=== PATIENT | female | born 1990 | race Caucasian/White ===

== ENCOUNTER 2016-03-20 03:06 | Inpatient (IN) | payer OTHER ==
[~2016-03-20] VITALS: Ht 170.2 cm; Wt 80.1 kg
[~2016-03-20 03:06] MED LIST: ABIL10TA OR; BUSP10TA PO; BUSP15TA47 PO; Calcium/Vitamin D; DEPA1TAB3 PO; DEPA250T2 PO; DEPA250T32 PO; DEPA500T2 PO; DIVA250T PO; DIVA500T3 PO; DIVALPROEX PO; EPIP0.3I2 IM; EPIPEN IM; EXCETAB81 PO; FLUO10CA9 PO; FLUO20CA8 PO; FLUO20CA9 PO; GABA600T PO; LATU20TA PO; NEUR600T OR; NEUR600T PO; OMEP20CA3 PO; PALI1TAB2 PO; PROZ10CA7 PO; PROZ20CA11 PO; TRAZ50TA4 PO; TRAZO50TA PO; WELL100T2 OR; ZOLO100T OR; ZOLO50TA OR; [UNRECOGNIZED DRUG - OTHER] PO; [UNRECOGNIZED DRUG - OTHER] PO
[2016-03-20 03:48] LABS: MEAN CORPUSCULAR HEMOGLOBIN 28.6 pg (27.0-33.0); MEAN CORPUSCULAR HGB CONC 32.7 g/dl (32.0-36.5); MEAN CORPUSCULAR VOLUME 87.5 fl (80.0-96.0); RED CELL DISTRIBUTION WIDTH 13.1 % (11.5-14.5)
[2016-03-20] MEDS ORDERED: ADACEL/BOOSTRIX VACCINE (DIPHTH/PERTUSS/ACELL/TETANUS)0.5ML SYR (90715) As Ordered ONE (03:54)
[2016-03-20 04:05] LABS: CONTROL LINE HCG INT CTR LINE PRESENT
[2016-03-20 04:06] LABS: AMPHETAMINES LEVEL URINE NEGATIVE (NEGATIVE); BENZODIAZEPINES URINE NEGATIVE (NEGATIVE); COCAINE METABOLITE URINE NEGATIVE (NEGATIVE); CONTROL LINE INT CTR LINE PRESENT; METHADONE URINE NEGATIVE (NEGATIVE); OPIATES URINE NEGATIVE (NEGATIVE); TRICYCLIC ANTIDEPRESS URINE NEGATIVE (NEGATIVE)
[2016-03-20 04:18] LABS: ALBUMIN 3.8 GM/DL (3.2-5.2); ALBUMIN/GLOBULIN RATIO 1.15 (1.00-1.93); ALKALINE PHOSPHATASE 57 U/L (45-117); ALT/SGPT 15 U/L (12-78); ANION GAP 11 MEQ/L (8-16); AST/SGOT 15 U/L (15-37); BILIRUBIN,DIRECT < 0.1 MG/DL (0.0-0.2); BILIRUBIN,TOTAL 0.1 MG/DL (0.2-1.0); BLOOD UREA NITROGEN 7 MG/DL (7-18); CALCIUM LEVEL 8.5 MG/DL (8.5-10.1); CARBON DIOXIDE LEVEL 25 MEQ/L (21-32); CHLORIDE LEVEL 106 MEQ/L (98-107); CREATININE FOR GFR 0.68 MG/DL (0.55-1.02); GLOMERULAR FILTRATION RATE > 60.0 (>60); GLUCOSE, FASTING 92 MG/DL (70-105); POTASSIUM SERUM 3.9 MEQ/L (3.5-5.1); SODIUM LEVEL 142 MEQ/L (136-145); TOTAL PROTEIN 7.1 GM/DL (6.4-8.2)
[2016-03-20] MEDS ORDERED: MOM 30ML SUSPENSION UDC PO PRN (04:30)
[2016-03-20] MEDS ORDERED: MAALOX 30 ML SUSP *UDC PO PRN (04:30)
[2016-03-20] MEDS ORDERED: HALOPERIDOL 5 MG TAB PO PRN (04:30)
[2016-03-20 04:52] VITALS: BP 135/87
--- NOTE | 2016-03-20 05:23 | EDDOCDS ---
Physician Documentation [facility] Name: Ellie Santos Age: 25 yrs Sex: Female : 1990 Arrival Date: 03/20/2016 Time: 03:06 Bed OBSERVATION Private MD: Disposition: 03/20/16 05:20 Hospitalization ordered by Stevo Brenner for Inpatient Admission. Preliminary diagnosis are Intentional self-harm by other sharp object, Personal risk factors, not elsewhere classified. - Bed requested for Admit. - Status is Inpatient Admission. kb5 - Condition is Stable. - Problem is an ongoing problem. - Symptoms are unchanged. Historical: - Allergies: bee stings (Anaphylaxis); Hydroxyzine (unable to void); - Home Meds: 1. Depakote 500 mg Oral TbEC 1 tab 2 times per day (Last dose: 03/19/2016) 2. fluoxetine 40 mg oral cap 1 cap once daily (Last dose: 03/19/2016) 3. gabapentin 600 mg Oral tab 1 tab 3 times per day (Last dose: 03/19/2016) 4. omeprazole 20 mg Oral TbEC 20 mg daily (Last dose: 03/19/2016 17:00) 5. Excedrin Migraine 250-250-65 mg Oral tab 2 tablets as needed (Last dose: 03/19/2016 20:00) - PMHx: Anxiety; Bipolar disorder; GERD; PTSD; Migraine Headaches; Seizures; Cirrhosis; - PSHx: none; - Social history: Smoking status: Patient states was never smoker of tobacco. No barriers to communication noted, The patient speaks fluent Thai, Speaks appropriately for age. - Family history: Not pertinent. - : The pt / caregiver states he / she is not on anticoagulants. Home medication list is obtained from the patient, [employer] import data. - Exposure Risk Screening:: None identified. [employer]SI[employer] RU[employer]ER: 03/20 03:36 LMP 03/02/2016 kmg1 Vital Signs: 03:50 BP 124 / 72; Pulse 94; Resp 18; Temp 98.5(O); Pulse Ox 100% on R/A; Weight 77.11 kg / kb5 170 lbs (R); Height 5 ft. 7 in. (170.18 cm); Pain 0/10; 03:50 Body Mass Index 26.63 (77.11 kg, 170.18 cm) kb5 MDM: 03:10 Consult PFS/PSA/Irrigating Pump Operator ordered. cs11 03:10 Consult PFS/PSA/Irrigating Pump Operator: Patient's case requires discussion with on-call cs11 Psychiatrist ordered. 03:10 PSA/PFS to call Nursing [employer], to enter patient data on [place] Safe Act if patient cs11 involuntarily admitted or transferred for SI or HI ordered. 03:10 Confirm accurate psychiatric medication list and times of last dosage ordered. cs11 03:10 Detain Pt Until Medically/PFS Cleared ordered. cs11 03:10 Acetaminophen Level Ordered. EDMS 03:10 Basic Metabolic Profile Ordered. EDMS 03:11 Complete Blood Count Ordered. EDMS 03:11 Drug Eval Toxicology ED Only Ordered. EDMS 03:11 Ethyl Alcohol (ethanol) Ordered. EDMS 03:11 HCG,Serum Qualitative Ordered. EDMS 03:11 Liver Profile Ordered. EDMS 03:11 Salicylate Level Ordered. EDMS 03:11 Thyroid Stimulating Hormone Ordered. EDMS 03:11 DEPAKOTE Ordered. EDMS 03:11 Ammonia (Little Green Tube on Ice, Not Pea Green) Ordered. EDMS 03:44 Tetanus- Diptheria-Acellular Pertussis 0.5 ml IM once; Routine booster 10-64yrs, >64 cs11 with child contact [employer] ordered. 04:13 Consult PFS/PSA/Irrigating Pump Operator complete. cl 04:13 Consult PFS/PSA/Irrigating Pump Operator: Patient's case requires discussion with on-call cl Psychiatrist complete. 04:13 PSA/PFS to call Nursing [employer], to enter patient data [place] Safe [place] if patient cl involuntarily admitted or transferred for SI or HI complete. 04:34 Admit to IMHU: ordered. EDMS 04:34 REGULAR DIET ordered. EDMS 04:35 [facility] Legal paperwork was scanned into [employer] and attached to record. cl 04:49 Acetaminophen Level Reviewed. cs11 04:49 Liver Profile Reviewed. cs11 04:49 Salicylate Level Reviewed. cs11 04:49 DEPAKOTE Reviewed. cs11 04:49 Basic Metabolic Profile Reviewed. cs11 04:49 Complete Blood Count Reviewed. cs11 04:49 Drug Eval Toxicology ED Only Reviewed. cs11 04:49 Ethyl Alcohol (ethanol) Reviewed. cs11 04:49 HCG,Serum Qualitative Reviewed. cs11 04:49 Thyroid Stimulating Hormone Reviewed. cs11 04:49 Ammonia (Little Green Tube on Ice, Not Pea Green) Reviewed. cs11 04:49 Consult PFS/PSA/Socail Worker: Cleared medically for eval ordered. cs11 05:01 Consult PFS/PSA/Socail Worker: Cleared medically for eval complete. cl 05:02 [facility] Payment Agreement was scanned into [employer] and attached to record. [facility] 05:02 Financial registration complete. a 05:19 BED REQUEST+ADM ordered. EDMS Administered Medications: 03:58 Drug: Tetanus- Diptheria-Acellular Pertussis 0.5 ml [diphth,pertussis(acel),tetanus 2.5 ka4 Lf unit-8 mcg-5 Lf/0.5mL IM syringe (0.5 mL)] {Mannequin Decorator: [employer]. Exp: 05/04/2018. Lot #: [id number]. } Route: IM; Site: left deltoid; Signatures: Dispatcher [employer] EDMS Romelia Barrera, RN RN kmg1 Juanita, Hira, PSA PSA cl Wilfrid Ragland, NUTRITIONALIST NUTRITIONALIST kb5 Saravanan Kaminski, DO cs11 Hannah Stafford,SLITTER OPERATOR SLITTER OPERATOR ka4 Arel, Lourdes cason The chart was reviewed and I authenticate all verbal orders and agree with the evaluation and treatment provided.Attachments: 05:02 [facility] Payment Agreement [facility] MTDD
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
[2016-03-20] MEDS: LORazepam 1 MG TAB PO PRN (05:46)
[2016-03-20] MEDS ORDERED: DEPA1TAB3 PO (06:32)
[2016-03-20] MEDS ORDERED: GABA-283 PO (06:32)
[2016-03-20] MEDS ORDERED: PROZ40CA PO (06:32)
[2016-03-20] MEDS: FLUoxetine 20 MG CAP PO SCH (09:13)
[2016-03-20] MEDS: DIVALPROEX 500 MG TAB PO SCH ×2 (09:14→21:11)
[2016-03-20] MEDS: GABAPENTIN 300 MG CAP PO SCH ×3 (09:14→21:11)
[2016-03-20] MEDS: busPIRone 10 MG TAB NG SCH ×2 (13:26→21:11)
[2016-03-20] MEDS ORDERED: DEPA500T2 PO (16:38)
[2016-03-20 18:00] VITALS: BP 135/67
[2016-03-21 06:09] VITALS: BP 130/60
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
[2016-03-21] MEDS: busPIRone 10 MG TAB NG SCH ×2 (08:40→20:35)
[2016-03-21] MEDS: GABAPENTIN 300 MG CAP PO SCH ×3 (08:40→20:35)
[2016-03-21] MEDS: FLUoxetine 20 MG CAP PO SCH (08:40)
[2016-03-21] MEDS: DIVALPROEX 500 MG TAB PO SCH ×2 (08:41→20:35)
[2016-03-21] MEDS: LORazepam 1 MG TAB PO PRN (08:41)
[2016-03-21] MEDS ORDERED: BACITRACIN OINT 30GM TOP PRN (10:45)
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
[2016-03-21 18:00] VITALS: BP 125/68
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
[2016-03-22 06:22] VITALS: BP 104/56
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
--- NOTE | 2016-03-22 06:23 | EDDOCDS ---
Physician Documentation [facility] Name: Ellie Santos Age: 25 yrs Sex: Female : 1990 Arrival Date: 03/20/2016 Time: 03:06 Bed OBSERVATION Private MD: Disposition: 03/20/16 05:20 Hospitalization ordered by Stevo Brenner for Inpatient Admission. Preliminary diagnosis are Intentional self-harm by other sharp object, Personal risk factors, not elsewhere classified. - Bed requested for Admit. - Status is Inpatient Admission. kb5 - Condition is Stable. - Problem is an ongoing problem. - Symptoms are unchanged. Historical: - Allergies: bee stings (Anaphylaxis); Hydroxyzine (unable to void); - Home Meds: 1. Depakote 500 mg Oral TbEC 1 tab 2 times per day (Last dose: 03/19/2016) 2. fluoxetine 40 mg oral cap 1 cap once daily (Last dose: 03/19/2016) 3. gabapentin 600 mg Oral tab 1 tab 3 times per day (Last dose: 03/19/2016) 4. omeprazole 20 mg Oral TbEC 20 mg daily (Last dose: 03/19/2016 17:00) 5. Excedrin Migraine 250-250-65 mg Oral tab 2 tablets as needed (Last dose: 03/19/2016 20:00) - PMHx: Anxiety; Bipolar disorder; GERD; PTSD; Migraine Headaches; Seizures; Cirrhosis; - PSHx: none; - Social history: Smoking status: Patient states was never smoker of tobacco. No barriers to communication noted, The patient speaks fluent Spanish, Speaks appropriately for age. - Family history: Not pertinent. - : The pt / caregiver states he / she is not on anticoagulants. Home medication list is obtained from the patient, [employer] import data. - Exposure Risk Screening:: None identified. ED TEACHER: 03/20 03:36 LMP 03/02/2016 kmg1 Vital Signs: 03:50 BP 124 / 72; Pulse 94; Resp 18; Temp 98.5(O); Pulse Ox 100% on R/A; Weight 77.11 kg / kb5 170 lbs (R); Height 5 ft. 7 in. (170.18 cm); Pain 0/10; 03:50 Body Mass Index 26.63 (77.11 kg, 170.18 cm) kb5 MDM: 03:10 Consult PFS/PSA/Jukebox Coin Collector ordered. cs11 03:10 Consult PFS/PSA/Jukebox Coin Collector: Patient's case requires discussion with on-call cs11 Psychiatrist ordered. 03:10 PSA/PFS to call Nursing Overlock Waistline Joiner, to enter patient data on [place] if patient cs11 involuntarily admitted or transferred for SI or HI ordered. 03:10 Confirm accurate psychiatric medication list and times of last dosage ordered. cs11 03:10 Detain Pt Until Medically/PFS Cleared ordered. cs11 03:10 Acetaminophen Level Ordered. EDMS 03:10 Basic Metabolic Profile Ordered. EDMS 03:11 Complete Blood Count Ordered. EDMS 03:11 Drug Eval Toxicology ED Only Ordered. EDMS 03:11 Ethyl Alcohol (ethanol) Ordered. EDMS 03:11 HCG,Serum Qualitative Ordered. EDMS 03:11 Liver Profile Ordered. EDMS 03:11 Salicylate Level Ordered. EDMS 03:11 Thyroid Stimulating Hormone Ordered. EDMS 03:11 DEPAKOTE Ordered. EDMS 03:11 Ammonia (Little Green Tube on Ice, Not Pea Green) Ordered. EDMS 03:44 Tetanus- Diptheria-Acellular Pertussis 0.5 ml IM once; Routine booster 10-64yrs, >64 cs11 with child contact [place] ordered. 04:13 Consult PFS/PSA/Jukebox Coin Collector complete. cl 04:13 Consult PFS/PSA/Jukebox Coin Collector: Patient's case requires discussion with on-call cl Psychiatrist complete. 04:13 PSA/PFS to call Nursing Overlock Waistline Joiner, to enter [place] data [place] if patient cl involuntarily admitted or transferred for SI or HI complete. 04:34 Admit to IMHU: ordered. EDMS 04:34 REGULAR DIET ordered. EDMS 04:35 [facility] Legal paperwork was scanned into [employer] and attached to record. cl 04:49 Acetaminophen Level Reviewed. cs11 04:49 Liver Profile Reviewed. cs11 04:49 Salicylate Level Reviewed. cs11 04:49 DEPAKOTE Reviewed. cs11 04:49 Basic Metabolic Profile Reviewed. cs11 04:49 Complete Blood Count Reviewed. cs11 04:49 Drug Eval Toxicology ED Only Reviewed. cs11 04:49 Ethyl Alcohol (ethanol) Reviewed. cs11 04:49 HCG,Serum Qualitative Reviewed. cs11 04:49 Thyroid Stimulating Hormone Reviewed. cs11 04:49 Ammonia (Little Green Tube on Ice, Not Pea Green) Reviewed. cs11 04:49 Consult PFS/PSA/Socail Worker: Cleared medically for eval ordered. cs11 05:01 Consult PFS/PSA/Socail Worker: Cleared medically for eval complete. cl 05:02 [facility] Payment Agreement was scanned into [employer] and attached to record. lja 05:02 Financial registration complete. lja 05:19 BED REQUEST+ADM ordered. EDAZ 14:45 T-Sheet-- Draft Copy was scanned into [employer] and attached to record. gb Administered Medications: 03:58 Drug: Tetanus- Diptheria-Acellular Pertussis 0.5 ml [diphth,pertussis(acel),tetanus 2.5 ka4 Lf unit-8 mcg-5 Lf/0.5mL IM syringe (0.5 mL)] {[employer] Attendant: [employer]. Exp: 05/04/2018. Lot #: [id number]. } Route: IM; Site: left deltoid; Signatures: Dispatcher [employer] EDAZ Romelia Barrera, RN RN kmg1 Juanita, Hira, PSA PSA cl Kyarat, Trinh, Reg Reg gb [place], Wilfrid, ONCOLOGY REP SPECIALIST ONCOLOGY REP SPECIALIST kb5 Saravanan Kaimnski, DO cs11 Hannah Stafford,OUTSOLE CUTTER MACHINE OUTSOLE CUTTER MACHINE ka4 Lourdes Dean The chart was reviewed and I authenticate all verbal orders and agree with the evaluation and treatment provided.Attachments: 05:02 [facility] Payment Agreement lja 14:45 T-Sheet-- Draft Copy gb Chart Complete MTDD
--- NOTE | 2016-03-22 06:23 | EDDOCDS ---
Physician Documentation [facility] Name: Ellie Santos Age: 25 yrs Sex: Female : 1990 Arrival Date: 03/20/2016 Time: 03:06 Bed OBSERVATION Private MD: Disposition: 03/20/16 05:20 Hospitalization ordered by Stevo Brenner for Inpatient Admission. Preliminary diagnosis are Intentional self-harm by other sharp object, Personal risk factors, not elsewhere classified. - Bed requested for Admit. - Status is Inpatient Admission. kb5 - Condition is Stable. - Problem is an ongoing problem. - Symptoms are unchanged. Historical: - Allergies: bee stings (Anaphylaxis); Hydroxyzine (unable to void); - Home Meds: 1. Depakote 500 mg Oral TbEC 1 tab 2 times per day (Last dose: 03/19/2016) 2. fluoxetine 40 mg oral cap 1 cap once daily (Last dose: 03/19/2016) 3. gabapentin 600 mg Oral tab 1 tab 3 times per day (Last dose: 03/19/2016) 4. omeprazole 20 mg Oral TbEC 20 mg daily (Last dose: 03/19/2016 17:00) 5. Excedrin Migraine 250-250-65 mg Oral tab 2 tablets as needed (Last dose: 03/19/2016 20:00) - PMHx: Anxiety; Bipolar disorder; GERD; PTSD; Migraine Headaches; Seizures; Cirrhosis; - PSHx: none; - Social history: Smoking status: Patient states was never smoker of tobacco. No barriers to communication noted, The patient speaks fluent Kyrgyz, Speaks appropriately for age. - Family history: Not pertinent. - : The pt / caregiver states he / she is not on anticoagulants. Home medication list is obtained from the patient, [employer] import data. - Exposure Risk Screening:: None identified. ROOM SERVICE MANAGER: 03/20 03:36 LMP 03/02/2016 kmg1 Vital Signs: 03:50 BP 124 / 72; Pulse 94; Resp 18; Temp 98.5(O); Pulse Ox 100% on R/A; Weight 77.11 kg / kb5 170 lbs (R); Height 5 ft. 7 in. (170.18 cm); Pain 0/10; 03:50 Body Mass Index 26.63 (77.11 kg, 170.18 cm) kb5 MDM: 03:10 Consult PFS/PSA/Head Up Operator Helper ordered. cs11 03:10 Consult PFS/PSA/Head Up Operator Helper: Patient's case requires discussion with on-call cs11 Psychiatrist ordered. 03:10 PSA/PFS to call Nursing Dial Screw Assembler, to enter [place] data [place] if patient cs11 involuntarily admitted or transferred for SI or HI ordered. 03:10 Confirm accurate psychiatric medication list and times of last dosage ordered. cs11 03:10 Detain Pt Until Medically/PFS Cleared ordered. cs11 03:10 Acetaminophen Level Ordered. EDMS 03:10 Basic Metabolic Profile Ordered. EDMS 03:11 Complete Blood Count Ordered. EDMS 03:11 Drug Eval Toxicology ED Only Ordered. EDMS 03:11 Ethyl Alcohol (ethanol) Ordered. EDMS 03:11 HCG,Serum Qualitative Ordered. EDMS 03:11 Liver Profile Ordered. EDMS 03:11 Salicylate Level Ordered. EDMS 03:11 Thyroid Stimulating Hormone Ordered. EDMS 03:11 DEPAKOTE Ordered. EDMS 03:11 Ammonia (Little Green Tube on Ice, Not Pea Green) Ordered. EDMS 03:44 Tetanus- Diptheria-Acellular Pertussis 0.5 ml IM once; Routine booster 10-64yrs, >64 cs11 with child contact [place] ordered. 04:13 Consult PFS/PSA/Head Up Operator Helper complete. cl 04:13 Consult PFS/PSA/Head Up Operator Helper: Patient's case requires discussion with on-call cl Psychiatrist complete. 04:13 PSA/PFS to call Nursing Dial Screw Assembler, to enter patient data [place] if patient cl involuntarily admitted or transferred for SI or HI complete. 04:34 Admit to IMHU: ordered. EDMS 04:34 REGULAR DIET ordered. EDMS 04:35 [facility] Legal paperwork was scanned into [facility] and attached to record. cl 04:49 Acetaminophen Level Reviewed. cs11 04:49 Liver Profile Reviewed. cs11 04:49 Salicylate Level Reviewed. cs11 04:49 DEPAKOTE Reviewed. cs11 04:49 Basic Metabolic Profile Reviewed. cs11 04:49 Complete Blood Count Reviewed. cs11 04:49 Drug Eval Toxicology ED Only Reviewed. cs11 04:49 Ethyl Alcohol (ethanol) Reviewed. cs11 04:49 HCG,Serum Qualitative Reviewed. cs11 04:49 Thyroid Stimulating Hormone Reviewed. cs11 04:49 Ammonia (Little Green Tube on Ice, Not Pea Green) Reviewed. cs11 04:49 Consult PFS/PSA/Socail Worker: Cleared medically for eval ordered. cs11 05:01 Consult PFS/PSA/Socail Worker: Cleared medically for eval complete. cl 05:02 [facility] Payment Agreement was scanned into [facility] and attached to record. lja 05:02 Financial registration complete. lja 05:19 BED REQUEST+ADM ordered. EDTX 14:45 T-Sheet-- Draft Copy was scanned into [facility] and attached to record. gb Administered Medications: 03:58 Drug: Tetanus- Diptheria-Acellular Pertussis 0.5 ml [diphth,pertussis(acel),tetanus 2.5 ka4 Lf unit-8 mcg-5 Lf/0.5mL IM syringe (0.5 mL)] {Technical Services Rep: [employer]. Exp: 05/04/2018. Lot #: [id number]. } Route: IM; Site: left deltoid; Signatures: Dispatcher [employer] EDTX Romelia Barrera, RN RN kmg1 Juanita, Hira, PSA PSA cl Kyarat, Trinh, Reg Reg gb [place], Wilfrid, PICKLE SORTER PICKLE SORTER kb5 Saravanan Kaminski, DO cs11 Hannah Stafford,DIGITAL ASSET COORDINATOR DIGITAL ASSET COORDINATOR ka4 Lourdes Dean The chart was reviewed and I authenticate all verbal orders and agree with the evaluation and treatment provided.Attachments: 05:02 [facility] Payment Agreement lja 14:45 T-Sheet-- Draft Copy gb Chart Complete MTDD
[2016-03-22] MEDS: busPIRone 10 MG TAB NG SCH ×2 (08:53→20:59)
[2016-03-22] MEDS: DIVALPROEX 500 MG TAB PO SCH ×2 (08:53→20:59)
[2016-03-22] MEDS: GABAPENTIN 300 MG CAP PO SCH ×3 (08:53→20:59)
[2016-03-22] MEDS: FLUoxetine 20 MG CAP PO SCH (08:53)
[2016-03-22 18:00] VITALS: BP 108/56
--- NOTE | 2016-03-22 20:36 | IPNPDOC ---
[facility] Progress Note Progress Note DATE: 03/22/16 HISTORY: Patient was seen today to evaluate treatment progress on the inpatient unit. Patient attended 1 group last night otherwise has remained isolated to room, in bed sleeping. Patient is able to sit up in bed and engage with junior technical writer, but makes limited eye contact and was initially difficult to engage. Patient reports 3/10 anxiety, 9/10 depression, denies suicidal and homicidal ideation, denies audiovisual hallucinations, and denies urge to engage in self-injurious behavior. Patient indicates her energy level remains low, she denies challenges to concentration, adds appetite is improving. Patient states she has been sleeping well and denies nightmares. Patient indicates she feels her medication regimen is working well so restart of BuSpar is helpful to reduce symptoms anxiety. Senior Sql Server Developer discusses Prozac dose increase in effort to address symptoms of depression, patient indicates she is "unsure" if she wants dose increase. Patient informs junior technical writer she feels her symptoms are more related to "recent events " medication ineffectiveness, indicates medication regimen was effective prior to recent events, but agrees to consider dosing adjustment. Patient denies all medication side effects. Patient reiterates her outpatient psychiatrist does not feel that she has a diagnosis of bipolar disorder, rather feels patient has a personality disorder, and, therefore, patient and psychiatrist reportedly disagree about medication regimen. Patient was strongly encouraged to participate in groups to facilitate development of more effective coping mechanisms and patient agrees to make concerted effort to attend groups. Patient indicates today she would like to discharge to home and to credo and TLS for outpatient services. VITAL SIGNS: See below NEW TEST RESULTS: Depakote level on 03/20/16 was 112. Depakote level on 03/21/16 was 91.1. EKG on 12/23/15 SR CURRENT MEDICATIONS: See below MENTAL STATUS EXAMINATION: Patient presents as disheveled dressed in hospital clothing, is pleasant and cooperative, makes fair eye contact, presents stated age. Patient displays no psychomotor agitation, speech is of normal rate, rhythm , volume, she denies suicidal or homicidal ideation, denies audiovisual hallucinations, denies other psychotic symptoms, further denies obsessions and compulsions. Patient's thought process is generally linear, logical, goal- directed, and memory appears to be intact. Patient's insight and judgment are poor and she describes her mood as "I guess sad," affect is blunted but patient brightens X 3, congruent with mood. DIAGNOSES: Bipolar disorder, depressed, Posttraumatic stress disorder, Bulimia nervosa, Pica. ASSESSMENT: Patient has been isolating to room and sleeping, has attended X 1, is not engaging with peers or staff. Patient informs junior technical writer that she may attend groups later. Patient denies suicidal and homicidal ideation and indicates she feels able to effectively engage in the safety planning process, further verbalizing awareness of how to access supportive services on the unit if needed. Patient was strongly encouraged to participate in unit programming and is today able to verbalize pertaining to discharge plan. She was asked to consider Prozac dose increase in effort to address symptoms of depression and anxiety, currently believes her symptoms are related to life stressors, not medications, but agrees to consider dose change. Will continue current medication regimen and titrate as tolerated by patient, and will monitor for side effects. MANAGEMENT PLAN: Continue current medication regimen Maintain safety precautions Patient to attend groups and participate in unit programming to develop coping strategies Engage patient in discharge planning process and arrange meeting with support system when appropriate Patient to follow up with PCM upon discharge Vital Signs Vital Sign - Last 24 Hours 03/22/16 03/22/16 06:22 18:00 Temp 97.3 97.8 Pulse 74 81 Resp 16 16 B/P 104/56 108/56 O2 Delivery Room Air Current Medications Current Medications Acetaminophen (Tylenol) 650 mg Q6HP PRN PO HEADACHE or DISCOMFORT; Start at 04:30; Stop 04/19/16 at 04:29 Al Hydrox/Mg Hydrox/Simethicone (Mylanta) 30 ml Q4HP PRN PO HEARTBURN/ INDIGESTION; Start 03/20/16 at 04:30; Stop 04/19/16 at 04:29 Bacitracin (Bacitracin Oint) 1 dose BIDP PRN TOP REDNESS/IRRITATION; Start 03/21 at 10:45; Stop 04/20/16 at 10:44 Buspirone HCl (Buspar) 10 mg BID NG Last administered on 03/22/16t 08:53; Start 03/20/16 at 09:00; Stop 04/19/16 at 08:59 Diphtheria/ Tetanus/Acell Pertussis (Adacel/Boostrix) 0.5 ml STK-MED ONCE As Ordered ; Start 03/20/16 at 03:54; Stop 03/20/16 at 03:55; Status DC Divalproex Sodium (Depakote) 500 mg BID PO Last administered on 03/22/16 08:53 ; Start 03/20/16 at 09:00; Stop 04/19/16 at 08:59 Fluoxetine HCl (PROzac) 40 mg DAILY PO Last administered on 03/22/16 08:53; Start 03/20/16 at 09:00; Stop 04/19/16 at 08:59 Gabapentin (Neurontin) 600 mg TID PO Last administered on 03/22/16 16:58; Start 03/20/16 at 09:00; Stop 04/19/16 at 08:59 Haloperidol (Haldol) 5 mg Q4HP PRN PO ANXIETY/AGITATION; Start 03/20/16 at 04:30 ; Stop 04/19/16 at 04:29 Lorazepam (Ativan) 1 mg Q4HP PRN PO ANXIETY/AGITATION Last administered on 08:41; Start 03/20/16 at 04:30; Stop 03/27/16 at 04:29 Magnesium Hydroxide (Milk Of Magnesia) 30 ml DAILYPRN PRN PO CONSTIPATION; Start 03/20/16 at 04:30; Stop 04/19/16 at 04:29 Trazodone HCl (Desyrel) 50 mg QHSP PRN PO INSOMNIA; Start 03/20/16 at 04:30; Stop 04/19/16 at 04:29 Allergies Coded Allergies: Hydroxyzine (Verified Adverse Reaction, Intermediate, URINARY RETENTION, ) Adilia Allison Mar 22, 2016 20:36
[2016-03-22] MEDS: traZODone 50 MG TAB PO PRN (22:43)
[2016-03-23 06:26] VITALS: BP 132/67
[2016-03-23] MEDS ORDERED: OMEP20CA3 PO (07:55)
[2016-03-23] MEDS: FLUoxetine 20 MG CAP PO SCH (08:43)
[2016-03-23] MEDS: busPIRone 10 MG TAB NG SCH (08:44)
[2016-03-23] MEDS: GABAPENTIN 300 MG CAP PO SCH ×3 (08:44→21:05)
[2016-03-23] MEDS: DIVALPROEX 500 MG TAB PO SCH ×2 (08:44→21:05)
[2016-03-23] MEDS ORDERED: OMEPRAZOLE 20 MG CAP PO SCH (09:00)
--- NOTE | 2016-03-23 14:27 | IPNPDOC ---
[facility] Progress Note Progress Note DATE: 03/23/16 HISTORY: Patient was seen today to evaluate treatment progress on the inpatient unit. Patient is observed to be sleeping in bed but is easily roused and sits up in bed to engage with commercial underwriter. Patient reports improvement to symptoms of depression noting she feels "better," rates depression level as 7/10, anxiety 0/ 10, denies suicidal and homicidal ideation, denies audiovisual hallucinations, and denies urge to engage in self-injurious behavior. Patient indicates she last experienced passive SI symptoms involving "I just didn't really care if I lived" last evening, denies experiencing symptoms today. When commercial underwriter inquires as to patient recently admitting to attempting to hang herself in the bathroom right after being admitted to Hospital patient states, "that was stupid and I fell; I guess I just wanted to not be here." Patient states she continues to feel tired, but reports improvement in energy level, adds she intends to make effort to be up out of bed and more visible on unit and attend groups. Patient denies sleep challenges but reports experiencing nightmare 1 last night. Patient indicates her appetite continues to improve and concentration and energy levels are "better." Patient again verbalizes that she feels current medication regimen is effective and denies medication side effects. At previous discharge patient was taking BuSpar 20 mg and patient is agreeable to dose increase in effort to further reduce symptoms of anxiety and depression. Patient was again strongly encouraged to participate in groups to facilitate development of more effective coping mechanisms and patient agrees to make concerted effort to attend groups. VITAL SIGNS: See below NEW TEST RESULTS: No new results. Depakote level on 03/20/16 was 112. Depakote level on 03/21/16 was 91.1. EKG on 12/23/15 SR. HCG negative on admission. CURRENT MEDICATIONS: See below MENTAL STATUS EXAMINATION: Patient continues to present as disheveled, dressed in hospital clothing, is pleasant and cooperative, makes improved eye contact today. Patient displays no psychomotor agitation, speech is of normal rate, rhythm, volume, she denies suicidal or homicidal ideation, denies audiovisual hallucinations, denies other psychotic symptoms, further denies obsessions and compulsions. Patient's thought process remains generally linear, logical, goal- directed, and memory appears to be intact. Patient's insight and judgment remain poor and she describes her mood as "better, I'm still sad, but I feel a little better today." Patient's affect remains blunted but she brightens with increased frequency, affect is congruent with mood. DIAGNOSES: Bipolar disorder, depressed, Posttraumatic stress disorder, Bulimia nervosa, Pica. ASSESSMENT: Patient continues to isolate to room and sleep, but has been more visible and has been attending more groups. Patient is more engageable today, she makes improved eye contact and she brightens appropriately during interaction with commercial underwriter. Patient speaks openly about attempt to hang self right after being admitted to unit, displays some insight as to driving force behind, and dangerousness of, hanging attempt. Nursing staff is aware and understand the patient is to be placed on one-to-one immediately should she give any indication of an attempt to repeat the behavior. Patient denies all suicidal and homicidal ideation and is able to agree to alert staff if symptoms return. Patient is also able to effectively engage in safety planning process and verbalizes understanding of how to access staff support if needed. Patient indicates today she would like to discharge to home and to cred[facility] and TLS for outpatient services when ready. Patient is today agreeable to increase in BuSpar dose, was taking 20 mg twice a day at time of last discharge from hospital reportedly with good effect and no side effects. Will continue patient' s medication regimen and monitor for side effects. Will also increase BuSpar to 20 mg by mouth twice a day, will continue to evaluate need for dosing adjustment to Prozac if patient is agreeable. MANAGEMENT PLAN: Increase BuSpar to 20 mg by mouth twice a day, otherwise continue current medication regimen Maintain safety precautions Patient to attend groups and participate in unit programming to develop coping strategies Engage patient in discharge planning process and arrange meeting with support system when appropriate Patient to follow up with PCM upon discharge Vital Signs Vital Sign - Last 24 Hours 03/22/16 03/23/16 18:00 06:26 Temp 97.8 97.1 Pulse 81 62 Resp 16 16 B/P 108/56 132/67 O2 Delivery Room Air Current Medications Current Medications Acetaminophen (Tylenol) 650 mg Q6HP PRN PO HEADACHE or DISCOMFORT; Start at 04:30; Stop 04/19/16 at 04:29 Al Hydrox/Mg Hydrox/Simethicone (Mylanta) 30 ml Q4HP PRN PO HEARTBURN/ INDIGESTION; Start 03/20/16 at 04:30; Stop 04/19/16 at 04:29 Bacitracin (Bacitracin Oint) 1 dose BIDP PRN TOP REDNESS/IRRITATION; Start 03/21 at 10:45; Stop 04/20/16 at 10:44 Buspirone HCl (Buspar) 10 mg BID NG Last administered on 03/23/16 08:44; Start 03/20/16 at 09:00; Stop 04/19/16 at 08:59 Diphtheria/ Tetanus/Acell Pertussis (Adacel/Boostrix) 0.5 ml STK-MED ONCE As Ordered ; Start 03/20/16 at 03:54; Stop 03/20/16 at 03:55; Status DC Divalproex Sodium (Depakote) 500 mg BID PO Last administered on 03/23/16 08:44 ; Start 03/20/16 at 09:00; Stop 04/19/16 at 08:59 Fluoxetine HCl (PROzac) 40 mg DAILY PO Last administered on 03/23/16 08:43; Start 03/20/16 at 09:00; Stop 04/19/16 at 08:59 Gabapentin (Neurontin) 600 mg TID PO Last administered on 03/23/16 08:44; Start 03/20/16 at 09:00; Stop 04/19/16 at 08:59 Haloperidol (Haldol) 5 mg Q4HP PRN PO ANXIETY/AGITATION; Start 03/20/16 at 04:30 ; Stop 04/19/16 at 04:29 Lorazepam (Ativan) 1 mg Q4HP PRN PO ANXIETY/AGITATION Last administered on 08:41; Start 03/20/16 at 04:30; Stop 03/27/16 at 04:29 Magnesium Hydroxide (Milk Of Magnesia) 30 ml DAILYPRN PRN PO CONSTIPATION; Start 03/20/16 at 04:30; Stop 04/19/16 at 04:29 Omeprazole (PriLOSEC) 20 mg DAILY PO ; Start 03/23/16 at 09:00; Stop 03/23/16 at 11:00; Status DC Omeprazole (PriLOSEC) 20 mg DAILY@17 PO ; Start 03/23/16 at 17:00; Stop 04/22/16 at 16:59 Trazodone HCl (Desyrel) 50 mg QHSP PRN PO INSOMNIA Last administered on t 22:43; Start 03/20/16 at 04:30; Stop 04/19/16 at 04:29 Allergies Coded Allergies: Hydroxyzine (Verified Adverse Reaction, Intermediate, URINARY RETENTION, ) Adilia Allison Mar 23, 2016 14:27
[2016-03-23] MEDS: OMEPRAZOLE 20 MG CAP PO SCH (16:38)
[2016-03-23 18:00] VITALS: BP 108/51
[2016-03-23] MEDS: ACETAMINOPHEN TAB 650MG DOSE (2X325MG) PO PRN (18:21)
[2016-03-23] MEDS: busPIRone 10 MG TAB PO SCH (21:05)
[2016-03-24 06:00] VITALS: BP 107/79
[2016-03-24] MEDS: FLUoxetine 20 MG CAP PO SCH (08:24)
[2016-03-24] MEDS: busPIRone 10 MG TAB PO SCH ×2 (08:24→20:56)
[2016-03-24] MEDS: DIVALPROEX 500 MG TAB PO SCH ×2 (08:25→20:56)
[2016-03-24] MEDS: GABAPENTIN 300 MG CAP PO SCH ×3 (08:25→20:56)
[2016-03-24] MEDS: OMEPRAZOLE 20 MG CAP PO SCH (16:43)
[2016-03-24 18:16] VITALS: BP 109/56
--- NOTE | 2016-03-24 20:41 | IPNPDOC ---
[facility] Progress Note Progress Note DATE: 03/24/16 HISTORY: Patient was seen today to evaluate treatment progress on the inpatient unit. Patient is observed to be sleeping in bed but and agrees to meet with rewriter in office. Patient reports some improvement to symptoms of depression stating, "I've been up more and I've attended some groups adn I took a shower; it helped me feel better." Patient rates depression level as 6/10, anxiety 3/10 , denies suicidal and homicidal ideation, denies audiovisual hallucinations, and denies urge to engage in self-injurious behavior. Patient indicates she last experienced passive SI symptoms last night (" I just let it would be okay if I wasn't here, but I didn't want to ."), denies experiencing symptoms today, adds when she experienced symptoms last night she had no plan or intent. Patient states she continues to feel tired, but reports improvement in energy level. Patient denies sleep challenges but reports experiencing nightmare 1 last night. Patient indicates her appetite continues to improve and concentration and energy levels are also improving. Patient indicates recent dose increase to BuSpar is helping to improve mood and reduce symptoms of anxiety, continues to feel rested of medication regimen remains effective and she denies medication side effects. Patient was again strongly encouraged to continue to participate in groups to facilitate development of more effective coping mechanisms. VITAL SIGNS: See below NEW TEST RESULTS: No new results. Depakote level on 03/20/16 was 112. Depakote level on 03/21/16 was 91.1. EKG on 12/23/15 SR. HCG negative on admission. CURRENT MEDICATIONS: See below MENTAL STATUS EXAMINATION: Patient appears less disheveled, she has showered, she is dressed in hospital clothing, remains pleasant and cooperative and makes improved eye contact. Patient is more engageable, displays no psychomotor agitation, speech is of normal rate, rhythm, volume, she denies suicidal or homicidal ideation, denies audiovisual hallucinations, denies other psychotic symptoms, further denies obsessions and compulsions. Patient's thought process remains generally linear, logical, goal-directed, and memory appears to be intact. Patient's insight and judgment remain poor and she describes her mood as "Ok, getting better I think, I have dark thoughts but not as much." Patient' s affect remains blunted but she brightens with increased frequency, affect is congruent with mood. DIAGNOSES: Bipolar disorder, depressed, Posttraumatic stress disorder, Bulimia nervosa, Pica. ASSESSMENT: Patient continues to isolate to room and sleep at times but at other times she is more visible and has been attending more groups and is more easily engaged. Patient denies all suicidal and homicidal ideation and is able to agree to alert staff if symptoms return. Patient makes request for bra today indicating that she feels uncomfortable on unit in hospital clothing without bra , agrees to be safe with bra and understands that if bra has underwire in it she may not have it, patient is accepting of rewriter's response. Patient is able to effectively engage in safety planning process and verbalizes understanding of how to access staff support if needed. Patient reiterates today she would like to discharge to home and to credo and TLS for outpatient services when ready. Will continue to monitor patient's response to recent BuSpar dose increase as well as patient's response to rest of medication regimen, will continue to evaluate need for dosing adjustment to Prozac. MANAGEMENT PLAN: Continue current medication regimen Maintain safety precautions Patient may have bra if it has no underwire Patient to attend groups and participate in unit programming to develop coping strategies Engage patient in discharge planning process and arrange meeting with support system when appropriate Patient to follow up with PCM upon discharge Vital Signs Vital Sign - Last 24 Hours 03/24/16 03/24/16 06:00 18:16 Temp 98.3 97.1 Pulse 71 87 Resp 18 14 B/P 107/79 109/56 Current Medications Current Medications Acetaminophen (Tylenol) 650 mg Q6HP PRN PO HEADACHE or DISCOMFORT Last administered on 03/23/16 18:21; Start 03/20/16 at 04:30; Stop 04/19/16 at 04:29 Al Hydrox/Mg Hydrox/Simethicone (Mylanta) 30 ml Q4HP PRN PO HEARTBURN/ INDIGESTION; Start 03/20/16 at 04:30; Stop 04/19/16 at 04:29 Bacitracin (Bacitracin Oint) 1 dose BIDP PRN TOP REDNESS/IRRITATION Last administered on 03/23/16 19:18; Start 03/21/16 at 10:45; Stop 04/20/16 at 10:44 Buspirone HCl (Buspar) 10 mg BID NG Last administered on 03/23/16 08:44; Start 03/20/16 at 09:00; Stop 03/23/16 at 14:30; Status DC Buspirone HCl (Buspar) 20 mg BID PO Last administered on 03/24/16 08:24; Start 03/23/16 at 21:00; Stop 04/23/16 at 21:00 Diphtheria/ Tetanus/Acell Pertussis (Adacel/Boostrix) 0.5 ml STK-MED ONCE As Ordered ; Start 03/20/16 at 03:54; Stop 03/20/16 at 03:55; Status DC Divalproex Sodium (Depakote) 500 mg BID PO Last administered on 03/24/16 08:25 ; Start 03/20/16 at 09:00; Stop 04/19/16 at 08:59 Fluoxetine HCl (PROzac) 40 mg DAILY PO Last administered on 03/24/16 08:24; Start 03/20/16 at 09:00; Stop 04/19/16 at 08:59 Gabapentin (Neurontin) 600 mg TID PO Last administered on 03/24/16 16:43; Start 03/20/16 at 09:00; Stop 04/19/16 at 08:59 Haloperidol (Haldol) 5 mg Q4HP PRN PO ANXIETY/AGITATION; Start 03/20/16 at 04:30 ; Stop 04/19/16 at 04:29 Lorazepam (Ativan) 1 mg Q4HP PRN PO ANXIETY/AGITATION Last administered on 08:41; Start 03/20/16 at 04:30; Stop 03/27/16 at 04:29 Magnesium Hydroxide (Milk Of Magnesia) 30 ml DAILYPRN PRN PO CONSTIPATION; Start 03/20/16 at 04:30; Stop 04/19/16 at 04:29 Omeprazole (PriLOSEC) 20 mg DAILY PO ; Start 03/23/16 at 09:00; Stop 03/23/16 at 11:00; Status DC Omeprazole (PriLOSEC) 20 mg DAILY@17 PO Last administered on 03/24/16 16:43; Start 03/23/16 at 17:00; Stop 04/22/16 at 16:59 Trazodone HCl (Desyrel) 50 mg QHSP PRN PO INSOMNIA Last administered on t 22:43; Start 03/20/16 at 04:30; Stop 04/19/16 at 04:29 Allergies Coded Allergies: Hydroxyzine (Verified Adverse Reaction, Intermediate, URINARY RETENTION, ) Adilia Allison Mar 24, 2016 20:41
[2016-03-25] MEDS: traZODone 50 MG TAB PO PRN ×2 (01:16→21:35)
[2016-03-25 06:38] VITALS: BP 106/54
[2016-03-25] MEDS: DIVALPROEX 500 MG TAB PO SCH ×2 (08:41→21:35)
[2016-03-25] MEDS: busPIRone 10 MG TAB PO SCH ×2 (08:41→21:35)
[2016-03-25] MEDS: GABAPENTIN 300 MG CAP PO SCH ×3 (08:41→21:35)
[2016-03-25] MEDS: FLUoxetine 20 MG CAP PO SCH (08:41)
[2016-03-25] MEDS: OMEPRAZOLE 20 MG CAP PO SCH (16:18)
[2016-03-25 18:00] VITALS: BP 116/54
[2016-03-26 06:31] VITALS: BP 110/57
[2016-03-26] MEDS: busPIRone 10 MG TAB PO SCH ×2 (08:41→20:45)
[2016-03-26] MEDS: FLUoxetine 20 MG CAP PO SCH (08:41)
[2016-03-26] MEDS: GABAPENTIN 300 MG CAP PO SCH ×3 (08:42→20:45)
[2016-03-26] MEDS: DIVALPROEX 500 MG TAB PO SCH ×2 (08:42→20:45)
[2016-03-26] MEDS: LORazepam 1 MG TAB PO PRN (14:00)
[2016-03-26] MEDS: OMEPRAZOLE 20 MG CAP PO SCH (16:32)
[2016-03-26 18:20] VITALS: BP 105/57
[2016-03-26] MEDS: traZODone 50 MG TAB PO PRN (20:45)
[2016-03-27 05:52] VITALS: BP 120/57
[2016-03-27] MEDS: GABAPENTIN 300 MG CAP PO SCH ×3 (09:07→22:11)
[2016-03-27] MEDS: DIVALPROEX 500 MG TAB PO SCH ×2 (09:07→22:11)
[2016-03-27] MEDS: FLUoxetine 20 MG CAP PO SCH (09:07)
[2016-03-27] MEDS: busPIRone 10 MG TAB PO SCH ×2 (09:07→22:11)
[2016-03-27] MEDS: OMEPRAZOLE 20 MG CAP PO SCH (16:14)
[2016-03-27 18:19] VITALS: BP 108/56
--- NOTE | 2016-03-27 19:41 | IPNPDOC ---
[facility] Progress Note Progress Note DATE: 03/27/16 HISTORY: Patient was seen today to evaluate treatment progress on the inpatient unit. Patient is observed to be engaging with peers in activity room. Patient reports improvement of symptoms of depression stating, "I've I've continued to improve." Patient indicates she last experienced passive SI symptoms last (" I just thought it would be okay if I wasn't here, but I didn't want to ."), denies experiencing symptoms today, adds when she experienced symptoms last she had no plan or intent. Patient states she continues to feel tired, but is otherwise good. Patient denies sleep challenges. Patient indicates her appetite continues to improve and concentration and energy levels are also improving. Patient indicates recent dose increase to BuSpar is helping to improve mood and reduce symptoms of anxiety, continues to feel rested on current medication regimen. Patient was again strongly encouraged to continue to participate in groups to facilitate development of more effective coping mechanisms. Pt. feels the art activities are the most enjoyable. VITAL SIGNS: See below. NEW TEST RESULTS: No new results. Depakote level on 03/20/16 was 112. Depakote level on 03/21/16 was 91.1. EKG on 12/23/15 SR. HCG negative on admission. CURRENT MEDICATIONS: See below. MENTAL STATUS EXAMINATION: Patient appears pleasant and cooperative, personal hygiene is good, is dressed in hospital clothing. Pt. makes good eye contact. Patient is engageable, displays no psychomotor agitation, speech is of normal rate, rhythm, volume, she denies suicidal or homicidal ideation, denies audiovisual hallucinations, denies other psychotic symptoms, denies obsessions and compulsions. Patient's thought process remains generally linear, logical, goal-directed and memory appears to be intact. Patient's insight and judgment remain fair to good, and she describes her mood as "Ok, getting better." Patient 's affect remains blunted but she brightens with increased frequency, affect is congruent with mood. Pt. denies suicidal and homicidal ideation, denies audiovisual hallucinations, and denies urge to engage in self-injurious behavior. DIAGNOSES: Bipolar disorder, depressed, Posttraumatic stress disorder, Bulimia nervosa, Pica. ASSESSMENT: Patient is engaging with peers in the activity room. Patient is visible and has been attending more groups and is more easily engaged. Patient denies all suicidal and homicidal ideation and is able to agree to alert staff if symptoms return. Patient is able to effectively engage in safety planning process and verbalizes understanding of how to access staff support if needed. Patient reiterates today she would like to discharge to home and to cred[facility] and [facility] for outpatient services when ready. Will continue to monitor patient's response to recent BuSpar dose increase as well as patient's response to rest of medication regimen, will continue to evaluate need for dosing adjustment to Prozac. MANAGEMENT PLAN: Continue current medication regimen Maintain safety precautions Patient may have bra if it has no underwire Patient to attend groups and participate in unit programming to develop coping strategies Engage patient in discharge planning process and arrange meeting with support system when appropriate Patient to follow up with PCM upon discharge Vital Signs Vital Sign - Last 24 Hours 03/27/16 03/27/16 05:52 18:19 Temp 96.3 98.2 Pulse 70 73 Resp 20 16 B/P 120/57 108/56 Current Medications Current Medications Acetaminophen (Tylenol) 650 mg Q6HP PRN PO HEADACHE or DISCOMFORT Last administered on 03/23/16 18:21; Start 03/20/16 at 04:30; Stop 04/19/16 at 04:29 Al Hydrox/Mg Hydrox/Simethicone (Mylanta) 30 ml Q4HP PRN PO HEARTBURN/ INDIGESTION; Start 03/20/16 at 04:30; Stop 04/19/16 at 04:29 Bacitracin (Bacitracin Oint) 1 dose BIDP PRN TOP REDNESS/IRRITATION Last administered on 03/23/16 19:18; Start 03/21/16 at 10:45; Stop 04/20/16 at 10:44 Buspirone HCl (Buspar) 10 mg BID NG Last administered on 03/23/16 08:44; Start 03/20/16 at 09:00; Stop 03/23/16 at 14:30; Status DC Buspirone HCl (Buspar) 20 mg BID PO Last administered on 03/27/16 09:07; Start 03/23/16 at 21:00; Stop 04/23/16 at 21:00 Diphtheria/ Tetanus/Acell Pertussis (Adacel/Boostrix) 0.5 ml STK-MED ONCE As Ordered ; Start 03/20/16 at 03:54; Stop 03/20/16 at 03:55; Status DC Divalproex Sodium (Depakote) 500 mg BID PO Last administered on 03/27/16 09:07 ; Start 03/20/16 at 09:00; Stop 04/19/16 at 08:59 Fluoxetine HCl (PROzac) 40 mg DAILY PO Last administered on 03/27/16 09:07; Start 03/20/16 at 09:00; Stop 04/19/16 at 08:59 Gabapentin (Neurontin) 600 mg TID PO Last administered on 03/27/16 16:03; Start 03/20/16 at 09:00; Stop 04/19/16 at 08:59 Haloperidol (Haldol) 5 mg Q4HP PRN PO ANXIETY/AGITATION Last administered on 20:45; Start 03/20/16 at 04:30; Stop 04/19/16 at 04:29 Lorazepam (Ativan) 1 mg Q4HP PRN PO ANXIETY/AGITATION Last administered on 14:00; Start 03/20/16 at 04:30; Stop 03/27/16 at 04:29; Status DC Magnesium Hydroxide (Milk Of Magnesia) 30 ml DAILYPRN PRN PO CONSTIPATION; Start 03/20/16 at 04:30; Stop 04/19/16 at 04:29 Miscellaneous (Unresolved Clarification Entry) SEE LABEL COMMENTS UNRESOLVED XX ; Start 03/27/16 at 00:01; Stop 04/26/16 at 00:00 Omeprazole (PriLOSEC) 20 mg DAILY PO ; Start 03/23/16 at 09:00; Stop 03/23/16 at 11:00; Status DC Omeprazole (PriLOSEC) 20 mg DAILY@17 PO Last administered on 03/27/16 16:14; Start 03/23/16 at 17:00; Stop 04/22/16 at 16:59 Trazodone HCl (Desyrel) 50 mg QHSP PRN PO INSOMNIA Last administered on 20:45; Start 03/20/16 at 04:30; Stop 04/19/16 at 04:29 Allergies Coded Allergies: Hydroxyzine (Verified Adverse Reaction, Intermediate, URINARY RETENTION, ) GERTRUDE GIRALDO NP Mar 27, 2016 19:41 BG BOX MD Mar 28, 2016 14:17
[2016-03-28 06:02] VITALS: BP 111/64
[2016-03-28] MEDS: busPIRone 10 MG TAB PO SCH ×2 (08:53→21:00)
[2016-03-28] MEDS: GABAPENTIN 300 MG CAP PO SCH ×3 (08:53→21:00)
[2016-03-28] MEDS: FLUoxetine 20 MG CAP PO SCH (08:53)
[2016-03-28] MEDS: DIVALPROEX 500 MG TAB PO SCH ×2 (08:53→21:00)
--- NOTE | 2016-03-28 15:15 | IPNPDOC ---
[facility] Progress Note Progress Note DATE: 03/28/16 HISTORY: Patient was seen today to evaluate treatment progress on the inpatient unit. Patient was observed to be resting in bed between groups, is easily roused and gets up to meet with freelance writer in office. Patient reports improved symptoms of anxiety and depression, denies audiovisual hallucinations, states she last experienced symptoms of passive SI the day before last noting, "I just basically didn't care if I woke up, like it would be okay if I wasn't here anymore." Patient denies current urge to engage in SIB, adds when she experienced symptoms last she had no plan or intent. Patient took Ativan 1 mg po yesterday afternoon to address symptoms of increasing anxiety. Patient reports reduced fatigue and states she has been sleeping well with no nightmares. Patient reports stable appetite, denies challenges with concentration and energy levels. Patient indicates BuSpar continues to aid with mood and reduce symptoms of anxiety, denies medication side effects. Patient was strongly encouraged to continue to participate in groups on unit to facilitate development of more effective coping mechanisms. Patient makes request for Trazodone when discharged to address intermittent sleep challenges involving nightmares, states she takes medication on unit with good effect, denies need for medication on nightly basis, adds she has taken Prazosin in past with side effects and poor effect. VITAL SIGNS: See below. NEW TEST RESULTS: No new results. Depakote level on 03/20/16 was 112. Depakote level on 03/21/16 was 91.1. EKG on 12/23/15 SR. HCG negative on admission. CURRENT MEDICATIONS: See below. MENTAL STATUS EXAMINATION: Patient appears pleasant and cooperative, personal hygiene continues to improve, she is dressed in hospital clothing and states she showered this morning. Patient makes good eye contact, is engageable, displays no psychomotor agitation, speech is of normal rate, rhythm, volume, she denies suicidal or homicidal ideation, denies audiovisual hallucinations, denies other psychotic symptoms, denies obsessions and compulsions. Patient's thought process remains generally linear, logical, goal-directed and memory appears to be intact. Patient's insight and judgment remain fair but are improving, and she describes her mood as "Good." Patient's affect is constricted and she continues to brighten with increased frequency, affect is congruent with mood. Patient denies urge to engage in self-injurious behavior. DIAGNOSES: Bipolar disorder, depressed, Posttraumatic stress disorder, Bulimia nervosa, Pica. ASSESSMENT: Patient is engaging with peers in the activity room and attending groups, has been more visible on unit, is more easily engaged. Patient denies all suicidal and homicidal ideation and is able to effectively engage in safety planning process and verbalizes understanding of how to access staff support if needed. Patient reiterates today she would like to discharge to home and to credo and TLS for outpatient services when ready. Patient was encouraged to limit use of benzodiazepine as able. Will continue to monitor patient's response to recent BuSpar dose increase as well as patient's response to rest of medication regimen, will also continue to evaluate need for dosing adjustment to Prozac. Will also continue to monitor patient safety and discharge readiness. MANAGEMENT PLAN: Continue current medication regimen Maintain safety precautions Patient may have bra if it has no underwire Patient to attend groups and participate in unit programming to develop coping strategies Engage patient in discharge planning process and arrange meeting with TLS/ family to evaluate patient's ability to return to TLS living arrangement Patient to follow up with PCM upon discharge Vital Signs/I&O Vital Signs Date Time Temp Pulse Resp B/P Pulse Ox O2 Delivery O2 Flow Rate FiO2 03/28/16 06:02 98.3 95 18 111/64 03/25/16 18:00 Room Air Current Medications Current Medications Acetaminophen (Tylenol) 650 mg Q6HP PRN PO HEADACHE or DISCOMFORT Last administered on 03/23/16 18:21; Start 03/20/16 at 04:30; Stop 04/19/16 at 04:29 Al Hydrox/Mg Hydrox/Simethicone (Mylanta) 30 ml Q4HP PRN PO HEARTBURN/ INDIGESTION; Start 03/20/16 at 04:30; Stop 04/19/16 at 04:29 Bacitracin (Bacitracin Oint) 1 dose BIDP PRN TOP REDNESS/IRRITATION Last administered on 03/23/16 19:18; Start 03/21/16 at 10:45; Stop 04/20/16 at 10:44 Buspirone HCl (Buspar) 10 mg BID NG Last administered on 03/23/16 08:44; Start 03/20/16 at 09:00; Stop 03/23/16 at 14:30; Status DC Buspirone HCl (Buspar) 20 mg BID PO Last administered on 03/28/16 08:53; Start 03/23/16 at 21:00; Stop 04/23/16 at 21:00 Diphtheria/ Tetanus/Acell Pertussis (Adacel/Boostrix) 0.5 ml STK-MED ONCE As Ordered ; Start 03/20/16 at 03:54; Stop 03/20/16 at 03:55; Status DC Divalproex Sodium (Depakote) 500 mg BID PO Last administered on 03/28/16 08:53 ; Start 03/20/16 at 09:00; Stop 04/19/16 at 08:59 Fluoxetine HCl (PROzac) 40 mg DAILY PO Last administered on 03/28/16 08:53; Start 03/20/16 at 09:00; Stop 04/19/16 at 08:59 Gabapentin (Neurontin) 600 mg TID PO Last administered on 03/28/16 08:53; Start 03/20/16 at 09:00; Stop 04/19/16 at 08:59 Haloperidol (Haldol) 5 mg Q4HP PRN PO ANXIETY/AGITATION Last administered on 20:45; Start 03/20/16 at 04:30; Stop 04/19/16 at 04:29 Lorazepam (Ativan) 1 mg Q4HP PRN PO ANXIETY/AGITATION Last administered on 14:00; Start 03/20/16 at 04:30; Stop 04/03/16 at 04:29 Magnesium Hydroxide (Milk Of Magnesia) 30 ml DAILYPRN PRN PO CONSTIPATION; Start 03/20/16 at 04:30; Stop 04/19/16 at 04:29 Miscellaneous (Unresolved Clarification Entry) SEE LABEL COMMENTS UNRESOLVED XX ; Start 03/27/16 at 00:01; Stop 04/26/16 at 00:00 Omeprazole (PriLOSEC) 20 mg DAILY PO ; Start 03/23/16 at 09:00; Stop 03/23/16 at 11:00; Status DC Omeprazole (PriLOSEC) 20 mg DAILY@17 PO Last administered on 03/27/16 16:14; Start 03/23/16 at 17:00; Stop 04/22/16 at 16:59 Trazodone HCl (Desyrel) 50 mg QHSP PRN PO INSOMNIA Last administered on t 20:45; Start 03/20/16 at 04:30; Stop 04/19/16 at 04:29 Allergies Coded Allergies: Hydroxyzine (Verified Adverse Reaction, Intermediate, URINARY RETENTION, ) Adilia Allison Mar 28, 2016 15:15
[2016-03-28] MEDS: OMEPRAZOLE 20 MG CAP PO SCH (16:28)
[2016-03-28 18:00] VITALS: BP 106/60
[2016-03-29 06:30] VITALS: BP 128/64
[2016-03-29] MEDS: GABAPENTIN 300 MG CAP PO SCH ×3 (08:01→20:58)
[2016-03-29] MEDS: DIVALPROEX 500 MG TAB PO SCH ×2 (08:01→20:58)
[2016-03-29] MEDS: busPIRone 10 MG TAB PO SCH ×2 (08:01→20:58)
[2016-03-29] MEDS: FLUoxetine 20 MG CAP PO SCH (08:01)
[2016-03-29] MEDS: OMEPRAZOLE 20 MG CAP PO SCH (16:05)
--- NOTE | 2016-03-29 17:02 | IPNPDOC ---
[facility] Progress Note Progress Note DATE: 03/29/16 HISTORY: Patient was seen today to evaluate treatment progress on the inpatient unit. Patient was observed to be resting in bed between groups, was easily roused and sat up to meet with typewriter tester. Patient reports improved symptoms of anxiety (1/10) and depression (2/10), denies audiovisual hallucinations, states she has experienced no new symptoms of passive SI. Patient denies current urge to engage in SIB, adds when she experienced symptoms last she had no plan or intent. Patient has not needed to use PRN anxiolytic med and today indicates she feels prepared for discharge. Patient states she has been sleeping well, denies nightmares symptoms, feels her current medication regimen is working well and denies medication side effects. However, patient states she is feeling "slightly tired" today, notes she does not feel is medication side effect adding, "I feel good, I don't feel doped up." Patient reports stable appetite, denies challenges with concentration and energy levels. Patient was strongly encouraged to continue to participate in groups on unit to facilitate development of more effective coping mechanisms. Addendum: Approximately 4:45 typewriter tester was informed the patient had presented with "shaking" symptoms during meeting with field logistics coordinator. Broom Worker to evaluate and monitor, nursing has been made aware, new Depakote level ordered for this evening at trough to rule out toxicity and in preparation for discharge. VITAL SIGNS: See below. NEW TEST RESULTS: No new results. Depakote level on 03/20/16 was 112. Depakote level on 03/21/16 was 91.1. EKG on 12/23/15 SR. HCG negative on admission. CURRENT MEDICATIONS: See below. MENTAL STATUS EXAMINATION: Patient appears pleasant and cooperative, personal hygiene continues to improve, she is dressed in hospital clothing and states she showered this morning. Patient makes good eye contact, is engageable, displays no psychomotor agitation, speech is of normal rate, rhythm, volume, she denies suicidal or homicidal ideation, denies audiovisual hallucinations, denies other psychotic symptoms, denies obsessions and compulsions. Patient's thought process is linear, logical, goal-directed and memory appears to be intact. Patient's insight and judgment continue to improve, and she describes her mood as "Good," adds she feels she is repaired for discharge. Patient's affect is constricted but she brightens with increased frequency, affect is congruent with mood. Patient denies urge to engage in self-injurious behavior. DIAGNOSES: Bipolar disorder, depressed, Posttraumatic stress disorder, Bulimia nervosa, Pica. ASSESSMENT: Patient is engaging with peers in the activity room and attending groups, has been more visible on unit, is more easily engaged. Patient denies all suicidal and homicidal ideation and is able to effectively engage in safety planning process and verbalizes understanding of how to access staff support if needed. Patient reiterates today she would like to discharge to [facility] home and to [facility] and follow up with [facility] for outpatient services. Will continue to monitor patient's response to BuSpar dose increase as well as patient's response to rest of medication regimen. Patient denies need for dosing adjustment to Prozac. Will also continue to monitor patient safety and discharge readiness and have requested that meeting be arranged TLS to evaluate patient's ability to return to previous level living arrangement. Meeting with TLS scheduled for . Patient will likely discharge on Sunday and has indicated she is willing to stay with her mother through the holiday to give TLS time to coordinate restart of daily use management contact with patient. MANAGEMENT PLAN: Continue current medication regimen Repeat Depakote level ordered Maintain safety precautions Patient may have bra if it has no underwire Patient to attend groups and participate in unit programming to develop coping strategies Engage patient in discharge planning process and arrange meeting with TLS/ family to evaluate patient's ability to return to [facility] living arrangement Patient to follow up with PCM upon discharge Vital Signs/I&O Vital Signs Date Time Temp Pulse Resp B/P Pulse Ox O2 Delivery O2 Flow Rate FiO2 03/29/16 06:30 97.3 84 19 128/64 03/28/16 18:00 Room Air Current Medications Current Medications Acetaminophen (Tylenol) 650 mg Q6HP PRN PO HEADACHE or DISCOMFORT Last administered on 03/23/16 18:21; Start 03/20/16 at 04:30; Stop 04/19/16 at 04:29 Al Hydrox/Mg Hydrox/Simethicone (Mylanta) 30 ml Q4HP PRN PO HEARTBURN/ INDIGESTION Last administered on 03/29/16 08:44; Start 03/20/16 at 04:30; Stop 04/19/16 at 04:29 Bacitracin (Bacitracin Oint) 1 dose BIDP PRN TOP REDNESS/IRRITATION Last administered on 03/23/16 19:18; Start 03/21/16 at 10:45; Stop 04/20/16 at 10:44 Buspirone HCl (Buspar) 10 mg BID NG Last administered on 03/23/16 08:44; Start 03/20/16 at 09:00; Stop 03/23/16 at 14:30; Status DC Buspirone HCl (Buspar) 20 mg BID PO Last administered on 03/29/16 08:01; Start 03/23/16 at 21:00; Stop 04/23/16 at 21:00 Diphtheria/ Tetanus/Acell Pertussis (Adacel/Boostrix) 0.5 ml STK-MED ONCE As Ordered ; Start 03/20/16 at 03:54; Stop 03/20/16 at 03:55; Status DC Divalproex Sodium (Depakote) 500 mg BID PO Last administered on 03/29/16 08:01 ; Start 03/20/16 at 09:00; Stop 04/19/16 at 08:59 Fluoxetine HCl (PROzac) 40 mg DAILY PO Last administered on 03/29/16 08:01; Start 03/20/16 at 09:00; Stop 04/19/16 at 08:59 Gabapentin (Neurontin) 600 mg TID PO Last administered on 03/29/16 16:05; Start 03/20/16 at 09:00; Stop 04/19/16 at 08:59 Haloperidol (Haldol) 5 mg Q4HP PRN PO ANXIETY/AGITATION Last administered on 20:45; Start 03/20/16 at 04:30; Stop 04/19/16 at 04:29 Lorazepam (Ativan) 1 mg Q4HP PRN PO ANXIETY/AGITATION Last administered on 14:00; Start 03/20/16 at 04:30; Stop 04/03/16 at 04:29 Magnesium Hydroxide (Milk Of Magnesia) 30 ml DAILYPRN PRN PO CONSTIPATION; Start 03/20/16 at 04:30; Stop 04/19/16 at 04:29 Miscellaneous (Unresolved Clarification Entry) SEE LABEL COMMENTS UNRESOLVED XX ; Start 03/27/16 at 00:01; Stop 04/26/16 at 00:00 Omeprazole (PriLOSEC) 20 mg DAILY PO ; Start 03/23/16 at 09:00; Stop 03/23/16 at 11:00; Status DC Omeprazole (PriLOSEC) 20 mg DAILY@17 PO Last administered on 03/29/16t 16:05; Start 03/23/16 at 17:00; Stop 04/22/16 at 16:59 Trazodone HCl (Desyrel) 50 mg QHSP PRN PO INSOMNIA Last administered on t 20:45; Start 03/20/16 at 04:30; Stop 04/19/16 at 04:29 Allergies Coded Allergies: Hydroxyzine (Verified Adverse Reaction, Intermediate, URINARY RETENTION, ) Adilia Allison Mar 29, 2016 17:02
[2016-03-29 18:00] VITALS: BP 115/60
[2016-03-29] MEDS: traZODone 50 MG TAB PO PRN (23:06)
[2016-03-30] MEDS: busPIRone 10 MG TAB PO SCH ×3 (01:55→21:02)
[2016-03-30 06:00] VITALS: BP 101/55
[2016-03-30] MEDS: GABAPENTIN 300 MG CAP PO SCH ×3 (08:15→21:03)
[2016-03-30] MEDS: FLUoxetine 20 MG CAP PO SCH (08:15)
[2016-03-30] MEDS: DIVALPROEX 500 MG TAB PO SCH ×2 (08:15→21:03)
[2016-03-30] MEDS: OMEPRAZOLE 20 MG CAP PO SCH (16:13)
[2016-03-30 18:00] VITALS: BP 99/51
--- NOTE | 2016-03-30 18:50 | IPNPDOC ---
[facility] Progress Note Progress Note DATE OF SERVICE: 03/30/16 HISTORY: Patient was seen today to evaluate treatment progress on the inpatient unit. Patient was observed to be up out of bed, engaging selectively with peers, and waiting to use telephone. Patient denied symptoms of anxiety and depression, denied audiovisual hallucinations, denies suicidal and homicidal ideation, further denies all recent passive suicidal ideation, and denies urge to engage in self-injurious behavior. Patient has not needed to use PRN anxiolytic med since 03/26/16, reiterates today she feels prepared for discharge. Patient states she has been sleeping well, denies nightmares symptoms , feels her current medication regimen is working well and denies medication side effects including fatigue and tremor. Patient reports stable appetite, denies challenges with concentration and energy levels. Patient was encouraged to continue to participate in groups on unit to facilitate development of more effective coping mechanisms. Addendum: In response to report received yesterday the patient was at 4:45 pm "shaking," aligner typewriter went to assess patient who is observed to be in lounge with peers laughing and engaging in a game which required use of hands and movement. Sales Contract Administrator observed no indication of shaking or tremor and no signs of distress. During interaction today, patient denied all medication side effects and again resented with no indication of tremor. Apical level was repeated on 03/29/16 and was 68.6. VITAL SIGNS: See below. NEW TEST RESULTS: No new results. Depakote level on 03/20/16 was 112. Depakote level on 03/21/16 was 91.1. EKG on 12/23/15 SR. HCG negative on admission. CURRENT MEDICATIONS: See below. MENTAL STATUS EXAMINATION: Patient appears pleasant and cooperative, personal hygiene has dramatically improved, she is dressed in hospital clothing and she has showered. Patient is brighter and easily engaged, expresses humor, makes good eye contact, and is easily engaged. Patient displays no psychomotor agitation, speech is of normal rate, rhythm, volume, she denies suicidal or homicidal ideation, denies audiovisual hallucinations, denies other psychotic symptoms, denies obsessions and compulsions. Patient's thought process is linear , logical, goal-directed and memory appears to be intact. Patient's insight and judgment continue to improve, and she describes her mood as "pretty good," adds she feels she is repaired for discharge. Patient's affect is full range and congruent with mood. Patient denies urge to engage in self-injurious behavior. DIAGNOSES: Bipolar disorder, depressed, Posttraumatic stress disorder, Bulimia nervosa, Pica. ASSESSMENT: Patient is engaging with peers in the activity room and attending groups, has remains visible on unit, is more easily engaged. Patient denies all suicidal and homicidal ideation and is able to effectively engage in safety planning process and verbalizes understanding of how to access staff support if needed. Patient reiterates today she would like to discharge to her [facility] home and to [facility] and follow up with [facility] for outpatient services. Due to patient is agreeable to staying with mother in [facility] and will resume regular treatment with TLS and cred[facility] the . Will continue to monitor patient's response to BuSpar dose increase as well as patient's response to rest of medication regimen. Patient denies need for dosing adjustment to Prozac. Patient is aware that meeting with TLS is scheduled for tomorrow morning, after which patient discharge is likely. Patient verbalizes understanding of and agreement with discharge plan. MANAGEMENT PLAN: Continue current medication regimen Repeat Depakote level ordered - completed 03/29/16 68.6 Maintain safety precautions Patient to attend groups and participate in unit programming to develop coping strategies Engage patient in discharge planning process and arrange meeting with TLS/ family to evaluate patient's ability to return to [facility] living arrangement Patient to follow up with PCM upon discharge Vital Signs/I&O Vital Signs Date Time Temp Pulse Resp B/P Pulse Ox O2 Delivery O2 Flow Rate FiO2 03/30/16 06:00 99.1 75 16 101/55 03/28/16 18:00 Room Air Laboratory Data 24H Labs Laboratory Tests 2 03/29/16 19:51: Valproic Acid (Depakene) Level 68.6 Current Medications Current Medications Acetaminophen (Tylenol) 650 mg Q6HP PRN PO HEADACHE or DISCOMFORT Last administered on 03/23/16 18:21; Start 03/20/16 at 04:30; Stop 04/19/16 at 04:29 Al Hydrox/Mg Hydrox/Simethicone (Mylanta) 30 ml Q4HP PRN PO HEARTBURN/ INDIGESTION Last administered on 03/29/16 08:44; Start 03/20/16 at 04:30; Stop 04/19/16 at 04:29 Bacitracin (Bacitracin Oint) 1 dose BIDP PRN TOP REDNESS/IRRITATION Last administered on 03/23/16 19:18; Start 03/21/16 at 10:45; Stop 04/20/16 at 10:44 Buspirone HCl (Buspar) 10 mg BID NG Last administered on 03/23/16 08:44; Start 03/20/16 at 09:00; Stop 03/23/16 at 14:30; Status DC Buspirone HCl (Buspar) 20 mg BID PO Last administered on 03/30/16 08:15; Start 03/23/16 at 21:00; Stop 04/23/16 at 21:00 Diphtheria/ Tetanus/Acell Pertussis (Adacel/Boostrix) 0.5 ml STK-MED ONCE As Ordered ; Start 03/20/16 at 03:54; Stop 03/20/16 at 03:55; Status DC Divalproex Sodium (Depakote) 500 mg BID PO Last administered on 03/30/16 08:15 ; Start 03/20/16 at 09:00; Stop 04/19/16 at 08:59 Fluoxetine HCl (PROzac) 40 mg DAILY PO Last administered on 03/30/16 08:15; Start 03/20/16 at 09:00; Stop 04/19/16 at 08:59 Gabapentin (Neurontin) 600 mg TID PO Last administered on 03/30/16 16:13; Start 03/20/16 at 09:00; Stop 04/19/16 at 08:59 Haloperidol (Haldol) 5 mg Q4HP PRN PO ANXIETY/AGITATION Last administered on 20:45; Start 03/20/16 at 04:30; Stop 04/19/16 at 04:29 Lorazepam (Ativan) 1 mg Q4HP PRN PO ANXIETY/AGITATION Last administered on 14:00; Start 03/20/16 at 04:30; Stop 04/03/16 at 04:29 Magnesium Hydroxide (Milk Of Magnesia) 30 ml DAILYPRN PRN PO CONSTIPATION; Start 03/20/16 at 04:30; Stop 04/19/16 at 04:29 Miscellaneous (Unresolved Clarification Entry) SEE LABEL COMMENTS UNRESOLVED XX ; Start 03/27/16 at 00:01; Stop 03/30/16 at 01:54; Status DC Omeprazole (PriLOSEC) 20 mg DAILY PO ; Start 03/23/16 at 09:00; Stop 03/23/16 at 11:00; Status DC Omeprazole (PriLOSEC) 20 mg DAILY@17 PO Last administered on 03/30/16t 16:13; Start 03/23/16 at 17:00; Stop 04/22/16 at 16:59 Trazodone HCl (Desyrel) 50 mg QHSP PRN PO INSOMNIA Last administered on 23:06; Start 03/20/16 at 04:30; Stop 04/19/16 at 04:29 Allergies Coded Allergies: Hydroxyzine (Verified Adverse Reaction, Intermediate, URINARY RETENTION, ) Adilia Allison Mar 30, 2016 18:50
[2016-03-31] MEDS: ACETAMINOPHEN TAB 650MG DOSE (2X325MG) PO PRN (00:03)
[2016-03-31 06:06] VITALS: BP 128/70
[2016-03-31] MEDS: GABAPENTIN 300 MG CAP PO SCH (08:23)
[2016-03-31] MEDS: FLUoxetine 20 MG CAP PO SCH (08:23)
[2016-03-31] MEDS: DIVALPROEX 500 MG TAB PO SCH (08:23)
[2016-03-31] MEDS: busPIRone 10 MG TAB PO SCH (08:24)
[2016-03-31] MEDS ORDERED: BUSP10TA PO (11:02)
[2016-03-31] MEDS ORDERED: FLUO20CA9 PO (11:02)
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
== END 2016-03-31 11:00 | disposition home or self-care (01) | DRG 753 ==
LOC: M ED 03:06 → M PSY 04:48
PROVIDERS: ADMIT Psychiatry & Neurology Psychiatry; ATTEND Psychiatry & Neurology Psychiatry
DX: F31.9 Bipolar disorder, unspecified (principal); R56.9 Unspecified convulsions; F50.2 Bulimia nervosa; F50.89 Other specified eating disorder; Z79.899 Other long term (current) drug therapy; F43.10 Post-traumatic stress disorder, unspecified; G43.909 Migraine, unspecified, not intractable, without status migrainosus

== ENCOUNTER 2016-04-27 17:09 | Inpatient (IN) | payer OTHER ==
[~2016-04-27] VITALS: Ht 170.2 cm; Wt 77.1 kg
[~2016-04-27 17:09] MED LIST changes: +GABA-283 PO; +PROZ40CA PO
[2016-04-27 18:05] LABS: MEAN CORPUSCULAR HGB CONC 32.9 g/dl (32.0-36.5); MEAN CORPUSCULAR VOLUME 88.2 fl (80.0-96.0); RED CELL DISTRIBUTION WIDTH 12.4 % (11.5-14.5); WHITE BLOOD COUNT 8.7 K/mm3 (4.0-10.0)
[2016-04-27 18:11] LABS: AMPHETAMINES LEVEL URINE NEGATIVE (NEGATIVE)
[2016-04-27 18:12] LABS: BENZODIAZEPINES URINE NEGATIVE (NEGATIVE); COCAINE METABOLITE URINE NEGATIVE (NEGATIVE); CONTROL LINE INT CTR LINE PRESENT; METHADONE URINE NEGATIVE (NEGATIVE); OPIATES URINE NEGATIVE (NEGATIVE); TRICYCLIC ANTIDEPRESS URINE NEGATIVE (NEGATIVE)
[2016-04-27 18:16] LABS: CONTROL LINE HCG INT CTR LINE PRESENT
[2016-04-27 18:29] LABS: ALBUMIN 4.1 GM/DL (3.2-5.2); ALBUMIN/GLOBULIN RATIO 1.21 (1.00-1.93); ALKALINE PHOSPHATASE 57 U/L (45-117); ALT/SGPT 13 U/L (12-78); ANION GAP 10 MEQ/L (8-16); AST/SGOT 16 U/L (15-37); BILIRUBIN,DIRECT < 0.1 MG/DL (0.0-0.2); BILIRUBIN,TOTAL 0.4 MG/DL (0.2-1.0); BLOOD UREA NITROGEN 11 MG/DL (7-18); CALCIUM LEVEL 8.9 MG/DL (8.5-10.1); CARBON DIOXIDE LEVEL 27 MEQ/L (21-32); CHLORIDE LEVEL 106 MEQ/L (98-107); CREATININE FOR GFR 0.91 MG/DL (0.55-1.02); GLOMERULAR FILTRATION RATE > 60.0 (>60); GLUCOSE, FASTING 81 MG/DL (70-105); POTASSIUM SERUM 3.8 MEQ/L (3.5-5.1); SODIUM LEVEL 143 MEQ/L (136-145); TOTAL PROTEIN 7.5 GM/DL (6.4-8.2)
[2016-04-27] MEDS ORDERED: busPIRone 5 MG TAB As Ordered ONE (19:56)
[2016-04-27] MEDS ORDERED: GABAPENTIN 100 MG CAP As Ordered ONE (19:56)
[2016-04-27] MEDS ORDERED: ACETAMINOPHEN 325 MG TAB As Ordered ONE (19:56)
[2016-04-27] MEDS ORDERED: MOM 30ML SUSPENSION UDC PO PRN (21:15)
[2016-04-27] MEDS ORDERED: MAALOX 30 ML SUSP *UDC PO PRN (21:15)
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
--- NOTE | 2016-04-27 22:18 | EDDOCDS ---
Physician Documentation [facility] Name: lElie Santos Age: 25 yrs Sex: Female : 1990 Arrival Date: 04/27/2016 Time: 17:09 Bed [facility] Private MD: Danny Gamez G. Disposition: 04/27/16 21:46 Hospitalization ordered by Vignesh Alba for Inpatient Admission. Preliminary diagnosis is Suicidal ideations. - Bed requested for Admit. - Status is Inpatient Admission. rw1 - Condition is Stable. - Problem is an acute exacerbation. - Symptoms have improved. Historical: - Allergies: bee stings (Anaphylaxis); Hydroxyzine (unable to void); - Home Meds: 1. buspirone 10 mg Oral tab 1 tab 2 times per day 2. Depakote 500 mg Oral TbEC 1 tab 2 times per day 3. omeprazole 20 mg Oral TbEC 20 mg daily 4. gabapentin 600 mg Oral tab 1 tab 3 times per day 5. fluoxetine 40 mg Oral cap 1 cap once daily 6. epi pen prn bee stings 7. Tylenol 325 mg Oral tab 1 tab every 4 hours as needed - PMHx: Anxiety; Bipolar disorder; GERD; Migraine Headaches; PTSD; Seizures; - PSHx: none; - Social history: Smoking status: Patient states was never smoker of tobacco. No barriers to communication noted, The patient speaks fluent Sami. - Family history: Not pertinent. - : The pt / caregiver states he / she is not on anticoagulants. Home medication list is obtained from [employer] import data, patient's med list. - Exposure Risk Screening:: None identified. PAIRING MACHINE OPERATOR: 04/27 17:34 LMP 04/02/2016 kcs Vital Signs: 17:10 BP 153 / 70; Pulse 90; Resp 18 S; Temp 98.6(O); Pulse Ox 96% on R/A; Weight 77.11 kg / gr2 170 lbs (R); Height 5 ft. 7 in. (170.18 cm) (R); Pain 4/10; 21:23 BP 132 / 74; Pulse 84; Resp 16; Temp 97.6(O); Pulse Ox 100% on R/A; Pain 0/10; rw1 17:10 Body Mass Index 26.63 (77.11 kg, 170.18 cm) gr2 MDM: 17:39 Consult PFS/PSA/Park Worker ordered. kcs 17:39 Consult PFS/PSA/Park Worker: Patient's case requires discussion with on-call kcs Psychiatrist ordered. 17:39 PSA/PFS to call Nursing Analyst Programmer, to enter patient data on [place] Safe Act if patient kcs involuntarily admitted or transferred for SI or HI ordered. 17:39 Confirm accurate psychiatric medication list and times of last dosage ordered. kcs 17:39 Detain Pt Until Medically/PFS Cleared ordered. kcs 17:41 REGULAR DIET PED PLASTIC RASHEED+DIET ordered. EDMS 17:41 Acetaminophen Level Ordered. EDMS 17:41 Basic Metabolic Profile Ordered. EDMS 17:41 Complete Blood Count Ordered. EDMS 17:41 Drug Eval Toxicology ED Only Ordered. EDMS 17:41 Ethyl Alcohol (ethanol) Ordered. EDMS 17:41 HCG,Serum Qualitative Ordered. EDMS 17:41 Liver Profile Ordered. EDMS 17:41 Salicylate Level Ordered. EDMS 17:41 Thyroid Stimulating Hormone Ordered. EDMS 18:04 Financial registration complete. gjb 18:10 VALPROIC ACID (DEPAKOTE) Ordered. EDMS 18:10 [facility] Payment Agreement was scanned into [employer] and attached to record. gjb 19:04 Acetaminophen Level Reviewed. ml 19:04 Salicylate Level Reviewed. ml 19:04 VALPROIC ACID (DEPAKOTE) Reviewed. ml 19:04 Basic Metabolic Profile Reviewed. ml 19:04 Complete Blood Count Reviewed. ml 19:04 Drug Eval Toxicology ED Only Reviewed. ml 19:04 Ethyl Alcohol (ethanol) Reviewed. ml 19:04 HCG,Serum Qualitative Reviewed. ml 19:04 Liver Profile Reviewed. ml 19:04 Thyroid Stimulating Hormone Reviewed. ml 19:40 Acetaminophen Tablet 650 mg PO once ordered. mm11 19:46 busPIRone 10 mg PO once ordered. mgs 19:46 Gabapentin 600 mg PO once ordered. mgs 20:14 Consult PFS/PSA/Park Worker complete. ms 20:14 Consult PFS/PSA/Park Worker: Patient's case requires discussion with on-call ms Psychiatrist complete. 20:14 PSA/PFS to call Nursing Analyst Programmer, to enter patient data [place] Safe [place] if patient ms involuntarily admitted or transferred for SI or HI complete. 21:14 Admit to [facility]: ordered. EDMS 21:14 REGULAR DIET ordered. EDMS 21:16 [facility] Legal paperwork was scanned into [employer] and attached to record. jfb Administered Medications: 20:01 Drug: Acetaminophen 650 mg [acetaminophen 325 mg tablet (2 tabs)] Route: PO; rw1 21:39 Follow up: Response: No Adverse Reaction rw1 20:01 Drug: busPIRone 10 mg [buspirone 5 mg tablet (2 tabs)] Route: PO; rw1 21:39 Follow up: Response: No Adverse Reaction rw1 20:01 Drug: Gabapentin 600 mg [gabapentin 100 mg capsule (6 caps)] Route: PO; rw1 21:38 Follow up: Response: No Adverse Reaction rw1 Signatures: Dispatcher [employer] EDMS Magnus Minor MD MD ml Sleeman, Kacey RN RN Sandra Bernal, TRICE PSA ms WernerNader,ROOFING TILE SORTER ROOFING TILE SORTER rw1 Pierre Torres, DO mm11 Zahraa Peterson, PSA PSA Pierre Christopher,RN RN Adrianna Monk The chart was reviewed and I authenticate all verbal orders and agree with the evaluation and treatment provided.Corrections: (The following items were deleted from the chart) 17:39 17:34 PMHx: Cirrhosis; [facility] 18:10 17:45 VALPROIC ACID (DEPAKOTE)+LAB ordered. EDME EDMS Attachments: 18:10 [facility] Payment Agreement jae MTDD
[2016-04-27 22:41] VITALS: BP 121/73
[2016-04-27] MEDS ORDERED: FLUO40CA PO (22:49)
[2016-04-27] MEDS ORDERED: EPIP0.3I2 INJ (22:49)
[2016-04-27] MEDS ORDERED: DIVA500T3 PO (22:49)
[2016-04-27] MEDS ORDERED: GABA600T PO (22:49)
[2016-04-27] MEDS ORDERED: BUSP10TA PO (22:49)
[2016-04-27] MEDS ORDERED: OMEP20CA3 PO (22:49)
[2016-04-27] MEDS ORDERED: EXCETAB80 PO (22:49)
[2016-04-28] MEDS: busPIRone 10 MG TAB PO SCH ×2 (09:32→21:45)
[2016-04-28] MEDS: OMEPRAZOLE 20 MG CAP PO SCH (09:32)
[2016-04-28] MEDS: FLUoxetine 20 MG CAP PO SCH (09:33)
[2016-04-28] MEDS: DIVALPROEX 500 MG TAB PO SCH ×2 (09:33→21:44)
[2016-04-28] MEDS: GABAPENTIN 300 MG CAP PO SCH ×3 (09:33→21:44)
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
[2016-04-28 18:00] VITALS: BP 121/58
[2016-04-28] MEDS: ACETAMINOPHEN TAB 650MG DOSE (2X325MG) PO PRN (18:16)
[2016-04-29 06:19] VITALS: BP 99/55
[2016-04-29] MEDS: FLUoxetine 20 MG CAP PO SCH (08:40)
[2016-04-29] MEDS: DIVALPROEX 500 MG TAB PO SCH ×2 (08:40→20:14)
[2016-04-29] MEDS: OMEPRAZOLE 20 MG CAP PO SCH (08:40)
[2016-04-29] MEDS: busPIRone 10 MG TAB PO SCH ×2 (08:40→20:14)
[2016-04-29] MEDS: GABAPENTIN 300 MG CAP PO SCH ×3 (08:40→20:14)
[2016-04-29 18:35] VITALS: BP 116/56
--- NOTE | 2016-04-29 23:19 | EDDOCDS ---
Physician Documentation [facility] Name: Ellie Santos Age: 25 yrs Sex: Female : 1990 Arrival Date: 04/27/2016 Time: 17:09 Bed [facility] Private MD: Danny Gamez G. Disposition: 04/27/16 21:46 Hospitalization ordered by Vignesh Alba for Inpatient Admission. Preliminary diagnosis is Suicidal ideations. - Bed requested for Admit. - Status is Inpatient Admission. rw1 - Condition is Stable. - Problem is an acute exacerbation. - Symptoms have improved. Historical: - Allergies: bee stings (Anaphylaxis); Hydroxyzine (unable to void); - Home Meds: 1. buspirone 10 mg Oral tab 1 tab 2 times per day 2. Depakote 500 mg Oral TbEC 1 tab 2 times per day 3. omeprazole 20 mg Oral TbEC 20 mg daily 4. gabapentin 600 mg Oral tab 1 tab 3 times per day 5. fluoxetine 40 mg Oral cap 1 cap once daily 6. epi pen prn bee stings 7. Tylenol 325 mg Oral tab 1 tab every 4 hours as needed - PMHx: Anxiety; Bipolar disorder; GERD; Migraine Headaches; PTSD; Seizures; - PSHx: none; - Social history: Smoking status: Patient states was never smoker of tobacco. No barriers to communication noted, The patient speaks fluent Polish. - Family history: Not pertinent. - : The pt / caregiver states he / she is not on anticoagulants. Home medication list is obtained from [employer] import data, patient's med list. - Exposure Risk Screening:: None identified. JEWEL INSERTER: 04/27 17:34 LMP 04/02/2016 kcs Vital Signs: 17:10 BP 153 / 70; Pulse 90; Resp 18 S; Temp 98.6(O); Pulse Ox 96% on R/A; Weight 77.11 kg / gr2 170 lbs (R); Height 5 ft. 7 in. (170.18 cm) (R); Pain 4/10; 21:23 BP 132 / 74; Pulse 84; Resp 16; Temp 97.6(O); Pulse Ox 100% on R/A; Pain 0/10; rw1 17:10 Body Mass Index 26.63 (77.11 kg, 170.18 cm) gr2 MDM: 17:39 Consult PFS/PSA/Tech Ed/Woodshop Teacher ordered. kcs 17:39 Consult PFS/PSA/Tech Ed/Woodshop Teacher: Patient's case requires discussion with on-call kcs Psychiatrist ordered. 17:39 PSA/PFS to call Nursing V[place]oure[employer] Printer, to enter patient data on [place] Safe Act if patient kcs involuntarily admitted or transferred for SI or HI ordered. 17:39 Confirm accurate psychiatric medication list and times of last dosage ordered. kcs 17:39 Detain Pt Until Medically/PFS Cleared ordered. kcs 17:41 REGULAR DIET PED PLASTIC RASHEED+DIET ordered. EDMS 17:41 Acetaminophen Level Ordered. EDMS 17:41 Basic Metabolic Profile Ordered. EDMS 17:41 Complete Blood Count Ordered. EDMS 17:41 Drug Eval Toxicology ED Only Ordered. EDMS 17:41 Ethyl Alcohol (ethanol) Ordered. EDMS 17:41 HCG,Serum Qualitative Ordered. EDMS 17:41 Liver Profile Ordered. EDMS 17:41 Salicylate Level Ordered. EDMS 17:41 Thyroid Stimulating Hormone Ordered. EDMS 18:04 Financial registration complete. gjb 18:10 VALPROIC ACID (DEPAKOTE) Ordered. EDMS 18:10 [facility] Payment Agreement was scanned into [employer] and attached to record. gjb 19:04 Acetaminophen Level Reviewed. ml 19:04 Salicylate Level Reviewed. ml 19:04 VALPROIC ACID (DEPAKOTE) Reviewed. ml 19:04 Basic Metabolic Profile Reviewed. ml 19:04 Complete Blood Count Reviewed. ml 19:04 Drug Eval Toxicology ED Only Reviewed. ml 19:04 Ethyl Alcohol (ethanol) Reviewed. ml 19:04 HCG,Serum Qualitative Reviewed. ml 19:04 Liver Profile Reviewed. ml 19:04 Thyroid Stimulating Hormone Reviewed. ml 19:40 Acetaminophen Tablet 650 mg PO once ordered. mm11 19:46 busPIRone 10 mg PO once ordered. mgs 19:46 Gabapentin 600 mg PO once ordered. mgs 20:14 Consult PFS/PSA/Tech Ed/Woodshop Teacher complete. ms 20:14 Consult PFS/PSA/Tech Ed/Woodshop Teacher: Patient's case requires discussion with on-call ms Psychiatrist complete. 20:14 PSA/PFS to call Nursing V[employer]oure[employer] Printer, to enter patient data [place] Safe [place] if patient ms involuntarily admitted or transferred for SI or HI complete. 21:14 Admit to COUNT INCLUDES THE [facility]: ordered. EDMS 21:14 REGULAR DIET ordered. EDMS 21:16 [facility] Legal paperwork was scanned into [employer] and attached to record. jfb 04/28 12:30 T-Sheet-- Draft Copy was scanned into [employer] and attached to record. gb Administered Medications: 04/27 20:01 Drug: Acetaminophen 650 mg [acetaminophen 325 mg tablet (2 tabs)] Route: PO; rw1 21:39 Follow up: Response: No Adverse Reaction rw1 20:01 Drug: busPIRone 10 mg [buspirone 5 mg tablet (2 tabs)] Route: PO; rw1 21:39 Follow up: Response: No Adverse Reaction rw1 20:01 Drug: Gabapentin 600 mg [gabapentin 100 mg capsule (6 caps)] Route: PO; rw1 21:38 Follow up: Response: No Adverse Reaction rw1 Signatures: Dispatcher [employer] EDMagnus Hurst MD MD ml Sleeman, Kacey, RN RN kcs Avi, Sandra, PSA PSA ms Trinh Horton, Reg Reg gb Nader Caldera,RIVET TESTER RIVET TESTER rw1 Pierre Torres, DO mm11 Zahraa Peterson, PSA PSA jfb Pierre Rodriguez,RN RN s Adrianna Evangelista The chart was reviewed and I authenticate all verbal orders and agree with the evaluation and treatment provided.Corrections: (The following items were deleted from the chart) 17:39 17:34 PMHx: Cirrhosis; gage almonte 18:10 17:45 VALPROIC ACID (DEPAKOTE)+LAB ordered. EDMS EDMS Attachments: 18:10 [facility] [place] [facility] 04/28 12:30 T-Sheet-- Draft Copy gb Chart Complete MTDD
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
--- NOTE | 2016-04-29 23:19 | EDDOCDS ---
Physician Documentation [facility] Name: Ellie Santos Age: 25 yrs Sex: Female : 1990 Arrival Date: 04/27/2016 Time: 17:09 Bed [facility] Private MD: Danny Gamez G. Disposition: 04/27/16 21:46 Hospitalization ordered by Vignesh Alba for Inpatient Admission. Preliminary diagnosis is Suicidal ideations. - Bed requested for Admit. - Status is Inpatient Admission. rw1 - Condition is Stable. - Problem is an acute exacerbation. - Symptoms have improved. Historical: - Allergies: bee stings (Anaphylaxis); Hydroxyzine (unable to void); - Home Meds: 1. buspirone 10 mg Oral tab 1 tab 2 times per day 2. Depakote 500 mg Oral TbEC 1 tab 2 times per day 3. omeprazole 20 mg Oral TbEC 20 mg daily 4. gabapentin 600 mg Oral tab 1 tab 3 times per day 5. fluoxetine 40 mg Oral cap 1 cap once daily 6. epi pen prn bee stings 7. Tylenol 325 mg Oral tab 1 tab every 4 hours as needed - PMHx: Anxiety; Bipolar disorder; GERD; Migraine Headaches; PTSD; Seizures; - PSHx: none; - Social history: Smoking status: Patient states was never smoker of tobacco. No barriers to communication noted, The patient speaks fluent Estonian. - Family history: Not pertinent. - : The pt / caregiver states he / she is not on anticoagulants. Home medication list is obtained from [facility] import data, patient's med list. - Exposure Risk Screening:: None identified. MACHINE STACKER: 04/27 17:34 LMP 04/02/2016 kcs Vital Signs: 17:10 BP 153 / 70; Pulse 90; Resp 18 S; Temp 98.6(O); Pulse Ox 96% on R/A; Weight 77.11 kg / gr2 170 lbs (R); Height 5 ft. 7 in. (170.18 cm) (R); Pain 4/10; 21:23 BP 132 / 74; Pulse 84; Resp 16; Temp 97.6(O); Pulse Ox 100% on R/A; Pain 0/10; rw1 17:10 Body Mass Index 26.63 (77.11 kg, 170.18 cm) gr2 MDM: 17:39 Consult PFS/PSA/Employment Educational Coord ordered. kcs 17:39 Consult PFS/PSA/Employment Educational Coord: Patient's case requires discussion with on-call kcs Psychiatrist ordered. 17:39 PSA/PFS to call Nursing Automotive Lube Technician, to enter patient data on [place] Safe [place] if patient kcs involuntarily admitted or transferred for SI or HI ordered. 17:39 Confirm accurate psychiatric medication list and times of last dosage ordered. kcs 17:39 Detain Pt Until Medically/PFS Cleared ordered. kcs 17:41 REGULAR DIET PED PLASTIC RASHEED+DIET ordered. EDMS 17:41 Acetaminophen Level Ordered. EDMS 17:41 Basic Metabolic Profile Ordered. EDMS 17:41 Complete Blood Count Ordered. EDMS 17:41 Drug Eval Toxicology ED Only Ordered. EDMS 17:41 Ethyl Alcohol (ethanol) Ordered. EDMS 17:41 HCG,Serum Qualitative Ordered. EDMS 17:41 Liver Profile Ordered. EDMS 17:41 Salicylate Level Ordered. EDMS 17:41 Thyroid Stimulating Hormone Ordered. EDMS 18:04 Financial registration complete. gjb 18:10 VALPROIC ACID (DEPAKOTE) Ordered. EDMS 18:10 REPLACED BY [facility] Payment Agreement was scanned into [employer] and attached to record. gjb 19:04 Acetaminophen Level Reviewed. ml 19:04 Salicylate Level Reviewed. ml 19:04 VALPROIC ACID (DEPAKOTE) Reviewed. ml 19:04 Basic Metabolic Profile Reviewed. ml 19:04 Complete Blood Count Reviewed. ml 19:04 Drug Eval Toxicology ED Only Reviewed. ml 19:04 Ethyl Alcohol (ethanol) Reviewed. ml 19:04 HCG,Serum Qualitative Reviewed. ml 19:04 Liver Profile Reviewed. ml 19:04 Thyroid Stimulating Hormone Reviewed. ml 19:40 Acetaminophen Tablet 650 mg PO once ordered. mm11 19:46 busPIRone 10 mg PO once ordered. mgs 19:46 Gabapentin 600 mg PO once ordered. mgs 20:14 Consult PFS/PSA/Employment Educational Coord complete. ms 20:14 Consult PFS/PSA/Employment Educational Coord: Patient's case requires discussion with on-call ms Psychiatrist complete. 20:14 PSA/PFS to call Nursing Automotive Lube Technician, to enter patient data [place] Safe [place] if patient ms involuntarily admitted or transferred for SI or HI complete. 21:14 Admit to [facility]: ordered. EDMS 21:14 REGULAR DIET ordered. EDMS 21:16 MHE Legal paperwork was scanned into [employer] and attached to record. jfb 04/28 12:30 T-Sheet-- Draft Copy was scanned into [employer] and attached to record. gb Administered Medications: 04/27 20:01 Drug: Acetaminophen 650 mg [acetaminophen 325 mg tablet (2 tabs)] Route: PO; rw1 21:39 Follow up: Response: No Adverse Reaction rw1 20:01 Drug: busPIRone 10 mg [buspirone 5 mg tablet (2 tabs)] Route: PO; rw1 21:39 Follow up: Response: No Adverse Reaction rw1 20:01 Drug: Gabapentin 600 mg [gabapentin 100 mg capsule (6 caps)] Route: PO; rw1 21:38 Follow up: Response: No Adverse Reaction rw1 Signatures: Dispatcher [employer] EDMagnus Hurst MD MD ml Sleeman, Kacey, RN RN kcs Avi, Sandra, PSA PSA ms Trinh Horton, Reg Reg gb Nader Caldera,CURATOR OF PHOTOGRAPHY AND PRINTS CURATOR OF PHOTOGRAPHY AND PRINTS rw1 Pierre Torres, DO mm11 Zahraa Peterson, PSA PSA jfb Pierre Rodriguez,RN RN s Adrianna Evangelista The chart was reviewed and I authenticate all verbal orders and agree with the evaluation and treatment provided.Corrections: (The following items were deleted from the chart) 17:39 17:34 PMHx: Cirrhosis; gage almonte 18:10 17:45 VALPROIC ACID (DEPAKOTE)+LAB ordered. EDMS EDMS Attachments: 18:10 ID-[facility] – [place] Payment Agreement [facility] 04/28 12:30 T-Sheet-- Draft Copy gb Chart Complete MTDD
[2016-04-30 06:34] VITALS: BP 119/57
[2016-04-30] MEDS: GABAPENTIN 300 MG CAP PO SCH ×3 (09:34→20:11)
[2016-04-30] MEDS: busPIRone 10 MG TAB PO SCH ×2 (09:34→20:11)
[2016-04-30] MEDS: FLUoxetine 20 MG CAP PO SCH (09:34)
[2016-04-30] MEDS: OMEPRAZOLE 20 MG CAP PO SCH (09:34)
[2016-04-30] MEDS: DIVALPROEX 500 MG TAB PO SCH ×2 (09:35→20:11)
--- NOTE | 2016-04-30 11:59 | IPN ---
DATE: 04/29/2016 CHIEF COMPLAINT: Feels good. SUBJECTIVE: Seen for followup, in the presence of staff. Says feels good, that matters have been well for her, says she feels that she came in on a misunderstanding, and does not need to be here. MENTAL STATUS EXAMINATION: Neat, cooperative, coherent. Affect reactive. Denies any thoughts of harming herself, anyone else. Currently, no evidence of psychosis. Cognition is grossly intact. Judgment is good. Insight fair. ASSESSMENT: Bipolar disorder, current episode depressed. Posttraumatic stress disorder. PLAN: Continue current care and observations, encourage participation in activities in the unit.
[2016-04-30 18:00] VITALS: BP 131/64
[2016-04-30] MEDS: ACETAMINOPHEN TAB 650MG DOSE (2X325MG) PO PRN (20:11)
[2016-05-01 06:19] VITALS: BP 104/61
--- NOTE | 2016-05-01 07:04 | IPN ---
DATE: 04/30/2016 CHIEF COMPLAINT: Says feels good. SUBJECTIVE: Seen for followup, in the presence of staff. Says feels good. No major difficulties at present. Says slept well. MENTAL STATUS EXAMINATION: Neat. Cooperative. No agitation. She is coherent. Affect is reactive, though a bit restricted. Denies any thoughts of harming herself or anyone else. No evidence currently of any psychosis. Judgment and insight fair. ASSESSMENT: Bipolar disorder, current episode depressed. Post traumatic stress disorder. VITAL SIGNS: Blood pressure 119/67. Pulse 76. Temperature 98.9. PLAN: Continue current care and observations.
[2016-05-01] MEDS: FLUoxetine 20 MG CAP PO SCH (08:38)
[2016-05-01] MEDS: OMEPRAZOLE 20 MG CAP PO SCH (08:38)
[2016-05-01] MEDS: GABAPENTIN 300 MG CAP PO SCH ×3 (08:38→20:38)
[2016-05-01] MEDS: DIVALPROEX 500 MG TAB PO SCH ×2 (08:38→20:37)
[2016-05-01] MEDS: busPIRone 10 MG TAB PO SCH ×2 (08:38→20:38)
--- NOTE | 2016-05-01 08:48 | IPNPDOC ---
[facility] Progress Note Progress Note DATE OF SERVICE: 05/01/16 SUBJECTIVE: ========= Patient is calm and cooperative on interview. Patient reports ongoing signficant depression. Patient she reports improved sleep. She denies thoughts of SI and HI today. Patient reports no medication side effects on his current psychotropic regimen. She denies LOJA, CP, ABD pain. She denies N/V/C/D. No bizarre or inappropriate statements or behaviors noted. Patient reports fair sleep and appetite. No behavioral issues on the unit. OBJECTIVE: ========= VITAL SIGNS: wnl. NEW TEST RESULTS: No new results. CURRENT MEDICATIONS: See below. MENTAL STATUS EXAMINATION: Patient is 25-year-old female, Patient presents with fair personal hygiene, is dressed in hospital clothing, makes good eye contact, steady gait, exhibits no psychomotor retardation or agitation today, appears stated age, engaged, calm and cooperative with interview. Speech: Is of normal rate, rhythm, volume, spontaneous, coherent Language skills are intact. Thought processes: Clear, goal-directed Thought content: Rational. Abstract reasoning, and computation: Appears intact Description of associations: Intact. Description of abnormal or psychotic thoughts: Patient denies hallucinations, delusions, preoccupation with violence, homicidal or suicidal ideation, and obsessions]. Judgment: poor Insight: poor Orientation to time, place and person. Recent and remote memory: Immediate, short-term and long-term memory is intact Attention span and concentration: Within normal limits. Language: Normal. Fund of knowledge: Adequate. Mood: depressed Affect: depressed ASSESSMENT: -Bipolar disorder, current episode depressed. -Post traumatic stress disorder. PLAN: ===== -Continue current psychotropic regimen as written. Patient reporting benefit on current regimen. -Maintain safety precautions. -Patient to attend groups and participate in unit programming to develop coping strategies. -Patient encouraged to seek CBT upon discharge. TIME SPENT: 20 minutes Vital Signs Vital Signs Date Time Temp Pulse Resp B/P Pulse Ox O2 Delivery O2 Flow Rate FiO2 05/01/16 06:19 97.4 78 18 104/61 Current Medications Current Medications Acetaminophen (Tylenol Tab) 650 mg Q6HP PRN PO HEADACHE or DISCOMFORT Last administered on 04/30/16t 20:11; Start 04/27/16 at 21:15; Stop 05/27/16 at 21:14 Al Hydrox/Mg Hydrox/Simethicone (Mylanta) 30 ml Q4HP PRN PO HEARTBURN/ INDIGESTION; Start 04/27/16 at 21:15; Stop 05/27/16 at 21:14 Buspirone HCl (Buspar) 20 mg BID PO Last administered on 05/01/16 08:38; Start 04/28/16 at 09:00; Stop 05/28/16 at 08:59 Divalproex Sodium (Depakote) 500 mg BID PO Last administered on 05/01/16 08:38 ; Start 04/28/16 at 09:00; Stop 05/28/16 at 08:59 Fluoxetine HCl (PROzac) 40 mg DAILY PO Last administered on 05/01/16 08:38; Start 04/28/16 at 09:00; Stop 05/28/16 at 08:59 Gabapentin (Neurontin) 600 mg TID@ PO Last administered on 05/01/16 08 :38; Start 04/28/16 at 09:00; Stop 05/28/16 at 08:59 Home Med (Med Rec Complete!) ASDIRECTED XX ; Start 04/27/16 at 23:00; Stop at 23:00; Status DC Magnesium Hydroxide (Milk Of Magnesia) 30 ml DAILYPRN PRN PO CONSTIPATION; Start 04/27/16 at 21:15; Stop 05/27/16 at 21:14 Omeprazole (PriLOSEC) 20 mg DAILY PO Last administered on 05/01/16 08:38; Start 04/28/16 at 09:00; Stop 05/28/16 at 08:59 Trazodone HCl (Desyrel) 50 mg QHSP PRN PO INSOMNIA; Start 04/27/16 at 21:15; Stop 05/27/16 at 21:14 Allergies Coded Allergies: Hydroxyzine (Verified Adverse Reaction, Intermediate, URINARY RETENTION, ) GEORGIANA CUMMINGS MD May 01, 2016 08:48
[2016-05-01 18:00] VITALS: BP 109/60
[2016-05-01] MEDS: traZODone 50 MG TAB PO PRN (21:59)
[2016-05-02 07:14] VITALS: BP 105/50
[2016-05-02] MEDS: FLUoxetine 20 MG CAP PO SCH (08:50)
[2016-05-02] MEDS: GABAPENTIN 300 MG CAP PO SCH ×3 (08:50→21:11)
[2016-05-02] MEDS: busPIRone 10 MG TAB PO SCH ×2 (08:50→21:11)
[2016-05-02] MEDS: OMEPRAZOLE 20 MG CAP PO SCH (08:50)
[2016-05-02] MEDS: DIVALPROEX 500 MG TAB PO SCH ×2 (08:50→21:11)
[2016-05-02] MEDS: ACETAMINOPHEN TAB 650MG DOSE (2X325MG) PO PRN (14:30)
[2016-05-02 18:00] VITALS: BP 114/60
--- NOTE | 2016-05-02 22:55 | IPNPDOC ---
[facility] Progress Note Progress Note DATE OF SERVICE: 05/02/16 HISTORY: Marketing Rotation Associate met with patient today to assess treatment progress on the inpatient unit. Patient presents as calm and cooperative, is easily engaged, and has remained visible on unit participating in unit activities over the weekend. Patient reports anxiety level of 4/10, depression "4.5"/10, denies suicidal and homicidal ideation, denies audiovisual hallucinations, denies urge to engage in self-injurious behavior. Patient spoke openly with play writer today regarding her googling of how to make a noose just prior to hospitalization and states, "I looked it up just to see how to do it I guess, I never had any plan or intent to do it, actually I guess I'm not sure why I looked it up." Patient denies all SIB since prior to last hospitalization, states she feels her depression and anxiety are improving, indicates current medication regimen remains effective, denies need for dosing adjustment, and denies medication side effects. Patient indicates she is sleeping well and denies nightmares symptoms, states energy and concentration levels are within normal limits, indicates appetite is stable. Patient inquires as to discharge planning, informs play writer that [facility] has indicated she may return to independent living level , patient is aware field service coordinator is attempting to set up meeting with [facility] and patient's mother to begin discussing discharge planning. VITAL SIGNS: See below NEW TEST RESULTS: No new results. CURRENT MEDICATIONS: See below. MENTAL STATUS EXAMINATION: Patient is 25-year-old female, Patient presents with adequate personal hygiene, is dressed in hospital clothing, makes good eye contact, steady gait, exhibits no psychomotor retardation or agitation today, appears stated age, engaged, calm and cooperative with interview. Speech: Is of normal rate, rhythm, volume, spontaneous, coherent Language skills are intact. Thought processes: Clear, goal-directed Thought content: Rational. Abstract reasoning, and computation: Appears intact Description of associations: Intact. Description of abnormal or psychotic thoughts: Patient denies hallucinations, delusions, preoccupation with violence, homicidal or suicidal ideation, and obsessions]. Judgment: poor Insight: poor Orientation to time, place and person. Recent and remote memory: Immediate, short-term and long-term memory is intact Attention span and concentration: Within normal limits. Language: Normal. Fund of knowledge: Adequate. Mood: "I feel much better." Patient denies mood lability and none noted Affect: Full range, congruent with mood ASSESSMENT: Patient appears to be adjusting to unit, is participating in activities, indicates medications are effective. Patient denies suicidal and homicidal ideation, and is able to verbalize how to access supportive services on the unit if needed. While patient is able to speak openly about the behavior which led to her current hospitalization, she remains somewhat unable to process the gravity of her googling how to make a noose and comments made to her outpatient psychotherapist. Patient informs play writer she would like to begin discussing discharge planning, is aware field service coordinator is attempting to arrange meeting between patient, patient's mother, and [facility] services. Patient is under the impression that [facility] will allow her to return to independent living level. rehabilitation coordinator has spoken with [facility] who initially indicated they were not comfortable with patient returning to independent level, but are now indicating that patient's return to her apartment may be viable discharge plan. Patient has stated she now has a roommate in her apartment with whom she gets along and feels comfortable. Patient indicates she will continue to participate in case management and outpatient psychotherapy and medication management services through [facility] upon discharge. Will to need to monitor patient's stability on current psychotropic medication regimen, resolution of suicidal ideation, and discharge readiness. DIAGNOSES: Bipolar disorder, current episode depressed, Post traumatic stress disorder. MANAGEMENT PLAN: Continue current medication regimen Maintain safety precautions Patient to attend groups and participate in unit programming to develop coping strategies Engage patient in discharge planning process and arrange meeting with patient's support system to ensure safe discharge planning when appropriate Patient to follow up with PCM upon discharge TIME SPENT: 35 minutes Vital Signs Vital Signs Date Time Temp Pulse Resp B/P Pulse Ox O2 Delivery O2 Flow Rate FiO2 05/02/16 18:00 96.6 70 16 114/60 05/01/16 18:00 Room Air Current Medications Current Medications Acetaminophen (Tylenol Tab) 650 mg Q6HP PRN PO HEADACHE or DISCOMFORT Last administered on 05/02/16t 14:30; Start 04/27/16 at 21:15; Stop 05/27/16 at 21:14 Al Hydrox/Mg Hydrox/Simethicone (Mylanta) 30 ml Q4HP PRN PO HEARTBURN/ INDIGESTION; Start 04/27/16 at 21:15; Stop 05/27/16 at 21:14 Buspirone HCl (Buspar) 20 mg BID PO Last administered on 05/02/16 21:11; Start 04/28/16 at 09:00; Stop 05/28/16 at 08:59 Divalproex Sodium (Depakote) 500 mg BID PO Last administered on 05/02/16 21:11 ; Start 04/28/16 at 09:00; Stop 05/28/16 at 08:59 Fluoxetine HCl (PROzac) 40 mg DAILY PO Last administered on 05/02/16 08:50; Start 04/28/16 at 09:00; Stop 05/28/16 at 08:59 Gabapentin (Neurontin) 600 mg TID@ PO Last administered on 05/02/16 21 :11; Start 04/28/16 at 09:00; Stop 05/28/16 at 08:59 Home Med (Med Rec Complete!) ASDIRECTED XX ; Start 04/27/16 at 23:00; Stop at 23:00; Status DC Magnesium Hydroxide (Milk Of Magnesia) 30 ml DAILYPRN PRN PO CONSTIPATION; Start 04/27/16 at 21:15; Stop 05/27/16 at 21:14 Omeprazole (PriLOSEC) 20 mg DAILY PO Last administered on 05/02/16 08:50; Start 04/28/16 at 09:00; Stop 05/28/16 at 08:59 Trazodone HCl (Desyrel) 50 mg QHSP PRN PO INSOMNIA Last administered on 21:59; Start 04/27/16 at 21:15; Stop 05/27/16 at 21:14 Allergies Coded Allergies: Hydroxyzine (Verified Adverse Reaction, Intermediate, URINARY RETENTION, ) Adilia Allison May 02, 2016 22:55
[2016-05-03 06:43] VITALS: BP 104/51
[2016-05-03] MEDS: FLUoxetine 20 MG CAP PO SCH (09:55)
[2016-05-03] MEDS: GABAPENTIN 300 MG CAP PO SCH ×3 (09:55→20:11)
[2016-05-03] MEDS: DIVALPROEX 500 MG TAB PO SCH ×2 (09:55→20:12)
[2016-05-03] MEDS: OMEPRAZOLE 20 MG CAP PO SCH (09:55)
[2016-05-03] MEDS: busPIRone 10 MG TAB PO SCH ×2 (09:55→20:12)
[2016-05-03] MEDS: ACETAMINOPHEN TAB 650MG DOSE (2X325MG) PO PRN ×2 (10:29→20:12)
[2016-05-03 18:00] VITALS: BP 108/56
--- NOTE | 2016-05-03 18:55 | IPNPDOC ---
[facility] Progress Note Progress Note DATE OF SERVICE: 05/03/16 HISTORY: Reinforcing Steel Placer met with patient today to assess treatment progress on the inpatient unit. Patient was observed to be sleeping in bed, awoke to meet with commercial underwriter, did not sit up but engage with commercial underwriter while lying in bed. Patient presents as calm and cooperative, remains easily engaged, and has remained visible on unit participating in unit activities over the weekend. Patient reports anxiety level of 4/10, depression 4/10, denies suicidal and homicidal ideation, denies audiovisual hallucinations, denies urge to engage in self- injurious behavior. Patient denied fixation on googling nooses and continues to deny all SIB since prior to last hospitalization, states she feels her depression and anxiety continue to improve, indicates current medication regimen remains effective, denies need for dosing adjustment, and denies medication side effects. Patient indicates she is sleeping well and denies nightmares symptoms, states energy and concentration levels remain within normal limits, indicates appetite is stable. Patient verbalizes awareness of family/[facility] meeting scheduled for tomorrow at 1:00 PM to discuss discharge planning. Patient remains hopeful that she may return to independent living level at [facility]. VITAL SIGNS: See below NEW TEST RESULTS: No new results. CURRENT MEDICATIONS: See below. MENTAL STATUS EXAMINATION: Patient is 25-year-old female, Patient presents with adequate personal hygiene, is dressed in hospital clothing, makes good eye contact, steady gait, exhibits no psychomotor retardation or agitation today, appears stated age, engaged, calm and cooperative with interview. Speech: Is of normal rate, rhythm, volume, spontaneous, coherent Language skills are intact. Thought processes: Clear, goal-directed Thought content: Rational. Abstract reasoning, and computation: Appears intact Description of associations: Intact. Description of abnormal or psychotic thoughts: Patient denies hallucinations, delusions, preoccupation with violence, homicidal or suicidal ideation, and obsessions]. Judgment: poor Insight: poor Orientation to time, place and person. Recent and remote memory: Immediate, short-term and long-term memory is intact Attention span and concentration: Within normal limits. Language: Normal. Fund of knowledge: Adequate. Mood: "I feel pretty good." Patient denies mood lability and none noted Affect: Full range, congruent with mood ASSESSMENT: Patient continues to adjust to unit, is participating in groups, and is engaging with staff and peers. Patient denies suicidal and homicidal ideation, and is able to verbalize how to access supportive services on the unit if needed. Patient remains unable to process the gravity of her googling how to make a noose and comments made to her outpatient psychotherapist. recruitment coordinator has spoken with [facility] who initially indicated they were not comfortable with patient returning to independent level, but are now indicating that patient's return to her apartment may be viable discharge plan. Patient reiterates today that she now has a roommate in her apartment with whom she gets along and feels comfortable and feels capable of caring for self on independent level at [facility]. Patient indicates she will continue to participate in case management and outpatient psychotherapy and medication management services through [facility] upon discharge. Will to need to monitor patient's stability on current psychotropic medication regimen, resolution of suicidal ideation, and discharge readiness. DIAGNOSES: Bipolar disorder, current episode depressed, Post traumatic stress disorder. MANAGEMENT PLAN: Continue current medication regimen Maintain safety precautions Patient to attend groups and participate in unit programming to develop coping strategies Engage patient in discharge planning process and arrange meeting with patient's support system to ensure safe discharge planning when appropriate Patient to follow up with PCM upon discharge TIME SPENT: 35 minutes Vital Signs Vital Signs Date Time Temp Pulse Resp B/P Pulse Ox O2 Delivery O2 Flow Rate FiO2 05/03/16 06:43 97.2 69 16 104/51 05/01/16 18:00 Room Air Current Medications Current Medications Acetaminophen (Tylenol Tab) 650 mg Q6HP PRN PO HEADACHE or DISCOMFORT Last administered on 05/03/16 10:29; Start 04/27/16 at 21:15; Stop 05/27/16 at 21:14 Al Hydrox/Mg Hydrox/Simethicone (Mylanta) 30 ml Q4HP PRN PO HEARTBURN/ INDIGESTION; Start 04/27/16 at 21:15; Stop 05/27/16 at 21:14 Buspirone HCl (Buspar) 20 mg BID PO Last administered on 05/03/16 09:55; Start 04/28/16 at 09:00; Stop 05/28/16 at 08:59 Divalproex Sodium (Depakote) 500 mg BID PO Last administered on 05/03/16 09:55 ; Start 04/28/16 at 09:00; Stop 3/12/17 at 08:59 Fluoxetine HCl (PROzac) 40 mg DAILY PO Last administered on 05/03/16 09:55; Start 04/28/16 at 09:00; Stop 05/28/16 at 08:59 Gabapentin (Neurontin) 600 mg TID@,,21 PO Last administered on 05/03/16 17 :50; Start 04/28/16 at 09:00; Stop 05/28/16 at 08:59 Home Med (Med Rec Complete!) ASDIRECTED XX ; Start 04/27/16 at 23:00; Stop at 23:00; Status DC Magnesium Hydroxide (Milk Of Magnesia) 30 ml DAILYPRN PRN PO CONSTIPATION; Start 04/27/16 at 21:15; Stop 05/27/16 at 21:14 Omeprazole (PriLOSEC) 20 mg DAILY PO Last administered on 05/03/16 09:55; Start 04/28/16 at 09:00; Stop 05/28/16 at 08:59 Trazodone HCl (Desyrel) 50 mg QHSP PRN PO INSOMNIA Last administered on 21:59; Start 04/27/16 at 21:15; Stop 05/27/16 at 21:14 Allergies Coded Allergies: Hydroxyzine (Verified Adverse Reaction, Intermediate, URINARY RETENTION, ) Adilia Allison May 03, 2016 18:55
[2016-05-03] MEDS: traZODone 50 MG TAB PO PRN (21:22)
[2016-05-04 07:00] VITALS: BP 99/55
[2016-05-04] MEDS: busPIRone 10 MG TAB PO SCH ×2 (09:32→20:11)
[2016-05-04] MEDS: OMEPRAZOLE 20 MG CAP PO SCH (09:32)
[2016-05-04] MEDS: DIVALPROEX 500 MG TAB PO SCH ×2 (09:32→20:10)
[2016-05-04] MEDS: FLUoxetine 20 MG CAP PO SCH (09:32)
[2016-05-04] MEDS: GABAPENTIN 300 MG CAP PO SCH ×3 (09:32→20:10)
--- NOTE | 2016-05-04 17:55 | IPNPDOC ---
[facility] Progress Note Progress Note DATE OF SERVICE: 05/04/16 HISTORY: Lock Maintenance Supervisor met with patient today to assess treatment progress on the inpatient unit. Patient was observed to up out of bed, visible on unit, interacting well with staff and peers, attending groups. Patient presents as calm and cooperative, remains easily engaged, reports anxiety level of 4/10, depression 3/10, denies suicidal and homicidal ideation, denies audiovisual hallucinations, denies urge to engage in self-injurious behavior. Patient denies interest in noose making and continues to deny all SIB since prior to last hospitalization, states she feels her depression and anxiety continue to improve, indicates current medication regimen remains effective, denies need for dosing adjustment, and denies medication side effects. Lock Maintenance Supervisor discussed medication options with patient who denies interest in medication changes. Patient indicates she is sleeping well with sporadic use of trazodone and denies nightmares symptoms, states energy and concentration levels remain within normal limits, indicates appetite is stable. Addendum: Lock Maintenance Supervisor attended family/TLS meeting today at which [facility] indicated they do not feel comfortable with patient returning to independent living level, will evaluate appropriateness of patient returning to community residence level. Patient and patient's mother are in agreement with plan. VITAL SIGNS: See below NEW TEST RESULTS: No new results. Laboratory results on admission within normal limits Depakote level on 03/29/16 was 68.6 EKG on 12/23/15 was SR HCG negative on admission UDS negative on admission 04/27/16 Depakote level elevated at 118.4, on repeat Depakote level 96.5. Patient is asymptomatic and indicates medication is effective at current dose CURRENT MEDICATIONS: See below. MENTAL STATUS EXAMINATION: Patient is 25-year-old female, Patient presents with adequate personal hygiene, is dressed in hospital clothing, makes good eye contact, steady gait, exhibits no psychomotor retardation or agitation today, appears stated age, engaged, calm and cooperative with interview. Speech: Is of normal rate, rhythm, volume, spontaneous, coherent Language skills are intact. Thought processes: Clear, goal-directed Thought content: Rational. Abstract reasoning, and computation: Appears intact Description of associations: Intact. Description of abnormal or psychotic thoughts: Patient denies hallucinations, delusions, preoccupation with violence, homicidal or suicidal ideation, and obsessions]. Judgment: poor Insight: poor Orientation to time, place and person. Recent and remote memory: Immediate, short-term and long-term memory is intact Attention span and concentration: Within normal limits. Language: Normal. Fund of knowledge: Adequate. Mood: "I feel fine." Patient denies mood lability and none noted Affect: Full range, congruent with mood ASSESSMENT: Patient continues to adjust to unit, is participating in groups, and is engaging with staff and peers. Patient denies suicidal and homicidal ideation, and is able to verbalize how to access supportive services on the unit if needed. Patient continues to minimize events including googling how to make a noose which led to current hospitalization and indicates she does not feel she needs to be in the inpatient setting. TLS has indicated they will evaluate patient's return to the CR level, patient has been informed and is in agreement with plan. Patient reiterates she will continue to participate in case management and outpatient psychotherapy and medication management services through [facility] upon discharge. Will continue to need to monitor patient's stability on current psychotropic medication regimen, resolution of suicidal ideation, and discharge readiness. DIAGNOSES: Bipolar disorder, current episode depressed, Post traumatic stress disorder. MANAGEMENT PLAN: Continue current medication regimen: BuSpar 20 mg p BID, Depakote 500 mg BID (I grade, seizure), gabapentin 600 mg TID (mood, anxiety), Prozac 40 mg q day. Patient has also been utilizing trazodone 50 mg po hs PRN for insomnia Maintain safety precautions Patient to attend groups and participate in unit programming to develop coping strategies Engage patient in discharge planning process and arrange meeting with patient's support system to ensure safe discharge planning when appropriate Patient to follow up with PCM upon discharge TIME SPENT: 35 minutes Vital Signs Vital Signs Date Time Temp Pulse Resp B/P Pulse Ox O2 Delivery O2 Flow Rate FiO2 05/04/16 07:00 96.7 67 16 99/55 05/01/16 18:00 Room Air Current Medications Current Medications Acetaminophen (Tylenol Tab) 650 mg Q6HP PRN PO HEADACHE or DISCOMFORT Last administered on 05/03/16t 20:12; Start 04/27/16 at 21:15; Stop 05/27/16 at 21:14 Al Hydrox/Mg Hydrox/Simethicone (Mylanta) 30 ml Q4HP PRN PO HEARTBURN/ INDIGESTION; Start 04/27/16 at 21:15; Stop 05/27/16 at 21:14 Buspirone HCl (Buspar) 20 mg BID PO Last administered on 05/04/16 09:32; Start 04/28/16 at 09:00; Stop 05/28/16 at 08:59 Divalproex Sodium (Depakote) 500 mg BID PO Last administered on 05/04/16 09:32 ; Start 04/28/16 at 09:00; Stop 05/28/16 at 08:59 Fluoxetine HCl (PROzac) 40 mg DAILY PO Last administered on 05/04/16 09:32; Start 04/28/16 at 09:00; Stop 05/28/16 at 08:59 Gabapentin (Neurontin) 600 mg TID@ PO Last administered on 05/04/16 16 :35; Start 04/28/16 at 09:00; Stop 05/28/16 at 08:59 Home Med (Med Rec Complete!) ASDIRECTED XX ; Start 04/27/16 at 23:00; Stop at 23:00; Status DC Magnesium Hydroxide (Milk Of Magnesia) 30 ml DAILYPRN PRN PO CONSTIPATION; Start 04/27/16 at 21:15; Stop 05/27/16 at 21:14 Omeprazole (PriLOSEC) 20 mg DAILY PO Last administered on 05/04/16 09:32; Start 04/28/16 at 09:00; Stop 05/28/16 at 08:59 Trazodone HCl (Desyrel) 50 mg QHSP PRN PO INSOMNIA Last administered on 21:22; Start 04/27/16 at 21:15; Stop 05/27/16 at 21:14 Allergies Coded Allergies: Hydroxyzine (Verified Adverse Reaction, Intermediate, URINARY RETENTION, ) Adilia Allison May 04, 2016 17:55
[2016-05-04 18:00] VITALS: BP 107/57
[2016-05-05 06:19] VITALS: BP 111/56
[2016-05-05] MEDS: OMEPRAZOLE 20 MG CAP PO SCH (09:06)
[2016-05-05] MEDS: SODIUM CHLORIDE NASAL 0.65% SPRAY BTL (OCEAN) PRN ×3 (09:06→21:16)
[2016-05-05] MEDS: GABAPENTIN 300 MG CAP PO SCH ×3 (09:06→21:18)
[2016-05-05] MEDS: DIVALPROEX 500 MG TAB PO SCH ×2 (09:07→21:18)
[2016-05-05] MEDS: busPIRone 10 MG TAB PO SCH ×2 (09:07→21:18)
[2016-05-05] MEDS: FLUoxetine 20 MG CAP PO SCH (09:07)
--- NOTE | 2016-05-05 16:19 | IPNPDOC ---
[facility] Progress Note Progress Note DATE OF SERVICE: 05/05/16 HISTORY: New Account Interviewer met with patient today to assess treatment progress and inpatient unit. Patient indicated she is not feeling well due to symptoms of head cold, has requested decongestant from nursing in effort to reduce symptoms. Patient and internal communications writer spoke today about recent meeting with TLS, patient verbalizes understanding she will be returning to [facility] on CR level, states she is in agreement with plan and understands reason why she is not returning to independent living level. Patient was able to verbalize alternative coping strategies which she agrees to use if urge to engage in self-injurious behavior or if symptoms of SI return while in CR environment. Patient indicates she feels capable of letting staff know if she begins to decompensate and appears motivated to return to independent living level at [facility] when able. Patient again declines changes to her psychotropic medications, states to internal communications writer, "the last time my psychiatrist may changed my medications I ended up going bonkers and right now I feel pretty good so I'd rather not." Patient denies medication side effects. Patient presents as calm and cooperative, remains easily engaged, today denies symptoms of anxiety and depression, denies suicidal and homicidal ideation, denies audiovisual hallucinations, and denies urge to engage in self- injurious behavior. Patient denies interest in noose making and continues to deny all SIB since prior to last hospitalization, denies impulsivity and indicates her mood is level. Patient indicates she is sleeping well with sporadic use of trazodone and denies nightmares symptoms, states energy and concentration levels remain within normal limits, indicates appetite is stable. VITAL SIGNS: See below NEW TEST RESULTS: No new results. Laboratory results on admission within normal limits Depakote level on 03/29/16 was 68.6 EKG on 12/23/15 was SR HCG negative on admission UDS negative on admission 04/27/16 Depakote level elevated at 118.4, on repeat Depakote level 96.5. Patient is asymptomatic and indicates medication is effective at current dose CURRENT MEDICATIONS: See below. MENTAL STATUS EXAMINATION: Patient is 25-year-old female, Patient presents with adequate personal hygiene, is dressed in hospital clothing, makes good eye contact, ambulates with steady gait, exhibits no psychomotor retardation or agitation today, appears stated age, engaged, calm and cooperative with interview. Speech: Is of normal rate, rhythm, volume, spontaneous, coherent Language skills are intact. Thought processes: Clear, goal-directed Thought content: Rational. Abstract reasoning, and computation: Appears intact Description of associations: Intact. Description of abnormal or psychotic thoughts: Patient denies hallucinations, delusions, preoccupation with violence, homicidal or suicidal ideation, and obsessions]. Judgment: poor, some improvement Insight: poor, some improvement Orientation to time, place and person. Recent and remote memory: Immediate, short-term and long-term memory is intact Attention span and concentration: Within normal limits. Language: Normal. Fund of knowledge: Adequate. Mood: "I'm fine other than my head cold." Patient denies mood lability and none noted Affect: Full range, congruent with mood ASSESSMENT: Patient continues to adjust to unit, is participating in groups, and is engaging with staff and peers. Patient denies suicidal and homicidal ideation, and is able to verbalize how to access supportive services on the unit if needed. Patient continues to minimize events, including googling how to make a noose, which led to current hospitalization, however, is today able to verbalize some insight as to why her therapist acted to have her evaluated for inpatient treatment. Patient continues to indicate she does not feel she needs to be in the inpatient setting. TLS has indicated they will except patient back to the level housing next week and patient has been informed and is in agreement with discharge plan. Patient reiterates she will continue to participate in case management and outpatient psychotherapy and medication management services through [facility] upon discharge. Will continue to need to monitor patient's stability on current psychotropic medication regimen, resolution of suicidal ideation, and discharge readiness. DIAGNOSES: Bipolar disorder, current episode depressed, Post traumatic stress disorder. MANAGEMENT PLAN: Continue current medication regimen: BuSpar 20 mg p BID, Depakote 500 mg BID (migraine, seizure), gabapentin 600 mg TID (mood, anxiety), Prozac 40 mg q day. Patient has also been utilizing trazodone 50 mg po hs PRN for insomnia Maintain safety precautions Patient to attend groups and participate in unit programming to develop coping strategies Engage patient in discharge planning process and arrange meeting with patient's support system to ensure safe discharge planning when appropriate Patient to follow up with PCM upon discharge TIME SPENT: 35 minutes Vital Signs Vital Signs Date Time Temp Pulse Resp B/P Pulse Ox O2 Delivery O2 Flow Rate FiO2 05/05/16 06:19 97.7 75 20 111/56 05/01/16 18:00 Room Air Current Medications Current Medications Acetaminophen (Tylenol Tab) 650 mg Q6HP PRN PO HEADACHE or DISCOMFORT Last administered on 05/03/16 20:12; Start 04/27/16 at 21:15; Stop 05/27/16 at 21:14 Al Hydrox/Mg Hydrox/Simethicone (Mylanta) 30 ml Q4HP PRN PO HEARTBURN/ INDIGESTION; Start 04/27/16 at 21:15; Stop 05/27/16 at 21:14 Buspirone HCl (Buspar) 20 mg BID PO Last administered on 05/05/16 09:07; Start 04/28/16 at 09:00; Stop 05/28/16 at 08:59 Divalproex Sodium (Depakote) 500 mg BID PO Last administered on 05/05/16 09:07 ; Start 04/28/16 at 09:00; Stop 05/28/16 at 08:59 Fluoxetine HCl (PROzac) 40 mg DAILY PO Last administered on 05/05/16 09:07; Start 04/28/16 at 09:00; Stop 05/28/16 at 08:59 Gabapentin (Neurontin) 600 mg TID@ PO Last administered on 05/05/16 09 :06; Start 04/28/16 at 09:00; Stop 05/28/16 at 08:59 Home Med (Med Rec Complete!) ASDIRECTED XX ; Start 04/27/16 at 23:00; Stop at 23:00; Status DC Magnesium Hydroxide (Milk Of Magnesia) 30 ml DAILYPRN PRN PO CONSTIPATION; Start 04/27/16 at 21:15; Stop 05/27/16 at 21:14 Omeprazole (PriLOSEC) 20 mg DAILY PO Last administered on 05/05/16 09:06; Start 04/28/16 at 09:00; Stop 05/28/16 at 08:59 Sodium Chloride ([place] Nasal Delta) 2 spray Q2HP PRN NA NASAL DRYNESS Last administered on 05/05/16 15:30; Start 05/04/16 at 18:30; Stop 06/03/16 at 18:29 Trazodone HCl (Desyrel) 50 mg QHSP PRN PO INSOMNIA Last administered on t 21:22; Start 04/27/16 at 21:15; Stop 05/27/16 at 21:14 Allergies Coded Allergies: Hydroxyzine (Verified Adverse Reaction, Intermediate, URINARY RETENTION, ) Adilia Allison May 05, 2016 16:19
[2016-05-05 18:00] VITALS: BP 122/58
[2016-05-06 06:55] VITALS: BP 110/71
[2016-05-06] MEDS: DIVALPROEX 500 MG TAB PO SCH ×2 (08:06→21:46)
[2016-05-06] MEDS: SODIUM CHLORIDE NASAL 0.65% SPRAY BTL (OCEAN) PRN (08:06)
[2016-05-06] MEDS: busPIRone 10 MG TAB PO SCH ×2 (08:06→21:46)
[2016-05-06] MEDS: FLUoxetine 20 MG CAP PO SCH (08:06)
[2016-05-06] MEDS: OMEPRAZOLE 20 MG CAP PO SCH (08:06)
[2016-05-06] MEDS: GABAPENTIN 300 MG CAP PO SCH ×3 (08:07→21:46)
[2016-05-06 18:00] VITALS: BP 112/55
[2016-05-07] MEDS: ACETAMINOPHEN TAB 650MG DOSE (2X325MG) PO PRN (04:49)
[2016-05-07 06:14] VITALS: BP 117/57
[2016-05-07] MEDS: FLUoxetine 20 MG CAP PO SCH (09:38)
[2016-05-07] MEDS: busPIRone 10 MG TAB PO SCH ×2 (09:38→21:37)
[2016-05-07] MEDS: OMEPRAZOLE 20 MG CAP PO SCH (09:38)
[2016-05-07] MEDS: GABAPENTIN 300 MG CAP PO SCH ×3 (09:38→21:37)
[2016-05-07] MEDS: DIVALPROEX 500 MG TAB PO SCH ×2 (09:39→21:37)
[2016-05-07] MEDS: SODIUM CHLORIDE NASAL 0.65% SPRAY BTL (OCEAN) PRN ×3 (09:41→21:39)
[2016-05-07 18:00] VITALS: BP 116/68
[2016-05-08 06:42] VITALS: BP 107/56
[2016-05-08] MEDS: DIVALPROEX 500 MG TAB PO SCH (08:42)
[2016-05-08] MEDS: FLUoxetine 20 MG CAP PO SCH (08:42)
[2016-05-08] MEDS: OMEPRAZOLE 20 MG CAP PO SCH (08:42)
[2016-05-08] MEDS: GABAPENTIN 300 MG CAP PO SCH ×2 (08:42→16:19)
[2016-05-08] MEDS: busPIRone 10 MG TAB PO SCH (08:43)
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
== END 2016-05-08 17:24 | disposition home or self-care (01) | DRG 753 ==
LOC: M ED 17:09 → M PSY 22:30
PROVIDERS: ADMIT Psychiatry & Neurology Psychiatry; ATTEND Psychiatry & Neurology Psychiatry
DX: F31.9 Bipolar disorder, unspecified (principal); R56.9 Unspecified convulsions; F43.10 Post-traumatic stress disorder, unspecified; K21.9 Gastro-esophageal reflux disease without esophagitis; Z79.899 Other long term (current) drug therapy; G43.909 Migraine, unspecified, not intractable, without status migrainosus

== ENCOUNTER 2016-12-12 15:07 | Emergency (ER) | payer MEDICARE, MEDICAID ==
[~2016-12-12] VITALS: Ht 170.2 cm; Wt 77.3 kg
[~2016-12-12 15:07] MED LIST changes: +EXCETAB80 PO; +FLUO20CA19 PO; -FLUO20CA9 PO; +FLUO40CA PO; +TRAZ50TA11 PO; -TRAZ50TA4 PO
[2016-12-12] MEDS ORDERED: PRAZ2CAP PO (15:22)
[2016-12-12] MEDS ORDERED: MIRT15TA3 PO (15:22)
[2016-12-12] MEDS ORDERED: PANT40TA2 PO (15:22)
[2016-12-12] MEDS ORDERED: FLUO20CA19 (15:22)
[2016-12-12] MEDS ORDERED: KEFL500C17 PO (17:12)
[2016-12-12 17:24] VITALS: BP 111/76
[2017-01-14] MEDS ORDERED: buspar PO (13:46)
[2017-01-14] MEDS ORDERED: FLUO20CA8 PO (13:46)
[2017-01-15] MEDS ORDERED: BUSP10TA PO (01:12)
[2017-01-22] MEDS ORDERED: FERR1TAB8 PO (12:55)
[2017-01-22] MEDS ORDERED: PANT40TA2 PO (13:26)
== END 2016-12-12 17:34 | disposition home or self-care (01) ==
LOC: M ED 15:07
DX: S91.341A Puncture wound with foreign body, right foot, initial encounter (principal); W45.8XXA Other foreign body or object entering through skin, initial encounter; Y92.099 Unspecified place in other non-institutional residence as the place of occurrence of the external cause; Y93.9 Activity, unspecified; Y99.9 Unspecified external cause status; Z79.899 Other long term (current) drug therapy; Z91.030 Bee allergy status; Z88.8 Allergy status to other drugs, medicaments and biological substances

== ENCOUNTER → 2017-03-07 | Outpatient (REF) | payer MEDICARE, MEDICAID ==
[~2017-03-07] MED LIST changes: +FERR1TAB8 PO; +FLUO20CA19; +KEFL500C17 PO; +MIRT15TA3 PO; +PANT40TA2 PO; +PRAZ2CAP PO; +buspar PO
[2017-03-07 19:17] LABS: ALBUMIN 4.1 GM/DL (3.2-5.2); ALBUMIN/GLOBULIN RATIO 1.24 (1.00-1.93); ALKALINE PHOSPHATASE 66 U/L (45-117); ALT/SGPT 20 U/L (12-78); ANION GAP 7 MEQ/L (8-16); AST/SGOT 19 U/L (7-37); BASO % 0.5 % (0.0-1.0); BILIRUBIN,TOTAL 0.4 MG/DL (0.2-1.0); BLOOD UREA NITROGEN 8 MG/DL (7-18); CALCIUM LEVEL 8.9 MG/DL (8.5-10.1); CARBON DIOXIDE LEVEL 27 MEQ/L (21-32); CHLORIDE LEVEL 107 MEQ/L (98-107); CREATININE FOR GFR 0.86 MG/DL (0.55-1.02); EOS # 0.1 10^3/uL (0.0-0.50); EOS % 1.8 % (0.0-3.0); GLOMERULAR FILTRATION RATE > 60.0 (>60); GLUCOSE, FASTING 78 MG/DL (70-105); IMMATURE GRANULOCYTE % 0.3 % (0-0); LYMPH % 32.3 % (24.0-44.0); MEAN CORPUSCULAR HEMOGLOBIN 25.5 pg (27.0-33.0); MEAN CORPUSCULAR HGB CONC 31.7 g/dl (32.0-36.5); MEAN CORPUSCULAR VOLUME 80.3 fl (80.0-96.0); MONO # 0.4 10^3/uL (0.0-0.8); MONO % 6.5 % (0.0-5.0); NEUTROPHILS # 3.6 10^3/uL (1.8-7.7); NEUTROPHILS % 58.6 % (36.0-66.0); PLATELET COUNT, AUTOMATED 283 10^3/uL (150-450); RED CELL DISTRIBUTION WIDTH 22.8 % (11.5-14.5); SODIUM LEVEL 141 MEQ/L (136-145); TOTAL PROTEIN 7.4 GM/DL (6.4-8.2); WHITE BLOOD COUNT 6.2 10^3/uL (4.0-10.0)
== END ==
LOC: M LAB REF 17:55
PROVIDERS: ATTEND Nurse Practitioner Adult Health
DX: E66.09 Other obesity due to excess calories (principal); D64.9 Anemia, unspecified

== ENCOUNTER 2017-03-27 21:04 | Inpatient (IN) | payer MEDICARE, MEDICAID ==
[2017-03-27] MEDS: NS 1,000 ML IV (21:20)
[2017-03-27 21:27] LABS: HEMATOCRIT 41.4 % (36.0-47.0); HEMOGLOBIN 13.6 g/dl (12.0-16.0); MEAN CORPUSCULAR HEMOGLOBIN 26.6 pg (27.0-33.0); MEAN CORPUSCULAR HGB CONC 32.9 g/dl (32.0-36.5); PLATELET COUNT, AUTOMATED 240 10^3/uL (150-450); RED BLOOD COUNT 5.11 10^6/uL (4.00-5.40); RED CELL DISTRIBUTION WIDTH 19.8 % (11.5-14.5); WHITE BLOOD COUNT 12.4 10^3/uL (4.0-10.0)
[2017-03-27] MEDS: CHARCOAL ACTIVATED LIQUID 25 GM/120 ML BTL PO (21:30)
[2017-03-27] MEDS ORDERED: ONDANSETRON 4MG/2ML VIAL (J2405) As Ordered (21:35)
[2017-03-27 21:47] LABS: INR 0.98; PROTHROMBIN TIME 13.1 SECONDS (12.4-14.5)
[2017-03-27] MEDS: ONDANSETRON 4MG/2ML VIAL (J2405) IV (21:54)
[2017-03-27 22:02] LABS: AMPHETAMINES LEVEL URINE NEGATIVE (NEGATIVE); BARBITURATES URINE NEGATIVE (NEGATIVE); BENZODIAZEPINES URINE NEGATIVE (NEGATIVE); CANNABINOIDS URINE NEGATIVE (NEGATIVE); COCAINE METABOLITE URINE NEGATIVE (NEGATIVE); METHADONE URINE NEGATIVE (NEGATIVE); OPIATES URINE NEGATIVE (NEGATIVE); PHENCYCLIDINE URINE NEGATIVE (NEGATIVE)
[2017-03-27 22:03] LABS: ALBUMIN 3.7 GM/DL (3.2-5.2); ALBUMIN/GLOBULIN RATIO 1.09 (1.00-1.93); ALKALINE PHOSPHATASE 80 U/L (45-117); ALT/SGPT 25 U/L (12-78); ANION GAP 10 MEQ/L (8-16); AST/SGOT 23 U/L (7-37); BILIRUBIN,DIRECT < 0.1 MG/DL (0.0-0.2); BILIRUBIN,TOTAL < 0.1 MG/DL (0.2-1.0); BLOOD UREA NITROGEN 3 MG/DL (7-18); CALCIUM LEVEL 9.2 MG/DL (8.5-10.1); CARBON DIOXIDE LEVEL 24 MEQ/L (21-32); CHLORIDE LEVEL 108 MEQ/L (98-107); CREATININE FOR GFR 0.93 MG/DL (0.55-1.02); ETHYL ALCOHOL (ETHANOL) 0.012 % (0.000-0.010); GLOMERULAR FILTRATION RATE > 60.0 (>60); GLUCOSE, FASTING 154 MG/DL (70-105); POTASSIUM SERUM 3.3 MEQ/L (3.5-5.1); SALICYLATE LEVEL 35.7 MG/DL (5.0-30.0); SODIUM LEVEL 142 MEQ/L (136-145); THYROID STIMULATING HORMONE 0.797 uIU/ML (0.358-3.740); TOTAL PROTEIN 7.1 GM/DL (6.4-8.2)
[2017-03-27 22:07] LABS: ACETAMINOPHEN LEVEL < 2.0 UG/ML (10.0-30.0)
[2017-03-27 22:09] LABS: VENOUS BASE EXCESS -1.5 (-2.0-2.0); VENOUS HCO3 22.5 MEQ/L (23.0-27.0); VENOUS O2 SATURATION 93.1 % (60.0-80.0); VENOUS PARTIAL PRESSURE O2 64.1 mmHg (30.0-50.0); VENOUS PH 7.414 UNITS (7.330-7.430); VENOUS STANDARD HCO3 23.1 MEQ/L; VENOUS TOTAL CO2 23.6 MEQ/L (24.0-28.0)
[2017-03-27 22:16] LABS: CONTROL LINE HCG INT CTR LINE PRESENT; HCG, SERUM QUALITATIVE NEGATIVE (NEGATIVE)
[2017-03-27 22:18] LABS: LACTIC ACID SEPSIS PROTOCOL 2.7 MMOL/L (0.4-2.0)
[2017-03-27] MEDS: KCL 10MEQ IN 100ML SWI (KRUN) 10 MEQ in APPROPRIATE DILUENT 1 EA IV (22:30)
[2017-03-27] MEDS: SODIUM BICARBONATE 150 MEQ in D5W 1,000 ML IV (22:52)
[2017-03-27] MEDS: SODIUM BICARBONATE 8.4% INJ 50 ML SYRINGE IV (22:58)
[2017-03-27 23:51] LABS: SALICYLATE LEVEL 33.3 MG/DL (5.0-30.0)
[2017-03-28] MEDS: NS 1,000 ML IV ×2 (01:22→08:10)
[2017-03-28 01:51] LABS: SALICYLATE LEVEL 30.9 MG/DL (5.0-30.0)
[2017-03-28] MEDS: SODIUM BICARBONATE 150 MEQ in D5W 1,000 ML IV (04:06)
[2017-03-28 07:55] LABS: BASO # 0.1 10^3/uL (0.0-0.2); BASO % 0.6 % (0.0-1.0); EOS # 0.1 10^3/uL (0.0-0.50); EOS % 1.4 % (0.0-3.0); HEMATOCRIT 37.3 % (36.0-47.0); HEMOGLOBIN 12.2 g/dl (12.0-16.0); IMMATURE GRANULOCYTE % 0.3 % (0-0); LYMPH # 2.6 10^3/uL (1.5-6.5); LYMPH % 32.9 % (24.0-44.0); MEAN CORPUSCULAR HEMOGLOBIN 26.5 pg (27.0-33.0); MEAN CORPUSCULAR HGB CONC 32.7 g/dl (32.0-36.5); MEAN CORPUSCULAR VOLUME 80.9 fl (80.0-96.0); MONO # 0.6 10^3/uL (0.0-0.8); MONO % 7.4 % (0.0-5.0); NEUTROPHILS # 4.4 10^3/uL (1.8-7.7); NEUTROPHILS % 57.4 % (36.0-66.0); PLATELET COUNT, AUTOMATED 212 10^3/uL (150-450); RED BLOOD COUNT 4.61 10^6/uL (4.00-5.40); RED CELL DISTRIBUTION WIDTH 19.9 % (11.5-14.5); WHITE BLOOD COUNT 7.7 10^3/uL (4.0-10.0)
[2017-03-28 08:06] LABS: SALICYLATE LEVEL 18.1 MG/DL (5.0-30.0)
[2017-03-28 08:11] LABS: LACTIC ACID SEPSIS PROTOCOL 1.9 MMOL/L (0.4-2.0)
[2017-03-28 08:11] LABS: ALKALINE PHOSPHATASE 59 U/L (45-117); ALT/SGPT 20 U/L (12-78); ANION GAP 9 MEQ/L (8-16); AST/SGOT 19 U/L (7-37); BILIRUBIN,TOTAL 0.1 MG/DL (0.2-1.0); BLOOD UREA NITROGEN 2 MG/DL (7-18); CARBON DIOXIDE LEVEL 30 MEQ/L (21-32); CHLORIDE LEVEL 107 MEQ/L (98-107); CREATININE FOR GFR 0.89 MG/DL (0.55-1.02); GLOMERULAR FILTRATION RATE > 60.0 (>60); GLUCOSE, FASTING 94 MG/DL (70-105); SODIUM LEVEL 146 MEQ/L (136-145)
[2017-03-28 08:23] LABS: CALCIUM LEVEL 7.4 MG/DL (8.5-10.1); POTASSIUM SERUM 2.8 MEQ/L (3.5-5.1)
[2017-03-28] MEDS ORDERED: KCL 10MEQ IN 100ML SWI (KRUN) 10 MEQ in APPROPRIATE DILUENT 1 EA IV (09:15)
[2017-03-28] MEDS: ONDANSETRON 4MG/2ML VIAL (J2405) IV (09:22)
[2017-03-28] MEDS: KCL 40MEQ in NS 1000ML 1,000 ML IV (09:30)
[2017-03-28] MEDS ORDERED: ONDANSETRON 4MG/2ML VIAL (J2405) IV (09:30)
[2017-03-28 09:37] LABS: ABG BASE EXCESS 5.2 (-2.0-2.0); ABG HCO3 29.4 MEQ/L (22.0-26.0); ABG O2 SATURATION 97.7 % (95.0-99.0); ABG PARTIAL PRESSURE CO2 41.6 mmHg (35.0-45.0); ABG PARTIAL PRESSURE O2 95.1 mmHg (75.0-100.0); ABG STANDARD HCO3 29.2 MEQ/L (22.0-26.0); ABG TOTAL CO2 30.7 MEQ/L (22.0-29.0); ABG pH (ARTERIAL) 7.467 UNITS (7.350-7.450)
[2017-03-28] MEDS: POTASSIUM CHLORIDE 10% LIQ 20 MEQ/15 ML UDC PO (10:43)
[2017-03-28] MEDS: GABAPENTIN 300 MG CAP PO (11:41)
[2017-03-28] MEDS: busPIRone 10 MG TAB PO (11:41)
[2017-03-28] MEDS: FERROUS SULFATE 325MG TAB PO (11:42)
[2017-03-28] MEDS: FLUoxetine 20 MG CAP PO (11:42)
[2017-03-28] MEDS: PANTOPRAZOLE 40MG TAB (PROTONIX) PO (11:43)
[2017-03-28 14:00] LABS: SALICYLATE LEVEL 6.8 MG/DL (5.0-30.0)
[2017-03-28 15:24] LABS: POTASSIUM SERUM 3.8 MEQ/L (3.5-5.1)
[2017-03-28] MEDS ORDERED: diphenhydrAMINE 25 MG CAP PO (17:30)
[2017-03-28 20:50] LABS: CONTROL LINE UCG INT CTR LINE PRESENT; URINE PREG TEST NEGATIVE (NEGATIVE)
[2017-03-28] MEDS ORDERED: MIRTAZAPINE 7.5MG PER 1/2 TABLET PO (21:00)
[2017-03-28] MEDS ORDERED: PRAZOSIN 1 MG CAP PO (21:00)
[2017-03-29] MEDS ORDERED: VENLAFAXINE **XR** 37.5 MG CAPSULE PO (09:00)
== END 2017-03-28 18:45 | DRG 918 ==
LOC: M ED INP 03-28 04:25 → M ED 21:04
DX: T39.092A Poisoning by salicylates, intentional self-harm, initial encounter (principal); T45.0X2A Poisoning by antiallergic and antiemetic drugs, intentional self-harm, initial encounter; F43.10 Post-traumatic stress disorder, unspecified; F41.9 Anxiety disorder, unspecified; F32.9 Major depressive disorder, single episode, unspecified; Z79.899 Other long term (current) drug therapy; K21.9 Gastro-esophageal reflux disease without esophagitis; G43.909 Migraine, unspecified, not intractable, without status migrainosus; Z91.038 Other insect allergy status; F50.9 Eating disorder, unspecified; X83.8XXA Intentional self-harm by other specified means, initial encounter; Y92.009 Unspecified place in unspecified non-institutional (private) residence as the place of occurrence of the external cause

== ENCOUNTER 2017-03-28 18:46 | Inpatient (IN) | payer MEDICARE, MEDICAID ==
[2017-03-29] MEDS ORDERED: diphenhydrAMINE 25 MG CAP PO (06:45)
[2017-03-29] MEDS ORDERED: MUPIROCIN 2% OINT 22 GM TUBE TOP (09:15)
[2017-03-29] MEDS: FERROUS SULFATE 325MG TAB PO ×2 (09:18→20:29)
[2017-03-29] MEDS: VENLAFAXINE **XR** 37.5 MG CAPSULE PO (09:19)
[2017-03-29] MEDS: PANTOPRAZOLE 40MG TAB (PROTONIX) PO (09:19)
[2017-03-29 10:11] LABS: HEMATOCRIT 38.7 % (36.0-47.0); HEMOGLOBIN 12.3 g/dl (12.0-16.0); MEAN CORPUSCULAR HEMOGLOBIN 26.3 pg (27.0-33.0); MEAN CORPUSCULAR HGB CONC 31.8 g/dl (32.0-36.5); MEAN CORPUSCULAR VOLUME 82.7 fl (80.0-96.0); PLATELET COUNT, AUTOMATED 210 10^3/uL (150-450); RED BLOOD COUNT 4.68 10^6/uL (4.00-5.40); RED CELL DISTRIBUTION WIDTH 19.8 % (11.5-14.5); WHITE BLOOD COUNT 5.4 10^3/uL (4.0-10.0)
[2017-03-29 10:36] LABS: FOLATE 9.9 NG/ML (>5.4); VITAMIN B12 LEVEL 291 PG/ML (247-911)
[2017-03-29 10:43] LABS: ALBUMIN 3.5 GM/DL (3.2-5.2); ALKALINE PHOSPHATASE 64 U/L (45-117); ALT/SGPT 26 U/L (12-78); ANION GAP 7 MEQ/L (8-16); AST/SGOT 21 U/L (7-37); BILIRUBIN,TOTAL 0.3 MG/DL (0.2-1.0); BLOOD UREA NITROGEN 4 MG/DL (7-18); CALCIUM LEVEL 8.7 MG/DL (8.5-10.1); CARBON DIOXIDE LEVEL 27 MEQ/L (21-32); CHLORIDE LEVEL 109 MEQ/L (98-107); CREATININE FOR GFR 0.73 MG/DL (0.55-1.02); FERRITIN 24 NG/ML (8-252); GLOMERULAR FILTRATION RATE > 60.0 (>60); GLUCOSE, FASTING 83 MG/DL (70-105); IRON (FE) 89 UG/DL (50-170); PERCENT SATURATION 29.9 % (13.2-45.0); POTASSIUM SERUM 4.4 MEQ/L (3.5-5.1); SODIUM LEVEL 143 MEQ/L (136-145); TOTAL IRON BINDING CAPACITY 298 UG/DL (250-450); TOTAL PROTEIN 6.2 GM/DL (6.4-8.2)
[2017-03-29] MEDS: MIRTAZAPINE 7.5MG PER 1/2 TABLET PO (20:29)
[2017-03-29] MEDS ORDERED: traZODone 50 MG TAB PO (21:00)
[2017-03-29] MEDS ORDERED: MAALOX 30 ML SUSP *UDC PO (21:00)
[2017-03-29] MEDS: ACETAMINOPHEN TAB 650MG DOSE (2X325MG) PO (21:00)
[2017-03-30] MEDS: VENLAFAXINE **XR** 37.5 MG CAPSULE PO (08:19)
[2017-03-30] MEDS: FERROUS SULFATE 325MG TAB PO ×2 (08:20→20:59)
[2017-03-30] MEDS: PANTOPRAZOLE 40MG TAB (PROTONIX) PO (08:20)
[2017-03-30 14:27] LABS: ALBUMIN/GLOBULIN RATIO 1.21 (1.00-1.93); ALKALINE PHOSPHATASE 70 U/L (45-117); ALT/SGPT 28 U/L (12-78); ANION GAP 9 MEQ/L (8-16); AST/SGOT 19 U/L (7-37); BILIRUBIN,DIRECT < 0.1 MG/DL (0.0-0.2); BILIRUBIN,TOTAL 0.4 MG/DL (0.2-1.0); BLOOD UREA NITROGEN 11 MG/DL (7-18); CALCIUM LEVEL 9.3 MG/DL (8.5-10.1); CARBON DIOXIDE LEVEL 29 MEQ/L (21-32); CHLORIDE LEVEL 105 MEQ/L (98-107); CREATININE FOR GFR 0.79 MG/DL (0.55-1.02); GLOMERULAR FILTRATION RATE > 60.0 (>60); GLUCOSE, FASTING 95 MG/DL (70-105); POTASSIUM SERUM 4.3 MEQ/L (3.5-5.1); SODIUM LEVEL 143 MEQ/L (136-145); TOTAL PROTEIN 7.3 GM/DL (6.4-8.2)
[2017-03-30] MEDS: MIRTAZAPINE 7.5MG PER 1/2 TABLET PO (20:59)
[2017-03-31] MEDS: VENLAFAXINE **XR** 75MG CAPSULE PO (08:46)
[2017-03-31] MEDS: PANTOPRAZOLE 40MG TAB (PROTONIX) PO (08:46)
[2017-03-31] MEDS: FERROUS SULFATE 325MG TAB PO ×2 (08:46→21:13)
[2017-03-31] MEDS: MIRTAZAPINE 7.5MG PER 1/2 TABLET PO (21:12)
[2017-04-01] MEDS: PANTOPRAZOLE 40MG TAB (PROTONIX) PO (08:44)
[2017-04-01] MEDS: FERROUS SULFATE 325MG TAB PO ×2 (08:44→21:38)
[2017-04-01] MEDS: VENLAFAXINE **XR** 75MG CAPSULE PO (08:44)
[2017-04-01] MEDS: MOM 30ML SUSPENSION UDC PO (10:20)
[2017-04-01] MEDS: MIRTAZAPINE 7.5MG PER 1/2 TABLET PO (21:39)
[2017-04-01] MEDS: PRAZOSIN 1 MG CAP PO (21:39)
[2017-04-02] MEDS: PANTOPRAZOLE 40MG TAB (PROTONIX) PO (09:16)
[2017-04-02] MEDS: VENLAFAXINE **XR** 75MG CAPSULE PO (09:16)
[2017-04-02] MEDS: FERROUS SULFATE 325MG TAB PO ×2 (09:16→21:37)
[2017-04-02] MEDS: PRAZOSIN 1 MG CAP PO (21:37)
[2017-04-02] MEDS: MIRTAZAPINE 7.5MG PER 1/2 TABLET PO (21:37)
[2017-04-03] MEDS: FERROUS SULFATE 325MG TAB PO (08:57)
[2017-04-03] MEDS: VENLAFAXINE **XR** 75MG CAPSULE PO (08:57)
[2017-04-03] MEDS: PANTOPRAZOLE 40MG TAB (PROTONIX) PO (08:57)
== END 2017-04-03 11:02 | disposition home or self-care (01) | DRG 885 ==
LOC: M PSY 18:46
DX: F33.2 Major depressive disorder, recurrent severe without psychotic features (principal); F60.3 Borderline personality disorder; Z79.899 Other long term (current) drug therapy; Z91.038 Other insect allergy status; Z88.8 Allergy status to other drugs, medicaments and biological substances; K21.9 Gastro-esophageal reflux disease without esophagitis; G40.909 Epilepsy, unspecified, not intractable, without status epilepticus; F50.9 Eating disorder, unspecified; D50.9 Iron deficiency anemia, unspecified

== ENCOUNTER 2017-06-26 14:04 | Inpatient (IN) | payer MEDICARE, MEDICAID ==
[2017-06-26] MEDS: LORazepam 0.5 MG TAB PO (15:05)
[2017-06-26 15:08] LABS: HEMATOCRIT 41.5 % (36.0-47.0); MEAN CORPUSCULAR HEMOGLOBIN 28.9 pg (27.0-33.0); MEAN CORPUSCULAR HGB CONC 33.7 g/dl (32.0-36.5); MEAN CORPUSCULAR VOLUME 85.6 fl (80.0-96.0); PLATELET COUNT, AUTOMATED 250 10^3/uL (150-450); RED BLOOD COUNT 4.85 10^6/uL (4.00-5.40); RED CELL DISTRIBUTION WIDTH 12.8 % (11.5-14.5); WHITE BLOOD COUNT 7.1 10^3/uL (4.0-10.0)
[2017-06-26 15:29] LABS: CONTROL LINE HCG INT CTR LINE PRESENT; HCG, SERUM QUALITATIVE NEGATIVE (NEGATIVE)
[2017-06-26 15:30] LABS: AMPHETAMINES LEVEL URINE NEGATIVE (NEGATIVE); BARBITURATES URINE NEGATIVE (NEGATIVE); BENZODIAZEPINES URINE NEGATIVE (NEGATIVE); CANNABINOIDS URINE NEGATIVE (NEGATIVE); COCAINE METABOLITE URINE NEGATIVE (NEGATIVE); METHADONE URINE NEGATIVE (NEGATIVE); OPIATES URINE NEGATIVE (NEGATIVE); PHENCYCLIDINE URINE NEGATIVE (NEGATIVE)
[2017-06-26 15:46] LABS: ACETAMINOPHEN LEVEL < 2.0 UG/ML (10.0-30.0); ALBUMIN 4.2 GM/DL (3.2-5.2); ALKALINE PHOSPHATASE 82 U/L (45-117); ALT/SGPT 20 U/L (12-78); ANION GAP 9 MEQ/L (8-16); AST/SGOT 19 U/L (7-37); BILIRUBIN,DIRECT 0.1 MG/DL (0.0-0.2); BILIRUBIN,TOTAL 0.4 MG/DL (0.2-1.0); BLOOD UREA NITROGEN 17 MG/DL (7-18); CALCIUM LEVEL 8.7 MG/DL (8.5-10.1); CARBON DIOXIDE LEVEL 24 MEQ/L (21-32); CHLORIDE LEVEL 107 MEQ/L (98-107); CREATININE FOR GFR 0.75 MG/DL (0.55-1.30); GLOMERULAR FILTRATION RATE > 60.0 (>60); GLUCOSE, FASTING 90 MG/DL (70-100); POTASSIUM SERUM 3.8 MEQ/L (3.5-5.1); SALICYLATE LEVEL < 1.7 MG/DL (5.0-30.0); SODIUM LEVEL 140 MEQ/L (136-145); THYROID STIMULATING HORMONE 0.902 uIU/ML (0.358-3.740); TOTAL PROTEIN 7.7 GM/DL (6.4-8.2)
[2017-06-26 15:50] LABS: ETHYL ALCOHOL (ETHANOL) < 0.003 % (0.000-0.010)
[2017-06-26] MEDS ORDERED: MOM 30ML SUSPENSION UDC PO (18:15)
[2017-06-26] MEDS ORDERED: MAALOX 30 ML SUSP *UDC PO (18:15)
[2017-06-26] MEDS: traZODone 50 MG TAB PO (23:32)
[2017-06-27] MEDS: PANTOPRAZOLE 40MG TAB (PROTONIX) PO (10:07)
[2017-06-27] MEDS: FERROUS SULFATE 325MG TAB PO (10:07)
[2017-06-27] MEDS ORDERED: PROPRANOLOL 10 MG TAB PO (11:00)
[2017-06-27 11:41] LABS: MAGNESIUM LEVEL 2.6 MG/DL (1.8-2.4)
[2017-06-27 11:41] LABS: PHOSPHORUS LEVEL 3.6 MG/DL (2.5-4.9)
[2017-06-27] MEDS: VENLAFAXINE **XR** 75MG CAPSULE PO (11:53)
[2017-06-27] MEDS: busPIRone 5 MG TAB PO ×2 (16:46→21:04)
[2017-06-27] MEDS: PRAZOSIN 1 MG CAP PO (21:04)
[2017-06-27] MEDS: MIRTAZAPINE 15 MG TAB PO (21:04)
[2017-06-28] MEDS: FERROUS SULFATE 325MG TAB PO (08:45)
[2017-06-28] MEDS: VENLAFAXINE **XR** 75MG CAPSULE PO (08:45)
[2017-06-28] MEDS: busPIRone 5 MG TAB PO ×3 (08:45→21:11)
[2017-06-28] MEDS: PANTOPRAZOLE 40MG TAB (PROTONIX) PO (08:45)
[2017-06-28] MEDS: MIRTAZAPINE 15 MG TAB PO (21:10)
[2017-06-28] MEDS: PRAZOSIN 1 MG CAP PO (21:11)
[2017-06-29] MEDS: FERROUS SULFATE 325MG TAB PO (08:29)
[2017-06-29] MEDS: PANTOPRAZOLE 40MG TAB (PROTONIX) PO (08:29)
[2017-06-29] MEDS: busPIRone 5 MG TAB PO ×3 (08:29→21:12)
[2017-06-29] MEDS: VENLAFAXINE **XR** 75MG CAPSULE PO (08:30)
[2017-06-29] MEDS: PRAZOSIN 1 MG CAP PO (21:12)
[2017-06-29] MEDS: MIRTAZAPINE 15 MG TAB PO (21:12)
[2017-06-30] MEDS: PANTOPRAZOLE 40MG TAB (PROTONIX) PO (08:19)
[2017-06-30] MEDS: VENLAFAXINE **XR** 75MG CAPSULE PO (08:19)
[2017-06-30] MEDS: FERROUS SULFATE 325MG TAB PO (08:19)
[2017-06-30] MEDS: busPIRone 5 MG TAB PO ×3 (08:19→21:07)
[2017-06-30] MEDS: ACETAMINOPHEN TAB 650MG DOSE (2X325MG) PO (19:41)
[2017-06-30] MEDS: PRAZOSIN 1 MG CAP PO (21:07)
[2017-06-30] MEDS: MIRTAZAPINE 15 MG TAB PO (21:07)
[2017-07-01] MEDS: VENLAFAXINE **XR** 75MG CAPSULE PO (08:45)
[2017-07-01] MEDS: FERROUS SULFATE 325MG TAB PO (08:45)
[2017-07-01] MEDS: PANTOPRAZOLE 40MG TAB (PROTONIX) PO (08:45)
[2017-07-01] MEDS: busPIRone 5 MG TAB PO ×3 (08:45→21:01)
[2017-07-01] MEDS: MIRTAZAPINE 15 MG TAB PO (21:01)
[2017-07-01] MEDS: PRAZOSIN 1 MG CAP PO (21:01)
[2017-07-02] MEDS: busPIRone 5 MG TAB PO ×3 (09:16→20:52)
[2017-07-02] MEDS: PANTOPRAZOLE 40MG TAB (PROTONIX) PO (09:16)
[2017-07-02] MEDS: FERROUS SULFATE 325MG TAB PO (09:16)
[2017-07-02] MEDS: VENLAFAXINE **XR** 75MG CAPSULE PO (09:16)
[2017-07-02] MEDS: PRAZOSIN 1 MG CAP PO (20:52)
[2017-07-02] MEDS: MIRTAZAPINE 15 MG TAB PO (20:52)
[2017-07-03] MEDS: VENLAFAXINE **XR** 75MG CAPSULE PO (09:19)
[2017-07-03] MEDS: busPIRone 5 MG TAB PO (09:19)
[2017-07-03] MEDS: FERROUS SULFATE 325MG TAB PO (09:19)
[2017-07-03] MEDS: PANTOPRAZOLE 40MG TAB (PROTONIX) PO (09:19)
== END 2017-07-03 11:55 | disposition home or self-care (01) | DRG 885 ==
LOC: M PSY 06-27 16:39 → M ED 14:04 → M ED INP 18:07 → M PSY 21:02
DX: F33.1 Major depressive disorder, recurrent, moderate (principal); F50.2 Bulimia nervosa; F42.9 Obsessive-compulsive disorder, unspecified; Z79.899 Other long term (current) drug therapy; Z88.8 Allergy status to other drugs, medicaments and biological substances; Z91.038 Other insect allergy status; K21.9 Gastro-esophageal reflux disease without esophagitis; G43.909 Migraine, unspecified, not intractable, without status migrainosus; D50.9 Iron deficiency anemia, unspecified

== ENCOUNTER → 2017-08-17 | Outpatient (REF) | payer MEDICARE, MEDICAID ==
[2017-08-17 19:02] LABS: IRON (FE) 130 UG/DL (50-170)
[2017-08-17 19:02] LABS: FERRITIN 62 NG/ML (8-252)
[2017-08-17 19:33] LABS: BASO % 0.4 % (0.0-1.0); EOS # 0.1 10^3/uL (0.0-0.50); EOS % 1.8 % (0.0-3.0); HEMATOCRIT 41.4 % (36.0-47.0); HEMOGLOBIN 13.4 g/dl (12.0-15.5); IMMATURE GRANULOCYTE % 0.4 % (0-3.0); LYMPH # 2.2 10^3/uL (1.5-6.5); LYMPH % 27.8 % (24.0-44.0); MEAN CORPUSCULAR HEMOGLOBIN 28.3 pg (27.0-33.0); MEAN CORPUSCULAR HGB CONC 32.4 g/dl (32.0-36.5); MEAN CORPUSCULAR VOLUME 87.3 fl (80.0-96.0); MONO # 0.5 10^3/uL (0.0-0.8); MONO % 6.7 % (0.0-5.0); NEUTROPHILS # 4.9 10^3/uL (1.8-7.7); NEUTROPHILS % 62.9 % (36.0-66.0); PLATELET COUNT, AUTOMATED 240 10^3/uL (150-450); RED BLOOD COUNT 4.74 10^6/uL (4.00-5.40); RED CELL DISTRIBUTION WIDTH 12.4 % (11.5-14.5); WHITE BLOOD COUNT 7.7 10^3/uL (4.0-10.0)
== END ==
LOC: M LAB REF 18:20
DX: D64.9 Anemia, unspecified (principal)
CPT/HCPCS: 83540

== ENCOUNTER → 2017-09-18 | Outpatient (REF) | payer MEDICARE, MEDICAID ==
[2017-09-18 12:41] LABS: ALBUMIN/GLOBULIN RATIO 1.29 (1.00-1.93); ALKALINE PHOSPHATASE 57 U/L (45-117); ALT/SGPT 18 U/L (12-78); ANION GAP 8 MEQ/L (8-16); AST/SGOT 14 U/L (7-37); BILIRUBIN,TOTAL 0.5 MG/DL (0.2-1.0); BLOOD UREA NITROGEN 10 MG/DL (7-18); CALCIUM LEVEL 9.2 MG/DL (8.5-10.1); CARBON DIOXIDE LEVEL 30 MEQ/L (21-32); CHLORIDE LEVEL 102 MEQ/L (98-107); CREATININE FOR GFR 0.82 MG/DL (0.55-1.30); GLOMERULAR FILTRATION RATE > 60.0 (>60); GLUCOSE, FASTING 82 MG/DL (70-100); MAGNESIUM LEVEL 2.2 MG/DL (1.8-2.4); POTASSIUM SERUM 3.7 MEQ/L (3.5-5.1); SODIUM LEVEL 140 MEQ/L (136-145); TOTAL PROTEIN 7.1 GM/DL (6.4-8.2)
== END ==
LOC: M LAB REF 12:02
DX: F50.89 Other specified eating disorder (principal)
CPT/HCPCS: 83735

== ENCOUNTER → 2017-10-31 | Outpatient (CLI) | payer MEDICARE, MEDICAID ==
[2017-10-31 09:13] LABS: ANION GAP 6 MEQ/L (8-16); BLOOD UREA NITROGEN 4 MG/DL (7-18); CALCIUM LEVEL 8.9 MG/DL (8.5-10.1); CARBON DIOXIDE LEVEL 28 MEQ/L (21-32); CHLORIDE LEVEL 110 MEQ/L (98-107); CREATININE FOR GFR 0.81 MG/DL (0.55-1.30); GLOMERULAR FILTRATION RATE > 60.0 (>60); GLUCOSE, FASTING 81 MG/DL (70-100); PHOSPHORUS LEVEL 3.5 MG/DL (2.5-4.9); POTASSIUM SERUM 4.1 MEQ/L (3.5-5.1); SODIUM LEVEL 144 MEQ/L (136-145)
== END ==
LOC: M LAB 07:50
DX: F60.3 Borderline personality disorder (principal)
CPT/HCPCS: 80178

== ENCOUNTER → 2017-11-26 | Outpatient (REF) | payer MEDICARE, MEDICAID | LOC: M LAB REF 17:42 | DX: R94.6 Abnormal results of thyroid function studies (principal) | CPT/HCPCS: 84443 ==

== ENCOUNTER 2018-03-06 15:34 | Inpatient (IN) | payer MEDICARE, MEDICAID ==
[2018-03-06 16:36] LABS: HEMATOCRIT 41.8 % (36.0-47.0); HEMOGLOBIN 13.5 g/dl (12.0-15.5); MEAN CORPUSCULAR HEMOGLOBIN 28.2 pg (27.0-33.0); MEAN CORPUSCULAR HGB CONC 32.3 g/dl (32.0-36.5); MEAN CORPUSCULAR VOLUME 87.4 fl (80.0-96.0); PLATELET COUNT, AUTOMATED 245 10^3/uL (150-450); RED BLOOD COUNT 4.78 10^6/uL (4.00-5.40); RED CELL DISTRIBUTION WIDTH 12.6 % (11.5-14.5); WHITE BLOOD COUNT 7.9 10^3/uL (4.0-10.0)
[2018-03-06 16:42] LABS: CONTROL LINE HCG INT CTR LINE PRESENT; HCG, SERUM QUALITATIVE NEGATIVE (NEGATIVE)
[2018-03-06 16:55] LABS: AMPHETAMINES LEVEL URINE NEGATIVE (NEGATIVE); BARBITURATES URINE NEGATIVE (NEGATIVE); BENZODIAZEPINES URINE NEGATIVE (NEGATIVE); CANNABINOIDS URINE NEGATIVE (NEGATIVE); COCAINE METABOLITE URINE NEGATIVE (NEGATIVE); METHADONE URINE NEGATIVE (NEGATIVE); OPIATES URINE NEGATIVE (NEGATIVE); PHENCYCLIDINE URINE NEGATIVE (NEGATIVE)
[2018-03-06 16:58] LABS: ACETAMINOPHEN LEVEL < 2.0 UG/ML (10.0-30.0); ALBUMIN/GLOBULIN RATIO 1.25 (1.00-1.93); ALKALINE PHOSPHATASE 55 U/L (45-117); ALT/SGPT 15 U/L (12-78); ANION GAP 9 MEQ/L (8-16); AST/SGOT 17 U/L (7-37); BILIRUBIN,DIRECT < 0.1 MG/DL (0.0-0.2); BILIRUBIN,TOTAL 0.2 MG/DL (0.2-1.0); BLOOD UREA NITROGEN 6 MG/DL (7-18); CALCIUM LEVEL 8.7 MG/DL (8.5-10.1); CARBON DIOXIDE LEVEL 23 MEQ/L (21-32); CHLORIDE LEVEL 109 MEQ/L (98-107); ETHYL ALCOHOL (ETHANOL) < 0.003 % (0.000-0.010); GLOMERULAR FILTRATION RATE > 60.0 (>60); GLUCOSE, FASTING 82 MG/DL (70-100); POTASSIUM SERUM 3.4 MEQ/L (3.5-5.1); SALICYLATE LEVEL < 1.7 MG/DL (5.0-30.0); SODIUM LEVEL 141 MEQ/L (136-145); TOTAL PROTEIN 7.2 GM/DL (6.4-8.2)
[2018-03-06] MEDS ORDERED: OLANZapine 5 MG TAB PO (18:30)
[2018-03-06] MEDS ORDERED: MAALOX 30 ML SUSP *UDC PO (18:30)
[2018-03-06] MEDS ORDERED: MOM 30ML SUSPENSION UDC PO (18:30)
[2018-03-06] MEDS: busPIRone 5 MG TAB PO (20:00)
[2018-03-06] MEDS: POTASSIUM CHLORIDE 10 MEQ SR TABLET PO (20:00)
[2018-03-06] MEDS: traZODone 50 MG TAB PO (23:00)
[2018-03-07] MEDS: VENLAFAXINE **XR** 75MG CAPSULE PO (09:56)
[2018-03-07] MEDS: busPIRone 5 MG TAB PO ×3 (09:56→21:44)
[2018-03-07] MEDS: PANTOPRAZOLE 40MG TAB (PROTONIX) PO (09:56)
[2018-03-07] MEDS ORDERED: MIRTAZAPINE 15 MG TAB PO (21:00)
[2018-03-07] MEDS: PRAZOSIN 1 MG CAP PO (21:44)
[2018-03-07] MEDS: traZODone 50 MG TAB PO (21:44)
[2018-03-08 07:45] LABS: ANION GAP 9 MEQ/L (8-16); BLOOD UREA NITROGEN 12 MG/DL (7-18); CARBON DIOXIDE LEVEL 27 MEQ/L (21-32); CHLORIDE LEVEL 107 MEQ/L (98-107); CREATININE FOR GFR 0.83 MG/DL (0.55-1.30); GLOMERULAR FILTRATION RATE > 60.0 (>60); GLUCOSE, FASTING 81 MG/DL (70-100); POTASSIUM SERUM 4.2 MEQ/L (3.5-5.1); SODIUM LEVEL 143 MEQ/L (136-145)
[2018-03-08] MEDS: PANTOPRAZOLE 40MG TAB (PROTONIX) PO (09:53)
[2018-03-08] MEDS: VENLAFAXINE **XR** 75MG CAPSULE PO (09:53)
[2018-03-08] MEDS: busPIRone 5 MG TAB PO ×3 (09:53→21:40)
[2018-03-08] MEDS: INFLUENZA QUADRIVALENT PF VACCINE 0.5ML SYRINGE (90686) IM (09:56)
[2018-03-08] MEDS: traZODone 50 MG TAB PO (21:40)
[2018-03-08] MEDS: PRAZOSIN 1 MG CAP PO (21:40)
[2018-03-09] MEDS: busPIRone 5 MG TAB PO ×3 (08:44→20:28)
[2018-03-09] MEDS: PANTOPRAZOLE 40MG TAB (PROTONIX) PO (08:44)
[2018-03-09] MEDS: VENLAFAXINE **XR** 75MG CAPSULE PO (08:44)
[2018-03-09] MEDS: traZODone 50 MG TAB PO (20:28)
[2018-03-09] MEDS: PRAZOSIN 1 MG CAP PO (20:28)
[2018-03-10] MEDS: VENLAFAXINE **XR** 75MG CAPSULE PO (09:50)
[2018-03-10] MEDS: busPIRone 5 MG TAB PO ×3 (09:50→21:31)
[2018-03-10] MEDS: PANTOPRAZOLE 40MG TAB (PROTONIX) PO (09:50)
[2018-03-10] MEDS: AUGMENTIN 875 MG TAB PO ×2 (14:18→21:31)
[2018-03-10] MEDS: MUPIROCIN 2% OINT 22 GM TUBE TOP ×2 (14:18→21:32)
[2018-03-10] MEDS: traZODone 50 MG TAB PO (21:31)
[2018-03-10] MEDS: PRAZOSIN 1 MG CAP PO (21:31)
[2018-03-11 06:59] LABS: BASO % 0.6 % (0.0-1.0); EOS # 0.2 10^3/uL (0.0-0.50); EOS % 2.5 % (0.0-3.0); HEMATOCRIT 39.9 % (36.0-47.0); IMMATURE GRANULOCYTE % 0.3 % (0-3.0); LYMPH # 2.4 10^3/uL (1.5-6.5); LYMPH % 34.8 % (24.0-44.0); MEAN CORPUSCULAR HEMOGLOBIN 28.4 pg (27.0-33.0); MEAN CORPUSCULAR HGB CONC 32.6 g/dl (32.0-36.5); MEAN CORPUSCULAR VOLUME 87.1 fl (80.0-96.0); MONO # 0.5 10^3/uL (0.0-0.8); MONO % 6.7 % (0.0-5.0); NEUTROPHILS # 3.8 10^3/uL (1.8-7.7); NEUTROPHILS % 55.1 % (36.0-66.0); PLATELET COUNT, AUTOMATED 234 10^3/uL (150-450); RED BLOOD COUNT 4.58 10^6/uL (4.00-5.40); RED CELL DISTRIBUTION WIDTH 12.6 % (11.5-14.5); WHITE BLOOD COUNT 6.8 10^3/uL (4.0-10.0)
[2018-03-11] MEDS: AUGMENTIN 875 MG TAB PO ×2 (08:48→21:14)
[2018-03-11] MEDS: MUPIROCIN 2% OINT 22 GM TUBE TOP ×2 (08:48→21:00)
[2018-03-11] MEDS: VENLAFAXINE **XR** 75MG CAPSULE PO (08:48)
[2018-03-11] MEDS: PANTOPRAZOLE 40MG TAB (PROTONIX) PO (08:48)
[2018-03-11] MEDS: busPIRone 5 MG TAB PO ×3 (08:48→21:14)
[2018-03-11] MEDS: traZODone 50 MG TAB PO (21:14)
[2018-03-11] MEDS: PRAZOSIN 1 MG CAP PO (21:15)
[2018-03-12] MEDS: AUGMENTIN 875 MG TAB PO ×2 (09:15→21:04)
[2018-03-12] MEDS: MUPIROCIN 2% OINT 22 GM TUBE TOP ×2 (09:15→21:05)
[2018-03-12] MEDS: VENLAFAXINE **XR** 75MG CAPSULE PO (09:15)
[2018-03-12] MEDS: PANTOPRAZOLE 40MG TAB (PROTONIX) PO (09:15)
[2018-03-12] MEDS: busPIRone 5 MG TAB PO ×3 (09:15→21:04)
[2018-03-12] MEDS: traZODone 50 MG TAB PO (21:04)
[2018-03-12] MEDS: PRAZOSIN 1 MG CAP PO (21:05)
[2018-03-13] MEDS: AUGMENTIN 875 MG TAB PO ×2 (09:35→21:33)
[2018-03-13] MEDS: PANTOPRAZOLE 40MG TAB (PROTONIX) PO (09:35)
[2018-03-13] MEDS: VENLAFAXINE **XR** 75MG CAPSULE PO (09:35)
[2018-03-13] MEDS: busPIRone 5 MG TAB PO ×3 (09:35→21:33)
[2018-03-13] MEDS: MUPIROCIN 2% OINT 22 GM TUBE TOP ×2 (09:36→21:40)
[2018-03-13] MEDS: ACETAMINOPHEN TAB 650MG DOSE (2X325MG) PO (10:20)
[2018-03-13] MEDS: traZODone 50 MG TAB PO (21:33)
[2018-03-13] MEDS: PRAZOSIN 1 MG CAP PO (21:33)
[2018-03-14] MEDS: busPIRone 5 MG TAB PO (09:03)
[2018-03-14] MEDS: PANTOPRAZOLE 40MG TAB (PROTONIX) PO (09:03)
[2018-03-14] MEDS: VENLAFAXINE **XR** 75MG CAPSULE PO (09:03)
[2018-03-14] MEDS: MUPIROCIN 2% OINT 22 GM TUBE TOP (09:03)
[2018-03-14] MEDS: AUGMENTIN 875 MG TAB PO (09:03)
== END 2018-03-14 11:15 | disposition home or self-care (01) | DRG 881 ==
LOC: M ED 15:34 → M ED INP 18:16 → M PSY 21:36
DX: F32.9 Major depressive disorder, single episode, unspecified (principal); F50.2 Bulimia nervosa; R45.851 Suicidal ideations; F43.10 Post-traumatic stress disorder, unspecified; Z79.899 Other long term (current) drug therapy; F41.9 Anxiety disorder, unspecified; K21.9 Gastro-esophageal reflux disease without esophagitis; G43.909 Migraine, unspecified, not intractable, without status migrainosus; E87.6 Hypokalemia; Z88.8 Allergy status to other drugs, medicaments and biological substances; Z91.038 Other insect allergy status

== ENCOUNTER → 2018-03-25 | Outpatient (REF) | payer MEDICARE, MEDICAID ==
[~2018-03-25] MED LIST changes: +ACET500T15 PO; +AMOX875T2 PO; +BUSP5TA PO; +CLON-412 PO; -DIVA250T PO; +DIVA250T67 PO; -DIVA500T3 PO; +DIVA500T94 PO; +EFFE75CA2 PO; +FERR1TAB8; -GABA-283 PO; +GABA-845 PO; -GABA600T PO; +GABA600T4 PO; +MINI1CAP PO; +MUPI2OI TOP; -PANT40TA2 PO; +PANT40TA3 PO; +PROP10TAB PO; +PROT1TAB2 PO; +PROTPAK PO; +REME15TA PO; +TRAZ-160 PO; -TRAZ50TA11 PO; +VENL150C43 PO; +VENL75CA2 PO
[2018-03-25 18:40] LABS: ALBUMIN 4.3 GM/DL (3.2-5.2); ALT/SGPT 15 U/L (12-78); BILIRUBIN,TOTAL 0.3 MG/DL (0.2-1.0); BLOOD UREA NITROGEN 7 MG/DL (7-18); CALCIUM LEVEL 9.4 MG/DL (8.5-10.1); CARBON DIOXIDE LEVEL 30 MEQ/L (21-32); CHLORIDE LEVEL 105 MEQ/L (98-107); CREATININE FOR GFR 0.82 MG/DL (0.55-1.30); GLOMERULAR FILTRATION RATE > 60.0 (>60); GLUCOSE, FASTING 83 MG/DL (70-100); IRON (FE) 60 UG/DL (50-170); MAGNESIUM LEVEL 2.2 MG/DL (1.8-2.4); POTASSIUM SERUM 4.2 MEQ/L (3.5-5.1); SODIUM LEVEL 141 MEQ/L (136-145); TOTAL PROTEIN 7.4 GM/DL (6.4-8.2)
== END ==
LOC: M LAB REF 16:54
PROVIDERS: ATTEND Nurse Practitioner Adult Health
DX: F50.89 Other specified eating disorder (principal)

== ENCOUNTER → 2018-10-30 | Outpatient (CLI) | payer MEDICARE, MEDICAID ==
[~2018-10-30] MED LIST changes: -OMEP20CA3 PO; +OMEP20CA4 PO; +PROP10TA55 PO; -PROP10TAB PO; -TRAZ-160 PO; +TRAZ-252 PO; +TRAZ1TAB10 PO; -TRAZO50TA PO
[2018-10-30 10:33] LABS: BASO % 0.8 % (0.0-1.0); EOS # 0.1 10^3/uL (0.0-0.50); EOS % 2.3 % (0.0-3.0); HEMATOCRIT 35.9 % (36.0-47.0); HEMOGLOBIN 11.5 g/dl (12.0-15.5); LYMPH # 1.6 10^3/uL (1.5-6.5); LYMPH % 30.6 % (24.0-44.0); MEAN CORPUSCULAR HEMOGLOBIN 29.2 pg (27.0-33.0); MEAN CORPUSCULAR VOLUME 91.1 fl (80.0-96.0); MONO # 0.4 10^3/uL (0.0-0.8); MONO % 7.4 % (0.0-5.0); NEUTROPHILS # 3.1 10^3/uL (1.8-7.7); NEUTROPHILS % 58.5 % (36.0-66.0); PLATELET COUNT, AUTOMATED 273 10^3/uL (150-450); RED BLOOD COUNT 3.94 10^6/uL (4.00-5.40); WHITE BLOOD COUNT 5.3 10^3/uL (4.0-10.0)
[2018-10-30 11:12] LABS: ALBUMIN 3.9 GM/DL (3.2-5.2); ALT/SGPT 14 U/L (12-78); BILIRUBIN,DIRECT < 0.1 MG/DL (0.0-0.2); BILIRUBIN,TOTAL 0.2 MG/DL (0.2-1.0); BLOOD UREA NITROGEN 13 MG/DL (7-18); CALCIUM LEVEL 8.5 MG/DL (8.5-10.1); CARBON DIOXIDE LEVEL 29 MEQ/L (21-32); CHLORIDE LEVEL 108 MEQ/L (98-107); CHOLESTEROL LEVEL 177 MG/DL (<200); CREATININE FOR GFR 0.71 MG/DL (0.55-1.30); GLOMERULAR FILTRATION RATE > 60.0 (>60); GLUCOSE, FASTING 78 MG/DL (70-100); HDL CHOLESTEROL 56 MG/DL (>40); LDL CHOLESTEROL 105 MG/DL (<100); NON-HDL-C 121 MG/DL; POTASSIUM SERUM 4.2 MEQ/L (3.5-5.1); SODIUM LEVEL 143 MEQ/L (136-145); TOTAL 25(OH) VITAMIN D 30.8 NG/ML (30.0-100.0); TOTAL PROTEIN 7.1 GM/DL (6.4-8.2); TRIGLYCERIDES LEVEL 80 MG/DL (<150); VITAMIN B12 LEVEL 316 PG/ML (247-911)
[2018-10-30 11:50] LABS: HCG, SERUM QUALITATIVE NEGATIVE (NEGATIVE)
== END ==
LOC: M LAB 09:22
PROVIDERS: ATTEND Nurse Practitioner Psychiatric/Mental Health
DX: Z51.81 Encounter for therapeutic drug level monitoring (principal); Z13.9 Encounter for screening, unspecified; Z79.899 Other long term (current) drug therapy

== ENCOUNTER 2019-02-05 14:31 | Inpatient (IN) | payer MEDICARE, MEDICAID ==
[~2019-02-05] VITALS: Ht 170.2 cm; Wt 66.9 kg
[2019-02-05] MEDS ORDERED: MULTCAP PO (14:38)
[2019-02-05] MEDS ORDERED: PRAZ1CAP PO (14:38)
[2019-02-05 16:00] LABS: HEMATOCRIT 39.6 % (36.0-47.0); HEMOGLOBIN 12.3 g/dl (12.0-15.5); MEAN CORPUSCULAR HEMOGLOBIN 26.5 pg (27.0-33.0); MEAN CORPUSCULAR HGB CONC 31.1 g/dl (32.0-36.5); MEAN CORPUSCULAR VOLUME 85.2 fl (80.0-96.0); PLATELET COUNT, AUTOMATED 234 10^3/uL (150-450); RED BLOOD COUNT 4.65 10^6/uL (4.00-5.40); WHITE BLOOD COUNT 6.4 10^3/uL (4.0-10.0)
[2019-02-05 16:21] LABS: AMPHETAMINES LEVEL URINE NEGATIVE (NEGATIVE); BARBITURATES URINE NEGATIVE (NEGATIVE); BENZODIAZEPINES URINE NEGATIVE (NEGATIVE); CANNABINOIDS URINE NEGATIVE (NEGATIVE); COCAINE METABOLITE URINE NEGATIVE (NEGATIVE); METHADONE URINE NEGATIVE (NEGATIVE); OPIATES URINE NEGATIVE (NEGATIVE); PHENCYCLIDINE URINE NEGATIVE (NEGATIVE)
[2019-02-05 16:29] LABS: HCG, SERUM QUALITATIVE NEGATIVE (NEGATIVE)
[2019-02-05 16:34] LABS: ACETAMINOPHEN LEVEL < 2.0 UG/ML (10.0-30.0); ALT/SGPT 15 U/L (12-78); BILIRUBIN,DIRECT < 0.1 MG/DL (0.0-0.2); BILIRUBIN,TOTAL 0.3 MG/DL (0.2-1.0); BLOOD UREA NITROGEN 5 MG/DL (7-18); CARBON DIOXIDE LEVEL 28 MEQ/L (21-32); CHLORIDE LEVEL 108 MEQ/L (98-107); CREATININE FOR GFR 0.77 MG/DL (0.55-1.30); ETHYL ALCOHOL (ETHANOL) < 0.003 % (0.000-0.010); GLOMERULAR FILTRATION RATE > 60.0 (>60); GLUCOSE, FASTING 89 MG/DL (70-100); POTASSIUM SERUM 3.9 MEQ/L (3.5-5.1); SALICYLATE LEVEL < 1.7 MG/DL (5.0-30.0); SODIUM LEVEL 143 MEQ/L (136-145); TOTAL PROTEIN 7.3 GM/DL (6.4-8.2)
[2019-02-05] MEDS ORDERED: VENL150C43 PO (18:42)
[2019-02-05] MEDS ORDERED: MOM 30ML SUSPENSION UDC PO PRN (19:30)
[2019-02-05] MEDS ORDERED: MAALOX 30 ML SUSP *UDC PO PRN (19:30)
[2019-02-05] MEDS ORDERED: ACETAMINOPHEN TAB 650MG DOSE (2X325MG) PO PRN (19:30)
[2019-02-05 22:39] VITALS: BP 122/71
[2019-02-05] MEDS: busPIRone 5 MG TAB PO SCH (22:45)
[2019-02-05] MEDS: MIRTAZAPINE 15 MG TAB PO SCH (22:45)
[2019-02-05] MEDS: PRAZOSIN 1 MG CAP PO SCH (22:46)
[2019-02-06 06:36] VITALS: BP 107/58
[2019-02-06] MEDS: FLUTICASONE PROP 0.05% NASAL SPRAY 16 GM (FLONASE) NARES SCH (09:00)
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
[2019-02-06] MEDS: MULTIVITAMINS/MINERALS THERAP 1 TAB PO SCH (09:40)
[2019-02-06] MEDS: PANTOPRAZOLE 40MG TAB (PROTONIX) PO SCH (09:40)
[2019-02-06] MEDS: busPIRone 5 MG TAB PO SCH ×3 (09:40→20:45)
[2019-02-06] MEDS: VENLAFAXINE **XR** 75MG CAPSULE PO SCH (09:42)
[2019-02-06] MEDS ORDERED: CETIRIZINE (ZyrTEC) 10 MG TAB PO ONE (12:45)
[2019-02-06 18:00] VITALS: BP 116/61
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
[2019-02-06] MEDS: MIRTAZAPINE 15 MG TAB PO SCH (20:45)
[2019-02-06] MEDS: PRAZOSIN 1 MG CAP PO SCH (20:45)
[2019-02-07 06:18] VITALS: BP 113/59
[2019-02-07] MEDS ORDERED: INFLUENZA QUADRIVALENT PF VACCINE 0.5ML SYRINGE (90686) IM ONE (09:00)
[2019-02-07] MEDS: FLUTICASONE PROP 0.05% NASAL SPRAY 16 GM (FLONASE) NARES SCH (09:37)
[2019-02-07] MEDS: busPIRone 5 MG TAB PO SCH ×3 (09:37→21:09)
[2019-02-07] MEDS: VENLAFAXINE **XR** 75MG CAPSULE PO SCH (09:38)
[2019-02-07] MEDS: CETIRIZINE (ZyrTEC) 10 MG TAB PO SCH (09:38)
[2019-02-07] MEDS: MULTIVITAMINS/MINERALS THERAP 1 TAB PO SCH (09:38)
[2019-02-07] MEDS: PANTOPRAZOLE 40MG TAB (PROTONIX) PO SCH (09:38)
--- NOTE | 2019-02-07 10:46 | MHIPNPDOC ---
[facility] Progress Note Progress Note Inpatient Progress Note Ellie Santos MRN: N/A Date of : N/A Date of Service: 02/07/2019 History of Present Illness Patient is a 28-year-old woman with a long history of depression and PTSD presents to [facility] suicidal with a plan to jump off a local bridge. She reportedly had become increasingly depressed, anxious after stopping her medications several days prior. She reported that she felt worse for short time after having a year of generally good results of her depression treatment and began to spiral into further depression as she withdrew from her venlafaxine. She reported that her treatment lack produced insomnia, anxiety and difficulty being around others. She reportedly began to endorse severely concerning suicidal ideation and even on this assessment still has intermittent suicidal ideation. She has severe hopelessness and in general has not been getting better since stopping of her medications. Previous protective factors no longer appear to be ideal for her at this time. The patient is amenable to staying. Interval History The patient was met with today. She reports that she is doing somewhat better with better sleep and less depressed mood, although she is still having intermittent suicidal thoughts. She reports that her anxiety still is up, but she is able to socialize with no problems overnight. The patient reports she still feels hopeless and at times helpless in her current situation. No notation of any bulimic or more purging behaviors per staff on observation. Review Of Systems General: Denies fever or appetite changes Cardiovascular: Denies Chest pain or palpations GI: Denies Nausea, vomiting, or bowel changes Respiratory: Denies shortness of breath or cough Neuro: Denies dizziness, tremors Derm: Denies any rashes or pruritus : Denies any dysuria or urinary problems MSK: Denies any muscle tightness or stiffness HEENT: Denies any vision changes or headaches Heme/Lymph: denies any bruising or bleeding Endo: denies any cold/heat intolerance or water intake changes Psychotherapy None on this visit. Vital Signs Reviewed. Mental Status Examination General: Well dressed with good hygiene Speech: Only answers questions Thought processes: Linear and logical MSK: Smooth and coordinated gait, no signs of tremors or involuntary orofacial movements Thought content: Severe hopelessness Abstract reasoning, and computation: Intact Description of associations: Intact Description of abnormal or psychotic thoughts: Admits to intermittent suicidal ideation. Denies homicidal ideation or auditory or visual hallucinations. Does not appear to be responding to internal stimuli. Judgment: Impaired. Insight: Impaired. Orientation: Alert and orientated 3 Cognition: Grossly normal Recent and remote memory: Intact Attention span and concentration: Intact Fund of knowledge: Adequate Mood: "bad" Affect: Profoundly flat Diagnoses MDD, unspecified. PTSD, chronic. Bulimia. Assessment and Plan MDD/PTSD: We will restart home psychiatric medications at this time and monitor for need for change. Bulimia: We will continue to watch if symptoms emerge on inpatient where she might need to have further monitoring. Disposition The patient will need a further inpatient admission in order to treat her severe hopelessness, depression and suicidal thoughts. Time Spent 15 minutes [id number]. Sunday Vital Signs Vital Signs Date Time Temp Pulse Resp B/P (MAP) Pulse Ox O2 Delivery O2 Flow Rate FiO2 02/07/19 06:18 97.8 78 18 113/59 (77) 02/06/19 06:36 Room Air 02/05/19 22:39 99 Current Medications Current Medications Medications (Trade) Dose Ordered Sig/Christian Route PRN Reason Start Time Stop Time Status Last Admin Dose Admin Acetaminophen (Tylenol Tab) 650 mg Q6HP PRN PO HEADACHE or DISCOMFORT 02/05/19 19:30 Al Hydrox/Mg Hydrox/Simethicone (Mylanta) 30 ml Q4HP PRN PO HEARTBURN/INDIGESTION 02/05/19 19:30 Buspirone HCl (Buspar) 5 mg TID PO 02/05/19 21:00 02/07/19 09:37 Cetirizine HCl (ZyrTEC) 10 mg DAILY PO 02/07/19 09:00 02/07/19 09:38 Fluticasone Propionate (Flonase 0.05% Nasal [place]) 2 spray DAILY NARES 02/06/19 09:00 02/07/19 09:37 Home Med (Med Rec Complete!) ASDIRECTED XX 02/05/19 18:45 02/05/19 18:45 DC Magnesium Hydroxide (Milk Of Magnesia) 30 ml DAILYPRN PRN PO CONSTIPATION 02/05/19 19:30 Mirtazapine (Remeron) 15 mg QHS PO 02/05/19 21:00 02/06/19 20:45 Multivitamins (Theragram-M) 1 tab DAILY PO 02/06/19 09:00 02/07/19 09:38 Pantoprazole Sodium (Protonix) 40 mg DAILY PO 02/06/19 09:00 02/07/19 09:38 Prazosin HCl (Minipress) 3 mg QHS PO 02/05/19 21:00 02/06/19 20:45 Venlafaxine HCl (Effexor Xr) 150 mg DAILY PO 02/06/19 09:00 02/07/19 09:38 Allergies Coded Allergies: bee venom protein (honey bee) (Verified Allergy, Unknown, 02/05/19) hydroxyzine (Verified Adverse Reaction, Unknown, 02/05/19) CRAIG BAEZ DO Feb 07, 2019 10:46
[2019-02-07 18:00] VITALS: BP 116/61
[2019-02-07] MEDS: MIRTAZAPINE 15 MG TAB PO SCH (21:09)
[2019-02-07] MEDS: PRAZOSIN 1 MG CAP PO SCH (21:09)
[2019-02-08 06:44] VITALS: BP 91/53
[2019-02-08] MEDS: VENLAFAXINE **XR** 75MG CAPSULE PO SCH (08:18)
[2019-02-08] MEDS: MULTIVITAMINS/MINERALS THERAP 1 TAB PO SCH (08:18)
[2019-02-08] MEDS: busPIRone 5 MG TAB PO SCH ×3 (08:18→20:59)
[2019-02-08] MEDS: FLUTICASONE PROP 0.05% NASAL SPRAY 16 GM (FLONASE) NARES SCH (08:18)
[2019-02-08] MEDS: PANTOPRAZOLE 40MG TAB (PROTONIX) PO SCH (08:18)
[2019-02-08] MEDS: CETIRIZINE (ZyrTEC) 10 MG TAB PO SCH (08:18)
[2019-02-08] MEDS ORDERED: CEPACOL LOZENGE PO PRN (10:30)
--- NOTE | 2019-02-08 16:27 | IPN ---
DATE OF ADMISSION: 02/07/2019 HISTORY: This is a 28-year-old female on the inpatient mental health unit. She was initially seen medically by Dr. Charisma Hernandez on the . She had been complaining of upper respiratory complaints, postnasal drip, plugged feeling in her sinus, dry cough. White count was normal. She was started on Zyrtec 10 mg by mouth daily and fluticasone nasal spray. I saw her this afternoon. She states that she is feeling much better. She has no cough. She can breathe clearer. Postnasal drip is improved. No sore throat. No difficulty swallowing. She has a history of migraine headaches. She has had no headache. She has a history of reflux with good response to Protonix. She is feeling well today. OBJECTIVE: Temperature 97.8, blood pressure 113/59, pulse 78, respirations 18. The patient is alert and oriented. HEENT: Tympanic membranes pearly bilaterally. Pharynx, gums and tongue pink and moist. Tongue is midline. NECK: Supple without lymphadenopathy, thyromegaly or goiter. CHEST: Clear to auscultation without wheeze or retraction. HEART: Regular. ABDOMEN: Benign. EXTREMITIES: No clubbing, cyanosis, and edema. Peripheral pulses equal and palpable bilaterally. IMPRESSION/PLAN: 1. Viral cold. Symptomatology improved with Zyrtec and Flonase. 2. History of gastroesophageal reflux disease (GERD), stable. Continue Protonix with good response. 3. History of seizures. No recurrent episodes. Continue current medications without change.
[2019-02-08 17:04] VITALS: BP 120/67
[2019-02-08] MEDS: PRAZOSIN 1 MG CAP PO SCH (20:59)
[2019-02-08] MEDS: MIRTAZAPINE 15 MG TAB PO SCH (20:59)
--- NOTE | 2019-02-09 00:33 | MHIPN ---
DATE: 02/08/2019 The patient today states that she is feeling better, though she admits that "I'm always a little bit down." She says that mood is about 4/10 with closer to 10 the most depressed. She says she is sleeping good. She says she is not suicidal today. MENTAL STATUS EXAMINATION: She is alert, oriented times three. Eye contact is fair. Psychomotor activity is normal. There is no formal thought disorder noted. Mood is "better." Affect is constricted, but appropriate to mood. She is not psychotic, suicidal or homicidal. Concentration is fair. Memory intact. Insight and judgment fair. DIAGNOSES: 1. Major depressive disorder, unspecified. 2. Posttraumatic stress disorder, chronic. Will continue to monitor the patient. Will continue elevation and stabilization of his mood and continue resolution of suicidal ideation. When stable, she will be discharged with appropriate followup.
[2019-02-09 06:48] VITALS: BP_SYST 106; BP_SYST 112; BP_DIAS 58; BP_DIAS 61
[2019-02-09] MEDS: FLUTICASONE PROP 0.05% NASAL SPRAY 16 GM (FLONASE) NARES SCH (08:55)
[2019-02-09] MEDS: CETIRIZINE (ZyrTEC) 10 MG TAB PO SCH (08:55)
[2019-02-09] MEDS: MULTIVITAMINS/MINERALS THERAP 1 TAB PO SCH (08:55)
[2019-02-09] MEDS: VENLAFAXINE **XR** 75MG CAPSULE PO SCH (08:55)
[2019-02-09] MEDS: PANTOPRAZOLE 40MG TAB (PROTONIX) PO SCH (08:55)
[2019-02-09] MEDS: busPIRone 5 MG TAB PO SCH ×3 (08:55→21:30)
[2019-02-09 15:37] VITALS: BP 126/71
[2019-02-09] MEDS: MIRTAZAPINE 15 MG TAB PO SCH (21:30)
[2019-02-09] MEDS: PRAZOSIN 1 MG CAP PO SCH (21:30)
[2019-02-10 06:03] VITALS: BP 113/53
--- NOTE | 2019-02-10 06:43 | MHIPN ---
DATE OF SERVICE: 02/09/2019 The patient today states that she still continues to feel depressed. She says that she is feeling hopeless and helpless. She did sleep however. MENTAL STATUS EXAMINATION: She is alert, oriented times three. Eye contact is pretty good. She is verbally spontaneous. There is no formal thought disorder noted. Mood is depressed. Affect is full range and appropriate. She is not psychotic, suicidal or homicidal. Concentration and memory is good. Insight and judgment good. DIAGNOSIS: Major depressive disorder, unspecified. Post traumatic stress disorder, chronic. Bulimia. TREATMENT PLAN: At this point, the patient is very depressed. She had stopped her medications a few days before she came in and she had been on Effexor XR 150 mg and so I am going to increase it to 225 mg daily. We will continue to monitor the patient for continued elevation and stabilization of her mood and continued resolution of suicidal ideations.
[2019-02-10] MEDS: FLUTICASONE PROP 0.05% NASAL SPRAY 16 GM (FLONASE) NARES SCH (08:47)
[2019-02-10] MEDS: PANTOPRAZOLE 40MG TAB (PROTONIX) PO SCH (08:47)
[2019-02-10] MEDS: busPIRone 5 MG TAB PO SCH ×3 (08:48→21:13)
[2019-02-10] MEDS: MULTIVITAMINS/MINERALS THERAP 1 TAB PO SCH (08:48)
[2019-02-10] MEDS: VENLAFAXINE **XR** 75MG CAPSULE PO SCH (08:49)
[2019-02-10] MEDS: CETIRIZINE (ZyrTEC) 10 MG TAB PO SCH (08:49)
--- NOTE | 2019-02-10 09:26 | MHIPNPDOC ---
[facility] Progress Note Progress Note Inpatient Progress Note Elile Santos MRN: N/A Date of : N/A Date of Service: 02/10/2019 History of Present Illness Patient is a 28-year-old woman with a long history of depression and PTSD presents to [facility] suicidal with a plan to jump off a local bridge. She reportedly had become increasingly depressed, anxious after stopping her medications several days prior. She reported that she felt worse for short time after having a year of generally good results of her depression treatment and began to spiral into further depression as she withdrew from her venlafaxine. She reported that her treatment lack produced insomnia, anxiety and difficulty being around others. She reportedly began to endorse severely concerning suicidal ideation and even on this assessment still has intermittent suicidal ideation. She has severe hopelessness and in general has not been getting better since stopping of her medications. Previous protective factors no longer appear to be ideal for her at this time. The patient is amenable to staying. Interval History The patient is met with today. She reports her depression is slowly resolving. Her mood and motivation appear to be improving as well. Transitional living services is concerned due to her noncompliance in her hopelessness on presentation to our unit. She has been doing while, attending groups, becoming increasingly more social, hanging out with a group of friends. She appears to be making strides in her treatment. She reports her sleep has improved and other than a dry throat from the heating, she reports she is otherwise doing well. Nursing staff note no behavioral problems overnight. Review Of Systems General: Denies fever or appetite changes Cardiovascular: Denies Chest pain or palpations GI: Denies Nausea, vomiting, or bowel changes Respiratory: Denies shortness of breath or cough Neuro: Denies dizziness, tremors Derm: Denies any rashes or pruritus : Denies any dysuria or urinary problems MSK: Denies any muscle tightness or stiffness HEENT: Denies any vision changes or headaches Heme/Lymph: denies any bruising or bleeding Endo: denies any cold/heat intolerance or water intake changes Psychotherapy None on this visit. Vital Signs Reviewed. Mental Status Examination General: Well dressed with good hygiene Speech: More spontaneous Thought processes: Less hopeless MSK: Smooth and coordinated gait, no signs of tremors or involuntary orofacial movements Thought content: Severe hopelessness Abstract reasoning, and computation: Intact Description of associations: Intact Description of abnormal or psychotic thoughts: Denies any specific suicidal ideation at this time. Denies homicidal ideation. Denies visual or auditory h allucinations. Judgment: Improving. Insight: Improving. Orientation: Alert and orientated 3 Cognition: Grossly normal Recent and remote memory: Intact Attention span and concentration: Intact Fund of knowledge: Adequate Mood: "okay" Affect: More reactive Diagnoses MDD, unspecified. PTSD, chronic. Bulimia. Assessment and Plan MDD/PTSD: Continue home medications at this time, no changes needed. Bulimia: We will continue to watch if symptoms emerge on inpatient where she might need to have further monitoring. Disposition Patient will need another day or so of observation in order to ensure that her progress is continuous due to her high risk for suicide. Time Spent 15 minutes. Sunday Vital Signs Vital Signs Date Time Temp Pulse Resp B/P (MAP) Pulse Ox O2 Delivery O2 Flow Rate FiO2 02/10/19 06:03 97.9 75 16 113/53 (73) 02/06/19 06:36 Room Air 02/05/19 22:39 99 Current Medications Current Medications Medications (Trade) Dose Ordered Sig/Christian Route PRN Reason Start Time Stop Time Status Last Admin Dose Admin Acetaminophen (Tylenol Tab) 650 mg Q6HP PRN PO HEADACHE or DISCOMFORT 02/05/19 19:30 02/07/19 15:15 Al Hydrox/Mg Hydrox/Simethicone (Mylanta) 30 ml Q4HP PRN PO HEARTBURN/INDIGESTION 02/05/19 19:30 Buspirone HCl (Buspar) 5 mg TID PO 02/05/19 21:00 02/10/19 08:48 Cetirizine HCl (ZyrTEC) 10 mg DAILY PO 02/07/19 09:00 02/10/19 08:49 Cetylpyridinium Chloride (Cepacol) 1 marilin Q2HP PRN PO COUGH 02/08/19 10:30 Fluticasone Propionate (Flonase 0.05% Nasal [place]) 2 spray DAILY NARES 02/06/19 09:00 02/10/19 08:47 Home Med (Med Rec Complete!) ASDIRECTED XX 02/05/19 18:45 02/05/19 18:45 DC Magnesium Hydroxide (Milk Of Magnesia) 30 ml DAILYPRN PRN PO CONSTIPATION 02/05/19 19:30 Mirtazapine (Remeron) 15 mg QHS PO 02/05/19 21:00 02/09/19 21:30 Multivitamins (Theragram-M) 1 tab DAILY PO 02/06/19 09:00 02/10/19 08:48 Pantoprazole Sodium (Protonix) 40 mg DAILY PO 02/06/19 09:00 02/10/19 08:47 Prazosin HCl (Minipress) 3 mg QHS PO 02/05/19 21:00 02/09/19 21:30 Venlafaxine HCl (Effexor Xr) 150 mg DAILY PO 02/06/19 09:00 02/10/19 08:49 Allergies Coded Allergies: bee venom protein (honey bee) (Verified Allergy, Unknown, 02/05/19) hydroxyzine (Verified Adverse Reaction, Unknown, 02/05/19) CRAIG BAEZ DO Feb 10, 2019 09:26
[2019-02-10 18:00] VITALS: BP 124/71
[2019-02-10] MEDS: MIRTAZAPINE 15 MG TAB PO SCH (21:13)
[2019-02-10] MEDS: PRAZOSIN 1 MG CAP PO SCH (21:14)
[2019-02-11 06:25] VITALS: BP 109/61
[2019-02-11] MEDS: VENLAFAXINE **XR** 75MG CAPSULE PO SCH (09:01)
[2019-02-11] MEDS: MULTIVITAMINS/MINERALS THERAP 1 TAB PO SCH (09:01)
[2019-02-11] MEDS: busPIRone 5 MG TAB PO SCH ×3 (09:01→21:07)
[2019-02-11] MEDS: FLUTICASONE PROP 0.05% NASAL SPRAY 16 GM (FLONASE) NARES SCH (09:01)
[2019-02-11] MEDS: PANTOPRAZOLE 40MG TAB (PROTONIX) PO SCH (09:01)
[2019-02-11] MEDS: CETIRIZINE (ZyrTEC) 10 MG TAB PO SCH (09:55)
--- NOTE | 2019-02-11 14:15 | MHIPNPDOC ---
[facility] Progress Note Progress Note Inpatient Progress Note Ellie Santos MRN: N/A Date of : N/A Date of Service: 02/11/2019 History of Present Illness Patient is a 28-year-old woman with a long history of depression and PTSD presents to [facility] suicidal with a plan to jump off a local bridge. She reportedly had become increasingly depressed, anxious after stopping her medications several days prior. She reported that she felt worse for short time after having a year of generally good results of her depression treatment and began to spiral into further depression as she withdrew from her venlafaxine. She reported that her treatment lack produced insomnia, anxiety and difficulty being around others. She reportedly began to endorse severely concerning suicidal ideation and even on this assessment still has intermittent suicidal ideation. She has severe hopelessness and in general has not been getting better since stopping of her medications. Previous protective factors no longer appear to be ideal for her at this time. The patient is amenable to staying. Interval History The patient has met with today. She reports she is feeling much better and has been denying suicidal thoughts for the last day. She reports that this represents an improvement and that her depression has improved by 50% since her admission and restart on her medications. She has been doing well, cooperative and increasingly social on the unit. She has been going to groups with no major behavioral problems. Reports sleep is good, mood is improving, mild and that her hopelessness has yielded. Review Of Systems General: Denies fever or appetite changes Cardiovascular: Denies Chest pain or palpations GI: Denies Nausea, vomiting, or bowel changes Respiratory: Denies shortness of breath or cough Neuro: Denies dizziness, tremors Derm: Denies any rashes or pruritus : Denies any dysuria or urinary problems MSK: Denies any muscle tightness or stiffness HEENT: Denies any vision changes or headaches Heme/Lymph: denies any bruising or bleeding Endo: denies any cold/heat intolerance or water intake changes Psychotherapy None on this visit. Vital Signs Reviewed. Mental Status Examination General: Well dressed with good hygiene Speech: Spontaneous and fluid Thought processes: Linear and logical MSK: Smooth and coordinated gait, no signs of tremors or involuntary orofacial movements Thought content: Future orientated Abstract reasoning, and computation: Intact Description of associations: Intact Description of abnormal or psychotic thoughts: Denies any suicidal or homicidal ideation. Denies any auditory or visual hallucinations. Does not appear to be responding to internal stimuli. Does not appear to be endorsing any bizarre or paranoid ideation. Judgment: fair Insight: fair Orientation: Alert and orientated 3 Cognition: Grossly normal Recent and remote memory: Intact Attention span and concentration: Intact Fund of knowledge: Adequate Mood: "okay" Affect: Euthymic with a full range Diagnoses MDD, unspecified. PTSD, chronic. Bulimia. Assessment and Plan MDD/PTSD: Continue home medications at this time, no changes needed. Bulimia: We will continue to watch if symptoms emerge on inpatient where she might need to have further monitoring. Disposition Discharge tomorrow. Patient improved. No longer meets involuntary criteria. Declines further voluntary. Time Spent 15 minutes. Sunday Vital Signs Vital Signs Date Time Temp Pulse Resp B/P (MAP) Pulse Ox O2 Delivery O2 Flow Rate FiO2 02/11/19 06:25 98.6 82 16 109/61 (77) Room Air 02/05/19 22:39 99 Current Medications Current Medications Medications (Trade) Dose Ordered Sig/Christian Route PRN Reason Start Time Stop Time Status Last Admin Dose Admin Acetaminophen (Tylenol Tab) 650 mg Q6HP PRN PO HEADACHE or DISCOMFORT 02/05/19 19:30 02/07/19 15:15 Al Hydrox/Mg Hydrox/Simethicone (Mylanta) 30 ml Q4HP PRN PO HEARTBURN/INDIGESTION 02/05/19 19:30 Buspirone HCl (Buspar) 5 mg TID PO 02/05/19 21:00 02/11/19 09:01 Cetirizine HCl (ZyrTEC) 10 mg DAILY PO 02/07/19 09:00 02/11/19 09:55 Cetylpyridinium Chloride (Cepacol) 1 marilin Q2HP PRN PO COUGH 02/08/19 10:30 Fluticasone Propionate (Flonase 0.05% Nasal [place]) 2 spray DAILY NARES 02/06/19 09:00 02/11/19 09:01 Home Med (Med Rec Complete!) ASDIRECTED XX 02/05/19 18:45 02/05/19 18:45 DC Magnesium Hydroxide (Milk Of Magnesia) 30 ml DAILYPRN PRN PO CONSTIPATION 02/05/19 19:30 Mirtazapine (Remeron) 15 mg QHS PO 02/05/19 21:00 02/10/19 21:13 Multivitamins (Theragram-M) 1 tab DAILY PO 02/06/19 09:00 02/11/19 09:01 Pantoprazole Sodium (Protonix) 40 mg DAILY PO 02/06/19 09:00 02/11/19 09:01 Prazosin HCl (Minipress) 3 mg QHS PO 02/05/19 21:00 02/10/19 21:14 Venlafaxine HCl (Effexor Xr) 150 mg DAILY PO 02/06/19 09:00 02/11/19 09:01 Allergies Coded Allergies: bee venom protein (honey bee) (Verified Allergy, Unknown, 02/05/19) hydroxyzine (Verified Adverse Reaction, Unknown, 02/05/19) CRAIG BAEZ DO Feb 11, 2019 14:15
[2019-02-11 16:16] VITALS: BP 117/69
[2019-02-11] MEDS: MIRTAZAPINE 15 MG TAB PO SCH (21:07)
[2019-02-11 21:08] VITALS: BP 122/68
[2019-02-11] MEDS: PRAZOSIN 1 MG CAP PO SCH (21:08)
[2019-02-12 06:59] VITALS: BP 111/61
[2019-02-12] MEDS: busPIRone 5 MG TAB PO SCH (08:38)
[2019-02-12] MEDS: CETIRIZINE (ZyrTEC) 10 MG TAB PO SCH (08:38)
[2019-02-12] MEDS: PANTOPRAZOLE 40MG TAB (PROTONIX) PO SCH (08:38)
[2019-02-12] MEDS: MULTIVITAMINS/MINERALS THERAP 1 TAB PO SCH (08:38)
[2019-02-12] MEDS: VENLAFAXINE **XR** 75MG CAPSULE PO SCH (08:39)
[2019-02-12] MEDS: FLUTICASONE PROP 0.05% NASAL SPRAY 16 GM (FLONASE) NARES SCH (08:39)
--- NOTE | 2019-02-12 10:09 | MHDSPDOC ---
[facility] Discharge Summary Discharge Summary DATE OF ADMISSION: Feb 05, 2019 at 19:16 DATE OF DISCHARGE: 02/12/19 Ellie Santos Discharge Ellie Santos Select Gender MRN: N/A Date of : MM/DD/YYYY Date of Service: 02/12/2019 Diagnoses MDD, unspecified. PTSD, chronic. Bulimia. History of Present Illness Patient is a 28-year-old woman with a long history of depression and PTSD presents to [facility] suicidal with a plan to jump off a local bridge. She reportedly had become increasingly depressed, anxious after stopping her medications several days prior. She reported that she felt worse for short time after having a year of generally good results of her depression treatment and began to spiral into further depression as she withdrew from her venlafaxine. She reported that her treatment lack produced insomnia, anxiety and difficulty being around others. She reportedly began to endorse severely concerning suicidal ideation and even on this assessment still has intermittent suicidal ideation. She has severe hopelessness and in general has not been getting better since stopping of her medications. Previous protective factors no longer appear to be ideal for her at this time. The patient is amenable to staying. Consultants Involved Hospitalist/PCP screening Treatment and Progress On The Unit The patient was admitted to the inpatient unit initially after not taking her medications for several days. She reportedly presented in likely MDD versus adjustment after experiencing withdrawal side effects from her venlafaxine. She was restarted on her home medications and observed. She had no signs or symptoms of bulimia that reoccurred and no purging behaviors noticed on the unit. The patient was amenable, friendly and became increasingly better with her depression, improving from a 10/10 to a 4/10 by the end of her admission. She did well and became much more social. The patient does demonstrate that she is very amenable to most treatments and at times appears avoidant. The patient did well and on the day of discharge declined further voluntary admission and did not meet involuntary admission extension as she had been denying suicidal and homicidal ideation for the last several days and had a normal mental status exam with no significant impairment by her mental health processes. She was cooperative, friendly, and well engaged in treatment and thus was discharged in good [place]el to a transitional living service. Discharge Assessment 28-year-old woman with an extensive history of depression, some noncompliance, and potential PTSD, presents after stopping her medications, becoming increasingly depressed. She does well after a short supportive inpatient stay. She eventually no longer meets involuntary criteria and declines a further voluntary admission, and thus is discharged in good [place]el after significant discussion of the risks of stopping her medications suddenly. Mental Status Examination General: Well dressed with good hygiene Speech: Spontaneous and fluid Thought processes: Linear and logical MSK: Smooth and coordinated gait, no signs of tremors or involuntary orofacial movements Thought content: Future orientated Abstract reasoning, and computation: Intact Description of associations: Intact Description of abnormal or psychotic thoughts: Denies any suicidal or homicidal ideation. Denies any auditory or visual hallucinations. Does not appear to be responding to internal stimuli. Does not appear to be endorsing any bizarre or paranoid ideation. Judgment: fair Insight: fair Orientation: Alert and orientated 3 Cognition: Grossly normal Recent and remote memory: Intact Attention span and concentration: Intact Fund of knowledge: Adequate Mood: "okay" Affect: Euthymic with a full range Follow Up The social work team worked during the predischarge meeting in order to evaluate for further issues of lethality address them fully before discharge. They worked on safety planning with the patient's family members in order to ensure that the patient will have a safe and effective discharge. Time Spent The amount of time spent in the coordination of care for this patient was approximately 60 minutes. Vital Signs/I&Os Vital Signs Date Time Temp Pulse Resp B/P (MAP) Pulse Ox O2 Delivery O2 Flow Rate FiO2 02/12/19 06:59 99.8 88 14 111/61 (78) 02/11/19 06:25 Room Air Laboratory Data Microbiology Microbiology 02/09/19 Respiratory Virus Panel (PCR) (TIGRE) - Final, Complete Medications Scheduled Buspirone HCl (Buspirone HCl) 5 Mg Tab, 5 MG PO TID, (Reported) Mirtazapine (Remeron) 15 Mg Tab, 15 MG PO QHS, (Reported) Multivitamin (Multivitamins) 1 Each Capsule, 1 CAP PO DAILY, (Reported) Pantoprazole Sodium (Pantoprazole Sodium) 40 Mg Tab, 40 MG PO DAILY, (Reported) Prazosin Hcl (Prazosin HCl) 2 Mg Cap, 2 MG PO QHS, (Reported) TOTAL OF 3MG Prazosin Hcl (Prazosin HCl) 1 Mg Capsule, 1 MG PO QHS, (Reported) TOTAL OF 3MG Venlafaxine HCl (Venlafaxine HCl ER) 150 Mg Cap.er.24h, 150 MG PO DAILY, (Reported) Scheduled PRN Epinephrine (Epipen 2-Bob) 0.3 Mg/0.3 Ml Inj, 1 SYRINGE IM for ANAPHYLAXIS, (Reported) Allergies Coded Allergies: bee venom protein (honey bee) (Verified Allergy, Unknown, 02/05/19) hydroxyzine (Verified Adverse Reaction, Unknown, 02/05/19) CRAIG BAEZ DO Feb 12, 2019 10:09
== END 2019-02-12 10:50 | disposition home or self-care (01) | DRG 881 ==
LOC: M ED 14:31 → M ED INP 19:16 → M PSY 21:55
PROVIDERS: ADMIT Psychiatry & Neurology Psychiatry; ATTEND Psychiatry & Neurology Addiction Medicine
DX: F32.9 Major depressive disorder, single episode, unspecified (principal); F50.2 Bulimia nervosa; F43.12 Post-traumatic stress disorder, chronic; G43.909 Migraine, unspecified, not intractable, without status migrainosus; R56.9 Unspecified convulsions; K21.9 Gastro-esophageal reflux disease without esophagitis; Z91.5 Personal history of self-harm; J06.9 Acute upper respiratory infection, unspecified; Z62.810 Personal history of physical and sexual abuse in childhood; Z79.899 Other long term (current) drug therapy; Z91.030 Bee allergy status; Z88.8 Allergy status to other drugs, medicaments and biological substances; Z91.14 Patient's other noncompliance with medication regimen

== ENCOUNTER 2019-08-16 19:10 | Inpatient (IN) | payer MEDICARE, MEDICAID ==
[~2019-08-16] VITALS: Ht 170.2 cm; Wt 6.2 kg
[~2019-08-16 19:10] MED LIST changes: -FLUO20CA19; -FLUO20CA19 PO; +FLUO20CA20 PO; +FLUO20CA22; +FLUO20CA22 PO; -FLUO20CA8 PO; +MULTCAP PO; +OMEP1CAP73 PO; -OMEP20CA4 PO; +PRAZ1CAP PO
[2019-08-16] MEDS ORDERED: [UNRECOGNIZED DRUG - OTHER] PO (19:31)
[2019-08-16 19:52] LABS: HEMATOCRIT 35.5 % (36.0-47.0); HEMOGLOBIN 10.9 g/dl (12.0-15.5); MEAN CORPUSCULAR HEMOGLOBIN 25.8 pg (27.0-33.0); MEAN CORPUSCULAR HGB CONC 30.7 g/dl (32.0-36.5); MEAN CORPUSCULAR VOLUME 84.1 fl (80.0-96.0); PLATELET COUNT, AUTOMATED 258 10^3/uL (150-450); RED BLOOD COUNT 4.22 10^6/uL (4.00-5.40)
[2019-08-16 20:14] LABS: HCG, SERUM QUALITATIVE NEGATIVE (NEGATIVE)
[2019-08-16 20:20] LABS: AMPHETAMINES LEVEL URINE NEGATIVE (NEGATIVE); BARBITURATES URINE NEGATIVE (NEGATIVE); BENZODIAZEPINES URINE NEGATIVE (NEGATIVE); CANNABINOIDS URINE NEGATIVE (NEGATIVE); COCAINE METABOLITE URINE NEGATIVE (NEGATIVE); METHADONE URINE NEGATIVE (NEGATIVE); OPIATES URINE NEGATIVE (NEGATIVE); PHENCYCLIDINE URINE NEGATIVE (NEGATIVE)
[2019-08-16 20:36] LABS: ACETAMINOPHEN LEVEL < 2.0 UG/ML (10.0-30.0); ALBUMIN 3.8 GM/DL (3.2-5.2); ALT/SGPT 15 U/L (12-78); BILIRUBIN,DIRECT < 0.1 MG/DL (0.0-0.2); BILIRUBIN,TOTAL 0.2 MG/DL (0.2-1.0); BLOOD UREA NITROGEN 5 MG/DL (7-18); CALCIUM LEVEL 8.5 MG/DL (8.5-10.1); CARBON DIOXIDE LEVEL 27 MEQ/L (21-32); CHLORIDE LEVEL 108 MEQ/L (98-107); CREATININE FOR GFR 0.82 MG/DL (0.55-1.30); ETHYL ALCOHOL (ETHANOL) 0.003 % (0.000-0.010); GLOMERULAR FILTRATION RATE > 60.0 (>60); GLUCOSE, FASTING 91 MG/DL (70-100); POTASSIUM SERUM 4.2 MEQ/L (3.5-5.1); SALICYLATE LEVEL 1.7 MG/DL (5.0-30.0); SODIUM LEVEL 141 MEQ/L (136-145); TOTAL PROTEIN 6.9 GM/DL (6.4-8.2)
[2019-08-16] MEDS ORDERED: NICOTINE 21MG/24HR 1 EA TRANSDERMAL TD PRN (21:45)
[2019-08-16] MEDS ORDERED: MAALOX 30 ML SUSP *UDC PO PRN (21:45)
[2019-08-16] MEDS ORDERED: MOM 30ML SUSPENSION UDC PO PRN (21:45)
[2019-08-16] MEDS ORDERED: ACETAMINOPHEN TAB 650MG DOSE (2X325MG) PO PRN (21:45)
[2019-08-16] MEDS ORDERED: OLANZapine ORAL DISINTEGRATING TAB 5MG PO PRN (21:45)
[2019-08-16 22:30] VITALS: BP 128/71
[2019-08-17 06:23] VITALS: BP 144/78
[2019-08-17] MEDS: PANTOPRAZOLE 40MG TAB (PROTONIX) PO SCH (08:53)
[2019-08-17] MEDS: VENLAFAXINE **XR** 75MG CAPSULE PO SCH (08:53)
[2019-08-17] MEDS: busPIRone 5 MG TAB PO SCH ×3 (08:53→20:43)
[2019-08-17] MEDS: BACITRACIN OINTMENT 30GM TUBE TOP SCH ×2 (09:00→20:44)
[2019-08-17] MEDS ORDERED: MULTIVITAMINS/MINERALS THERAP 1 TAB PO ONE (12:00)
[2019-08-17 16:44] VITALS: BP 134/67
[2019-08-17] MEDS: MIRTAZAPINE 15 MG TAB PO SCH (20:43)
[2019-08-17] MEDS: PRAZOSIN 1 MG CAP PO SCH ×2 (20:43)
[2019-08-18 06:36] VITALS: BP 102/59
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
[2019-08-18] MEDS: VENLAFAXINE **XR** 75MG CAPSULE PO SCH (09:10)
[2019-08-18] MEDS: PANTOPRAZOLE 40MG TAB (PROTONIX) PO SCH (09:10)
[2019-08-18] MEDS: BACITRACIN OINTMENT 30GM TUBE TOP SCH ×2 (09:10→21:00)
[2019-08-18] MEDS: busPIRone 5 MG TAB PO SCH ×3 (09:10→21:03)
[2019-08-18] MEDS: MULTIVITAMINS/MINERALS THERAP 1 TAB PO SCH (09:10)
--- NOTE | 2019-08-18 10:05 | MHIPNPDOC ---
[facility] Progress Note Progress Note DATE OF SERVICE: 08/18/19 29-year-old woman seen in follow-up. Today, she reports she is "doing fine" although she still has "some thoughts.", She continues to report that she feels she needs a few more days to get better. The patient has notably had no behavioral problems of the weekend Vital Signs Vital Signs Date Time Temp Pulse Resp B/P (MAP) Pulse Ox O2 Delivery O2 Flow Rate FiO2 08/18/19 06:36 97.2 75 12 102/59 (73) 97 Room Air Current Medications Current Medications Medications (Trade) Dose Ordered Sig/Christian Route PRN Reason Start Time Stop Time Status Last Admin Dose Admin Acetaminophen (Tylenol Tab) 650 mg Q6HP PRN PO HEADACHE or DISCOMFORT 08/16/19 21:45 Al Hydrox/Mg Hydrox/Simethicone (Mylanta) 30 ml Q4HP PRN PO HEARTBURN/INDIGESTION 08/16/19 21:45 Bacitracin (Bacitracin Oint) to lacerations on ri... BID TOP 08/17/19 09:00 08/21/19 21:01 08/18/19 09:10 Buspirone HCl (Buspar) 5 mg TID PO 08/17/19 09:00 08/18/19 09:10 Home Med (Med Rec Complete!) ASDIRECTED XX 08/16/19 21:00 08/16/19 21:02 DC Magnesium Hydroxide (Milk Of Magnesia) 30 ml DAILYPRN PRN PO CONSTIPATION 08/16/19 21:45 Mirtazapine (Remeron) 15 mg QHS PO 08/17/19 21:00 08/17/19 20:43 Multivitamins (Theragram-M) 1 tab DAILY PO 08/18/19 09:00 08/18/19 09:10 Nicotine (Nicoderm Cq 21mg) 1 patch DAILY PRN TD Nicotine withdrawl. 08/16/19 21:45 Olanzapine (ZyPREXA ZYDIS) 5 mg Q4HP PRN PO ANXIETY/AGITATION 08/16/19 21:45 Pantoprazole Sodium (Protonix) 40 mg DAILY PO 08/17/19 09:00 08/18/19 09:10 Prazosin HCl (Minipress) 1 mg QHS PO 08/17/19 21:00 08/17/19 20:43 Prazosin HCl (Minipress) 2 mg QHS PO 08/17/19 21:00 08/17/19 20:43 Venlafaxine HCl (Effexor Xr) 150 mg DAILY PO 08/17/19 09:00 08/18/19 09:10 Allergies Coded Allergies: bee venom protein (honey bee) (Verified Allergy, Unknown, 02/05/19) hydroxyzine (Verified Adverse Reaction, Unknown, 02/05/19) Review of Systems Review of Systems General: Denies: Fatigue HEENT: Denies: Head Aches Skin: Denies: Rash Pulmonary: Denies: Dyspnea Cardiovascular: Denies: Chest Pain, Palpitations, Lt Headedness Gastrointestinal: Denies: Nausea, Vomiting, Abdominal Pain Neurological: Denies: Weakness, Numbness Mental Status Examination General Appearance: well groomed Build: average Demeanor: average Eye Contact: average Activity: average Behavior: cooperative Speech: clear Mood: euthymic Affect: full Thought Process: logical/linear Thought Content (Delusions): none reported Thought Content (Other): none reported ("some thoughts") Thought Content (Aggressive): none reported Perception (Hallucinations): none reported Cognition (Impairment of): none reported Cognition(Intelligence Est.): average Oriented: Awake, Alert Insight: fair, poor Judgment: Fair, Poor Psychosis: Denies Assessment 29-year-old won't likely history of PTSD and depression as well as cluster B personality traits presents for follow-up, she appears to making some progress note any medication changes as would be expected in situational problems Problem List Problems: (1) Depression Status: Acute Response to Treatment: Improving Discussed With: Nurse Problem Specific Plan: Monitor Clinically Problem Text: Continue home medications (2) PTSD (post-traumatic stress disorder) Status: Chronic Problem Specific Plan: Monitor Clinically Problem Text: Continue home medications (3) Cluster B personality disorder Status: Chronic Response to Treatment: Stable Problem Specific Plan: Monitor Clinically Medications Scheduled Buspirone HCl (Buspirone HCl) 5 Mg Tab, 5 MG PO TID, (Reported) Mirtazapine (Remeron) 15 Mg Tab, 15 MG PO QHS, (Reported) Multivitamin (Multivitamins) 1 Each Capsule, 1 CAP PO DAILY, (Reported) Pantoprazole Sodium (Pantoprazole Sodium) 40 Mg Tab, 40 MG PO DAILY, (Reported) Prazosin Hcl (Prazosin HCl) 2 Mg Cap, 2 MG PO QHS, (Reported) TOTAL OF 3MG Prazosin Hcl (Prazosin HCl) 1 Mg Capsule, 1 MG PO QHS, (Reported) TOTAL OF 3MG Venlafaxine HCl (Venlafaxine HCl ER) 150 Mg Cap.er.24h, 150 MG PO DAILY, (Reported) [clenbuterol] , 20 MCG PO DAILY, (Reported) Scheduled PRN Epinephrine (Epipen 2-Bob) 0.3 Mg/0.3 Ml Inj, 1 SYRINGE IM for ANAPHYLAXIS, (Reported) CRAIG BAEZ DO Aug 18, 2019 10:05
[2019-08-18 15:13] VITALS: BP 117/70
[2019-08-18] MEDS: MIRTAZAPINE 15 MG TAB PO SCH (21:03)
[2019-08-18] MEDS: PRAZOSIN 1 MG CAP PO SCH ×2 (21:04)
[2019-08-19 06:38] VITALS: BP 103/56
[2019-08-19] MEDS: MULTIVITAMINS/MINERALS THERAP 1 TAB PO SCH (08:39)
[2019-08-19] MEDS: VENLAFAXINE **XR** 75MG CAPSULE PO SCH (08:39)
[2019-08-19] MEDS: busPIRone 5 MG TAB PO SCH ×3 (08:39→20:54)
[2019-08-19] MEDS: PANTOPRAZOLE 40MG TAB (PROTONIX) PO SCH (08:39)
[2019-08-19] MEDS: BACITRACIN OINTMENT 30GM TUBE TOP SCH ×2 (08:39→20:55)
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
--- NOTE | 2019-08-19 09:12 | MHIPNPDOC ---
[facility] Progress Note Progress Note The patient was seen on 08/19/19. 29-year-old woman is seen in follow-up, she reports her medications are sufficient for her. And that her depression and suicidal thoughts are resolving . Discussed the patient at length about her eating disorder and potential options in treatment, she was grateful but ultimately uninterested in residential stating that she was not "thin enough". The patient reports that she has weight-loss meds mood from her apartment. She said no behavioral problems overnight. Vital Signs Vital Signs Date Time Temp Pulse Resp B/P (MAP) Pulse Ox O2 Delivery O2 Flow Rate FiO2 08/19/19 06:38 98.1 64 14 103/56 (72) 98 Room Air Current Medications Current Medications Medications (Trade) Dose Ordered Sig/Christian Route PRN Reason Start Time Stop Time Status Last Admin Dose Admin Acetaminophen (Tylenol Tab) 650 mg Q6HP PRN PO HEADACHE or DISCOMFORT 08/16/19 21:45 Al Hydrox/Mg Hydrox/Simethicone (Mylanta) 30 ml Q4HP PRN PO HEARTBURN/INDIGESTION 08/16/19 21:45 Bacitracin (Bacitracin Oint) to lacerations on ri... BID TOP 08/17/19 09:00 08/21/19 21:01 08/19/19 08:39 Buspirone HCl (Buspar) 5 mg TID PO 08/17/19 09:00 08/19/19 08:39 Home Med (Med Rec Complete!) ASDIRECTED XX 08/16/19 21:00 08/16/19 21:02 DC Magnesium Hydroxide (Milk Of Magnesia) 30 ml DAILYPRN PRN PO CONSTIPATION 08/16/19 21:45 Mirtazapine (Remeron) 15 mg QHS PO 08/17/19 21:00 08/18/19 21:03 Multivitamins (Theragram-M) 1 tab DAILY PO 08/18/19 09:00 08/19/19 08:39 Nicotine (Nicoderm Cq 21mg) 1 patch DAILY PRN TD Nicotine withdrawl. 08/16/19 21:45 Olanzapine (ZyPREXA ZYDIS) 5 mg Q4HP PRN PO ANXIETY/AGITATION 08/16/19 21:45 Pantoprazole Sodium (Protonix) 40 mg DAILY PO 08/17/19 09:00 08/19/19 08:39 Prazosin HCl (Minipress) 1 mg QHS PO 08/17/19 21:00 08/18/19 21:04 Prazosin HCl (Minipress) 2 mg QHS PO 08/17/19 21:00 08/18/19 21:04 Venlafaxine HCl (Effexor Xr) 150 mg DAILY PO 08/17/19 09:00 08/19/19 08:39 Allergies Coded Allergies: bee venom protein (honey bee) (Verified Allergy, Unknown, 02/05/19) hydroxyzine (Verified Adverse Reaction, Unknown, 02/05/19) Review of Systems Review of Systems Skin: Denies: Rash Pulmonary: Denies: Dyspnea Cardiovascular: Denies: Chest Pain, Palpitations Gastrointestinal: Denies: Nausea, Vomiting, Diarrhea, Constipation Neurological: Denies: Weakness, Numbness Mental Status Examination General Appearance: well groomed Build: average Demeanor: average Eye Contact: average Activity: average Behavior: cooperative Mood: depressed Affect: constricted Thought Process: logical/linear Thought Content (Delusions): none reported, denies SI, HI, AVH Thought Content (Other): none reported Thought Content (Aggressive): none reported Perception (Hallucinations): none reported Perception (Other): none reported Cognition (Impairment of): none reported Insight: improving Judgment: Improving Psychosis: Denies Problem List Problems: (1) Depression Status: Acute Response to Treatment: Improving Discussed With: Nurse Problem Specific Plan: Monitor Clinically Problem Text: Continue home medications (2) PTSD (post-traumatic stress disorder) Status: Chronic Problem Specific Plan: Monitor Clinically Problem Text: Continue home medications (3) Cluster B personality disorder Status: Chronic Response to Treatment: Stable Problem Specific Plan: Monitor Clinically (4) Eating disorder, unspecified Status: Chronic Response to Treatment: Stable Discussed With: Nurse, Patient, Other Discussed With: (tls) Problem Specific Plan: Monitor Clinically Medications Scheduled Buspirone HCl (Buspirone HCl) 5 Mg Tab, 5 MG PO TID, (Reported) Mirtazapine (Remeron) 15 Mg Tab, 15 MG PO QHS, (Reported) Multivitamin (Multivitamins) 1 Each Capsule, 1 CAP PO DAILY, (Reported) Pantoprazole Sodium (Pantoprazole Sodium) 40 Mg Tab, 40 MG PO DAILY, (Reported) Prazosin Hcl (Prazosin HCl) 2 Mg Cap, 2 MG PO QHS, (Reported) TOTAL OF 3MG Prazosin Hcl (Prazosin HCl) 1 Mg Capsule, 1 MG PO QHS, (Reported) TOTAL OF 3MG Venlafaxine HCl (Venlafaxine HCl ER) 150 Mg Cap.er.24h, 150 MG PO DAILY, (Reported) [clenbuterol] , 20 MCG PO DAILY, (Reported) Scheduled PRN Epinephrine (Epipen 2-Bob) 0.3 Mg/0.3 Ml Inj, 1 SYRINGE IM for ANAPHYLAXIS, (Reported) CRAIG BAEZ DO Aug 19, 2019 09:12
[2019-08-19 17:07] VITALS: BP 121/71
[2019-08-19] MEDS: MIRTAZAPINE 15 MG TAB PO SCH (20:54)
[2019-08-19] MEDS: PRAZOSIN 1 MG CAP PO SCH ×2 (20:54)
[2019-08-20 06:33] VITALS: BP 116/69
[2019-08-20] MEDS: busPIRone 5 MG TAB PO SCH ×3 (08:53→21:05)
[2019-08-20] MEDS: MULTIVITAMINS/MINERALS THERAP 1 TAB PO SCH (08:53)
[2019-08-20] MEDS: PANTOPRAZOLE 40MG TAB (PROTONIX) PO SCH (08:53)
[2019-08-20] MEDS: VENLAFAXINE **XR** 75MG CAPSULE PO SCH (08:54)
[2019-08-20] MEDS: BACITRACIN OINTMENT 30GM TUBE TOP SCH ×2 (08:54→21:00)
--- NOTE | 2019-08-20 09:14 | MHIPNPDOC ---
[facility] Progress Note Progress Note The patient was seen on 08/20/19. Events Overnight: no major events Group Attedence:, attends groups Symptom changes (psych ROS): reports improving depression, fatigue and loss of interest Staff Report: reports that she has been making some strides although is very pre-contemplative about changing her perception about her body weight and her eating disorder. Medical ROS: Gen: -fevers, chills Cardio: -chest pain, palpations [place]: -SOB, cough GI: -N,V,D,C Neuro: -tremors, msk stiffness Derm: -rash MSE: General: Well dressed with good hygiene Speech: Spontaneous and fluid Thought processes: Linear and logical Thought content: Future orientated Abstract reasoning, and computation: Intact Description of associations: Intact Description of abnormal or psychotic thoughts:Denies any suicidal or homicidal ideation. Denies any auditory or visual hallucinations. Does not appear to be responding to internal stimuli. Does not appear to be endorsing any bizarre or paranoid ideation. Judgment: fair Insight: fair Orientation: Alert and orientated 3 Recent and remote memory: Intact Attention span and concentration: Intact Fund of knowledge: Adequate Mood: "okay" Affect: Euthymic with a full range Vital Signs Vital Signs Date Time Temp Pulse Resp B/P (MAP) Pulse Ox O2 Delivery O2 Flow Rate FiO2 08/20/19 06:33 97.3 68 12 116/69 (85) 98 Room Air Current Medications Current Medications Medications (Trade) Dose Ordered Sig/Christian Route PRN Reason Start Time Stop Time Status Last Admin Dose Admin Acetaminophen (Tylenol Tab) 650 mg Q6HP PRN PO HEADACHE or DISCOMFORT 08/16/19 21:45 Al Hydrox/Mg Hydrox/Simethicone (Mylanta) 30 ml Q4HP PRN PO HEARTBURN/INDIGESTION 08/16/19 21:45 Bacitracin (Bacitracin Oint) to lacerations on ri... BID TOP 08/17/19 09:00 08/21/19 21:01 08/20/19 08:54 Buspirone HCl (Buspar) 5 mg TID PO 08/17/19 09:00 08/20/19 08:53 Home Med (Med Rec Complete!) ASDIRECTED XX 08/16/19 21:00 08/16/19 21:02 DC Magnesium Hydroxide (Milk Of Magnesia) 30 ml DAILYPRN PRN PO CONSTIPATION 08/16/19 21:45 Mirtazapine (Remeron) 15 mg QHS PO 08/17/19 21:00 08/19/19 20:54 Multivitamins (Theragram-M) 1 tab DAILY PO 08/18/19 09:00 08/20/19 08:53 Nicotine (Nicoderm Cq 21mg) 1 patch DAILY PRN TD Nicotine withdrawl. 08/16/19 21:45 Olanzapine (ZyPREXA ZYDIS) 5 mg Q4HP PRN PO ANXIETY/AGITATION 08/16/19 21:45 Pantoprazole Sodium (Protonix) 40 mg DAILY PO 08/17/19 09:00 08/20/19 08:53 Prazosin HCl (Minipress) 1 mg QHS PO 08/17/19 21:00 08/19/19 20:54 Prazosin HCl (Minipress) 2 mg QHS PO 08/17/19 21:00 08/19/19 20:54 Venlafaxine HCl (Effexor Xr) 150 mg DAILY PO 08/17/19 09:00 08/20/19 08:54 Allergies Coded Allergies: bee venom protein (honey bee) (Verified Allergy, Unknown, 02/05/19) hydroxyzine (Verified Adverse Reaction, Unknown, 02/05/19) Problems (1) Depression Status: Acute Response to Treatment: Improving Discussed With: Nurse Problem Specific Plan: Monitor Clinically Problem Text: Continue home meds (2) PTSD (post-traumatic stress disorder) Status: Chronic Problem Specific Plan: Monitor Clinically Problem Text: Continue home meds (3) Cluster B personality disorder Status: Chronic Response to Treatment: Stable Problem Specific Plan: Monitor Clinically Problem Text: Continue home meds (4) Eating disorder, unspecified Status: Chronic Response to Treatment: Stable Discussed With: Nurse, Patient, Other Discussed With: (tls) Problem Specific Plan: Monitor Clinically Plan / VTE VTE Prophylaxis Ordered?: No Plan Diet: Continue Current Activity: Continue Current Anticipated Discharge: Other Anticipated D/C (tls tomorrow) CRAIG BAEZ DO Aug 20, 2019 09:14
[2019-08-20 17:15] VITALS: BP 119/83
[2019-08-20] MEDS: MIRTAZAPINE 15 MG TAB PO SCH (21:05)
[2019-08-20] MEDS: PRAZOSIN 1 MG CAP PO SCH ×2 (21:06→21:07)
[2019-08-20 21:07] VITALS: BP 120/74
[2019-08-21 06:34] VITALS: BP 119/57
[2019-08-21] MEDS: PANTOPRAZOLE 40MG TAB (PROTONIX) PO SCH (08:46)
[2019-08-21] MEDS: VENLAFAXINE **XR** 75MG CAPSULE PO SCH (08:46)
[2019-08-21] MEDS: BACITRACIN OINTMENT 30GM TUBE TOP SCH (08:47)
[2019-08-21] MEDS: busPIRone 5 MG TAB PO SCH (08:47)
[2019-08-21] MEDS: MULTIVITAMINS/MINERALS THERAP 1 TAB PO SCH (08:47)
--- NOTE | 2019-08-21 09:28 | MHIPNPDOC ---
[facility] Progress Note Progress Note DATE OF SERVICE: 08/21/19 HISTORY: . VITAL SIGNS: See below. NEW TEST RESULTS: . CURRENT MEDICATIONS: See below. MENTAL STATUS EXAMINATION: Patient is a -year old female, who is . Speech: Is . Language skills are . Thought processes including: . Thought content: . Abstract reasoning, and computation: . Description of assoc iations: . Description of abnormal or psychotic thoughts: . Judgment: . Insight: [very limited, good, fair. poor]. Orientation: . Recent and remote memory: . Attention span and concentration: . Language: . Fund of knowledge: . Mood: . Affect: . DIAGNOSES: 1. . 2. . 3. . ASSESSMENT: MANAGEMENT PLAN: . TIME SPENT: minutes. Vital Signs Vital Signs Date Time Temp Pulse Resp B/P (MAP) Pulse Ox O2 Delivery O2 Flow Rate FiO2 08/21/19 06:34 99.1 81 18 119/57 (77) 99 Room Air Current Medications Current Medications Medications (Trade) Dose Ordered Sig/Christian Route PRN Reason Start Time Stop Time Status Last Admin Dose Admin Acetaminophen (Tylenol Tab) 650 mg Q6HP PRN PO HEADACHE or DISCOMFORT 08/16/19 21:45 Al Hydrox/Mg Hydrox/Simethicone (Mylanta) 30 ml Q4HP PRN PO HEARTBURN/INDIGESTION 08/16/19 21:45 Bacitracin (Bacitracin Oint) to lacerations on ri... BID TOP 08/17/19 09:00 08/21/19 21:01 08/21/19 08:47 Buspirone HCl (Buspar) 5 mg TID PO 08/17/19 09:00 08/21/19 08:47 Home Med (Med Rec Complete!) ASDIRECTED XX 08/16/19 21:00 08/16/19 21:02 DC Magnesium Hydroxide (Milk Of Magnesia) 30 ml DAILYPRN PRN PO CONSTIPATION 08/16/19 21:45 Mirtazapine (Remeron) 15 mg QHS PO 08/17/19 21:00 08/20/19 21:05 Multivitamins (Theragram-M) 1 tab DAILY PO 08/18/19 09:00 08/21/19 08:47 Nicotine (Nicoderm Cq 21mg) 1 patch DAILY PRN TD Nicotine withdrawl. 08/16/19 21:45 Olanzapine (ZyPREXA ZYDIS) 5 mg Q4HP PRN PO ANXIETY/AGITATION 08/16/19 21:45 Pantoprazole Sodium (Protonix) 40 mg DAILY PO 08/17/19 09:00 08/21/19 08:46 Prazosin HCl (Minipress) 1 mg QHS PO 08/17/19 21:00 08/20/19 21:06 Prazosin HCl (Minipress) 2 mg QHS PO 08/17/19 21:00 08/20/19 21:07 Venlafaxine HCl (Effexor Xr) 150 mg DAILY PO 08/17/19 09:00 08/21/19 08:46 Allergies Coded Allergies: bee venom protein (honey bee) (Verified Allergy, Unknown, 02/05/19) hydroxyzine (Verified Adverse Reaction, Unknown, 02/05/19) CRAIG BAEZ 4, 2020 09:28
--- NOTE | 2019-08-21 09:28 | MHDSPDOC ---
[facility] Discharge Summary Discharge Summary DATE OF ADMISSION: August 16, 2019 at 21:32 DATE OF DISCHARGE: 08/21/2019 DISCHARGE DIAGNOSES: See Problem list below REASON FOR ADMISSION: 29-year-old woman admitted after suicidal statements made, she has been abusing clenbuterol as part of her eating disorder. CONSULTANTS INVOLVED:[ None (basic hospitalist screening)] TREATMENT AND PROGRESS ON THE UNIT : Medication changes: no changes made to home medications, restarted without incident Behavior on unit: generally some hopelessness, the patient reported that she was ambivalent about treating her eating disorder, although she reported hopelessness when specifically asked she denied overt suicidality. Treatment attedence: she did attend groups at times, and was open to suggestions Notable issues on presentation:. There'd been some concerns about her hopeless statements, however, the patient had denied any overt suicidality for number of days prior to discharge State on discharge: stable DISCHARGE ASSESSMENT: 29-year-old woman with a history of likely eating disorder and cluster B personality traits presents and is assumed her home medications, clenbuterol is well-known for causing difficulties with depression and this coul d be a need is for her presentation. We've recommended outpatient eating disorder treatment such as residential, the patient is open to considering it. Although hopeless statements are made at times, she reports that she has no suicidality. She request to go and must be discharged in good [place]. The patient at the time of discharge did not meet criteria for involuntary admission/extension due to having a [normal] mental status exam, [fair] insight into the situation, They are engaged in the discharge process, as well as being friendly and amenable in behavioral control and havent been engaging in any observed concerning behavior or ideation recently. They decline voluntary extension/admission at this time and must be discharged in good chantel, as Im unable to make a case for holding the patient against their will. They may have historical risk factors of admissions and other interactions with psychiatry however, those are not modifiable from a clinical perspective. The patient will need to be discharged in good chantel. MENTAL STATUS EXAMINATION ON DISCHARGE: [General: Well dressed with good hygiene Speech: Spontaneous and fluid Thought processes: Linear and logical Thought content: Future orientated Abstract reasoning, and computation: Intact Description of associations: Intact Description of abnormal or psychotic thoughts:Denies any suicidal or homicidal ideation. Denies any auditory or visual hallucinations. Does not appear to be responding to internal stimuli. Does not appear to be endorsing any bizarre or paranoid ideation. Judgment: fair Insight: fair Orientation: Alert and orientated 3 Recent and remote memory: Intact Attention span and concentration: Intact Fund of knowledge: Adequate Mood: "okay" Affect: Euthymic with a full range] PLAN/FOLLOWUP ARRANGEMENTS: Follow up appointments made and safety plan completed. The amount of time spent in the coordination of care for this patient was approximately 30 minutes. Vital Signs/I&Os Vital Signs Date Time Temp Pulse Resp B/P (MAP) Pulse Ox O2 Delivery O2 Flow Rate FiO2 08/21/19 06:34 99.1 81 18 119/57 (77) 99 Room Air Medications Scheduled Buspirone HCl (Buspirone HCl) 5 Mg Tab, 5 MG PO TID, (Reported) Mirtazapine (Remeron) 15 Mg Tab, 15 MG PO QHS, (Reported) Multivitamin (Multivitamins) 1 Each Capsule, 1 CAP PO DAILY, (Reported) Pantoprazole Sodium (Pantoprazole Sodium) 40 Mg Tab, 40 MG PO DAILY, (Reported) Prazosin Hcl (Prazosin HCl) 2 Mg Cap, 2 MG PO QHS, (Reported) TOTAL OF 3MG Prazosin Hcl (Prazosin HCl) 1 Mg Capsule, 1 MG PO QHS, (Reported) TOTAL OF 3MG Venlafaxine HCl (Venlafaxine HCl ER) 150 Mg Cap.er.24h, 150 MG PO DAILY, (Reported) Scheduled PRN Epinephrine (Epipen 2-Bob) 0.3 Mg/0.3 Ml Inj, 1 SYRINGE IM for ANAPHYLAXIS, (Reported) Allergies Coded Allergies: bee venom protein (honey bee) (Verified Allergy, Unknown, 02/05/19) hydroxyzine (Verified Adverse Reaction, Unknown, 02/05/19) Plan / VTE VTE Prophylaxis Ordered?: No Problems (1) Depression Status: Resolved (2) PTSD (post-traumatic stress disorder) Status: Chronic (3) Cluster B personality disorder Status: Chronic (4) Eating disorder, unspecified Status: Chronic Plan / VTE VTE Prophylaxis Ordered?: No CRAIG BAEZ DO Aug 21, 2019 09:28
== END 2019-08-21 13:06 | disposition home or self-care (01) | DRG 881 ==
LOC: M ED 19:10 → M ED INP 21:32 → M PSY 22:28
PROVIDERS: ADMIT Psychiatry & Neurology Addiction Medicine; ATTEND Psychiatry & Neurology Addiction Medicine
DX: F32.9 Major depressive disorder, single episode, unspecified (principal); F60.89 Other specific personality disorders; F43.10 Post-traumatic stress disorder, unspecified; F50.9 Eating disorder, unspecified; Z79.899 Other long term (current) drug therapy; Z88.8 Allergy status to other drugs, medicaments and biological substances; Z91.030 Bee allergy status; F17.210 Nicotine dependence, cigarettes, uncomplicated; G43.909 Migraine, unspecified, not intractable, without status migrainosus; K21.9 Gastro-esophageal reflux disease without esophagitis

== ENCOUNTER 2020-06-21 09:41 | Emergency (ER) | payer MEDICARE, MEDICAID ==
[~2020-06-21] VITALS: Ht 170.2 cm; Wt 58.2 kg
[~2020-06-21 09:41] MED LIST changes: +MIRT-62 PO; +PANT40TA29 PO; -PANT40TA3 PO; -REME15TA PO; +[UNRECOGNIZED DRUG - OTHER] PO
[2020-06-21] MEDS ORDERED: NS 1,000 ML IV ONE (10:00)
[2020-06-21 10:34] LABS: BASO % 0.6 % (0.0-1.0); EOS # 0.1 10^3/uL (0.0-0.5); EOS % 1.5 % (0.0-3.0); HEMATOCRIT 42.5 % (36.0-47.0); HEMOGLOBIN 13.3 g/dl (12.0-15.5); LYMPH # 1.4 10^3/uL (1.5-5.0); LYMPH % 29.1 % (24.0-44.0); MEAN CORPUSCULAR HEMOGLOBIN 27.8 pg (27.0-33.0); MEAN CORPUSCULAR HGB CONC 31.3 g/dl (32.0-36.5); MEAN CORPUSCULAR VOLUME 88.7 fl (80.0-96.0); MONO # 0.3 10^3/uL (0.0-0.8); MONO % 7.2 % (2.0-8.0); NEUTROPHILS # 2.9 10^3/uL (1.5-8.5); NEUTROPHILS % 61.6 % (36.0-66.0); PLATELET COUNT, AUTOMATED 232 10^3/uL (150-450); RED BLOOD COUNT 4.79 10^6/uL (4.00-5.40); WHITE BLOOD COUNT 4.7 10^3/uL (4.0-10.0)
[2020-06-21 11:05] LABS: HCG, SERUM QUALITATIVE NEGATIVE (NEGATIVE)
[2020-06-21 11:22] LABS: ACETAMINOPHEN LEVEL < 2.0 UG/ML (10.0-30.0); ALBUMIN 3.9 GM/DL (3.2-5.2); ALT/SGPT 18 U/L (12-78); BILIRUBIN,DIRECT < 0.1 MG/DL (0.0-0.2); BILIRUBIN,TOTAL 0.1 MG/DL (0.2-1.0); BLOOD UREA NITROGEN 7 MG/DL (7-18); CALCIUM LEVEL 8.3 MG/DL (8.5-10.1); CARBON DIOXIDE LEVEL 25 MEQ/L (21-32); CHLORIDE LEVEL 111 MEQ/L (98-107); CPK CREATINE PHOSPHOKINASE 142 U/L (26-192); CREATININE FOR GFR 0.78 MG/DL (0.55-1.30); ETHYL ALCOHOL (ETHANOL) < 0.003 % (0.000-0.010); GLOMERULAR FILTRATION RATE > 60.0 (>60); GLUCOSE, FASTING 111 MG/DL (70-100); POTASSIUM SERUM 3.6 MEQ/L (3.5-5.1); SALICYLATE LEVEL < 1.7 MG/DL (5.0-30.0); SODIUM LEVEL 145 MEQ/L (136-145); TOTAL PROTEIN 6.9 GM/DL (6.4-8.2)
[2020-06-21] MEDS ORDERED: diphenhydrAMINE 50MG/ML VIAL (J1200) IM ONE (11:45)
[2020-06-21] MEDS ORDERED: LORazepam 2 MG/ML VIAL IM ONE (11:45)
[2020-06-21] MEDS ORDERED: HALOPERIDOL 5MG/ML VIAL (J1630 PER 1) IM ONE (11:45)
[2020-06-21 13:44] LABS: AMPHETAMINES LEVEL URINE NEGATIVE (NEGATIVE); BARBITURATES URINE NEGATIVE (NEGATIVE); BENZODIAZEPINES URINE NEGATIVE (NEGATIVE); CANNABINOIDS URINE NEGATIVE (NEGATIVE); COCAINE METABOLITE URINE NEGATIVE (NEGATIVE); METHADONE URINE NEGATIVE (NEGATIVE); OPIATES URINE NEGATIVE (NEGATIVE); PHENCYCLIDINE URINE NEGATIVE (NEGATIVE)
[2020-06-21 22:19] LABS: RSV AMPLIFICATION NEGATIVE (NEGATIVE)
[2020-06-21] MEDS ORDERED: ACETAMINOPHEN TAB 650MG DOSE (2X325MG) PO ONE (22:30)
[2020-06-22 00:18] VITALS: BP 132/70
--- NOTE | 2020-06-22 17:49 | ECGEPIP ---
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
== END 2020-06-22 00:21 ==
LOC: M ED 09:41
DX: T14.91XA Suicide attempt, initial encounter (principal); T50.902A Poisoning by unspecified drugs, medicaments and biological substances, intentional self-harm, initial encounter; F31.9 Bipolar disorder, unspecified; F43.10 Post-traumatic stress disorder, unspecified; F60.3 Borderline personality disorder; Z88.8 Allergy status to other drugs, medicaments and biological substances; Z91.030 Bee allergy status; Z79.899 Other long term (current) drug therapy

== ENCOUNTER 2020-11-07 00:42 | Emergency (ER) | payer MEDICARE, MEDICAID ==
[~2020-11-07 00:42] MED LIST changes: +GABA-283 PO; -GABA-845 PO
[2020-11-07] MEDS ORDERED: CALCIUM CHLORIDE 10% 1 GM/10 ML SYR ONE (00:43)
[2020-11-07] MEDS ORDERED: ROCURONIUM BROMIDE 50 MG/5 ML VIAL ONE (00:43)
[2020-11-07] MEDS ORDERED: SODIUM BICARBONATE 8.4% INJ 50 ML SYRINGE ONE (00:43)
[2020-11-07] MEDS ORDERED: ETOMIDATE INJ 20MG/10ML VIAL ONE (00:43)
[2020-11-07] MEDS ORDERED: EPINEPHrine 1MG/10ML SYRINGE 1.5IN ONE (00:43)
[2020-11-07] MEDS ORDERED: ONDANSETRON 4MG/2ML VIAL As Ordered ONE (00:45)
[2020-11-07] MEDS ORDERED: LORazepam 2 MG/ML VIAL As Ordered ONE (00:46)
[2020-11-07] MEDS ORDERED: LORazepam 2 MG/ML VIAL IV STA ×3 (00:46→06:56)
[2020-11-07] MEDS ORDERED: ONDANSETRON 4MG/2ML VIAL IV ONE (00:50)
[2020-11-07] MEDS ORDERED: NS 1,000 ML IV ONE ×2 (00:50→00:55)
[2020-11-07 01:15] LABS: BASO # 0.1 10^3/uL (0.0-0.2); BASO % 0.7 % (0.0-1.0); EOS # 0.2 10^3/uL (0.0-0.5); HEMATOCRIT 39.7 % (36.0-47.0); LYMPH # 3.1 10^3/uL (1.5-5.0); LYMPH % 32.9 % (24.0-44.0); MEAN CORPUSCULAR HEMOGLOBIN 28.6 pg (27.0-33.0); MEAN CORPUSCULAR HGB CONC 32.7 g/dl (32.0-36.5); MEAN CORPUSCULAR VOLUME 87.3 fl (80.0-96.0); MONO # 0.7 10^3/uL (0.0-0.8); MONO % 7.6 % (2.0-8.0); NEUTROPHILS # 5.4 10^3/uL (1.5-8.5); NEUTROPHILS % 56.6 % (36.0-66.0); PLATELET COUNT, AUTOMATED 289 10^3/uL (150-450); RED BLOOD COUNT 4.55 10^6/uL (4.00-5.40); WHITE BLOOD COUNT 9.5 10^3/uL (4.0-10.0)
[2020-11-07] MEDS ORDERED: BUSP10TA PO (01:34)
[2020-11-07] MEDS ORDERED: VENL37.598 PO (01:34)
[2020-11-07] MEDS ORDERED: VENL150C43 PO (01:35)
[2020-11-07] MEDS ORDERED: HOME MED LIST COMPLETE! XX SCH (01:40)
[2020-11-07 01:44] LABS: OSMOLALITY SERUM 305 MOSM/KG (275-295)
[2020-11-07 01:47] LABS: HCG, SERUM QUALITATIVE NEGATIVE (NEGATIVE)
[2020-11-07 02:03] LABS: ACETAMINOPHEN LEVEL < 2.0 UG/ML (10.0-30.0); ALBUMIN 3.6 GM/DL (3.2-5.2); ALT/SGPT 21 U/L (12-78); BILIRUBIN,DIRECT < 0.1 MG/DL (0.0-0.2); BILIRUBIN,TOTAL 0.2 MG/DL (0.2-1.0); BLOOD UREA NITROGEN 13 MG/DL (7-18); CALCIUM LEVEL 8.5 MG/DL (8.5-10.1); CARBON DIOXIDE LEVEL 26 MEQ/L (21-32); CHLORIDE LEVEL 106 MEQ/L (98-107); CPK CREATINE PHOSPHOKINASE 129 U/L (26-192); CREATININE FOR GFR 0.85 MG/DL (0.55-1.30); ETHYL ALCOHOL (ETHANOL) < 0.003 % (0.000-0.010); GLOMERULAR FILTRATION RATE > 60.0 (>60); GLUCOSE, FASTING 324 MG/DL (70-100); POTASSIUM SERUM 4.4 MEQ/L (3.5-5.1); SALICYLATE LEVEL < 1.7 MG/DL (5.0-30.0); SODIUM LEVEL 138 MEQ/L (136-145); TOTAL PROTEIN 6.9 GM/DL (6.4-8.2)
[2020-11-07] MEDS ORDERED: PROPOFOL 1,000 MG/100 ML VIAL As Ordered ONE (02:24)
[2020-11-07 02:30] VITALS: BP 143/69
[2020-11-07 02:33] LABS: RSV AMPLIFICATION NEGATIVE (NEGATIVE)
[2020-11-07 02:38] LABS: AMPHETAMINES LEVEL URINE NEGATIVE (NEGATIVE); BARBITURATES URINE NEGATIVE (NEGATIVE); BENZODIAZEPINES URINE NEGATIVE (NEGATIVE); CANNABINOIDS URINE NEGATIVE (NEGATIVE); COCAINE METABOLITE URINE NEGATIVE (NEGATIVE); METHADONE URINE NEGATIVE (NEGATIVE); OPIATES URINE NEGATIVE (NEGATIVE); PHENCYCLIDINE URINE NEGATIVE (NEGATIVE)
[2020-11-07] MEDS ORDERED: EPINEPHrine 1MG/10ML SYRINGE 1.5IN IV STA (06:56)
[2020-11-07] MEDS ORDERED: SODIUM BICARBONATE 8.4% INJ 50 ML SYRINGE IV STA (06:56)
[2020-11-07] MEDS ORDERED: ETOMIDATE INJ 20MG/10ML VIAL IV STA (06:56)
[2020-11-07] MEDS ORDERED: ROCURONIUM BROMIDE 50 MG/5 ML VIAL IV SCH (07:00)
[2020-11-07] MEDS ORDERED: CALCIUM CHLORIDE 10% 1 GM in D5W 100 ML IV ONE (07:00)
--- NOTE | 2020-11-07 07:09 | CCN ---
CRITICAL CARE NOTE DATE: 11/07/2020 Critical care time was 45 minutes; this excludes all procedures. SUBJECTIVE: I arrived to the emergency room as Dr. Tao called me on a patient who had taken an over 3 gm dose of 24 dinitrophenol. According to toxicology, this was a lethal amount of the substance ingested and toxicology recommended supportive care. Patient had been receiving IVF. On my arrival, the patient was already hyperthermic, tachycardiac, diaphoretic, tachypneic with increased foaming. The first course of action was to intubate the patient in order to provide [place] cooling procedures and attempt gastric decontamination. Shortly after intubation, the patient's temperature climbed to 107 and it appears that she started seizing, went into a monomorphic V-tach. By the time pads were placed, the patient was then in asystole. CPR was initiated. Epinephrine was given every 3 minutes. Three amps of bicarbonate was given. Calcium was given. As mentioned in the intubation note, because of her seizure activity, she was clamped down on the tube and no ventilation could pass through the tube, so then I nasally intubated her with a 5.0 tube. The oral ett tube was deflated to allow the passage of the nasogastric tube. Tracehal rings were identified and bagging became easier with improvement of oxygen saturations. After close to 30 minutes of CPR, time of was called at 2:55. According to the slot floorperson, this was a lethal dose. We had discussed with the slot floorperson prior to intubation the use of dantrolene, which was controversial and unlikely to help. Of note post mortem it did appear there was dislodging of both the oral and nasal ETT tubes by staff. CAUSE OF : Intentional ingestion of 24 dinitrophenol. station examiner was contacted by emergency room physician. ANA LUISA
--- NOTE | 2020-11-07 08:57 | ECGEPIP ---
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
--- NOTE | 2020-11-07 10:15 | RO ---
OPERATIVE NOTE DATE OF OPERATION: 11/07/2020 PREPROCEDURAL DIAGNOSIS: Tachypnea, respiratory distress, Hyperthermia, lethal ingestion of DNP. POSTOPERATIVE DIAGNOSIS: Same PROCEDURE: Endotracheal intubation. SURGEON: Madi Aldana DO CIGARETTE TESTER: None ANESTHESIA: MEDICATIONS USE FOR RAPID SEQUENCE INTUBATION: Including 20 etomidate, 50 mcg of rocuronium DESCRIPTION OF PROCEDURE: The patient was placed in the supine position, pre-oxygen at 100% FiO2, rapid sequence intubation was initiated with sedation followed by paralysis. 7.5 endotracheal tube was placed with #4 glide scope. There was a grade 1 view. Cuff was inflated. Oxygen saturations remained above 90% during the entire procedure. Shortly after the patient's temperature climbed. The patient clinched down on tube and mouth could not be opened, and we could not bag through the tube. Therefore, I performed a nasal intubation with a 5.0 tube with a disposable bronchoscope through the right nares. This was performed with a disposable bronchoscope. Direct visiion of the nasal tracheal tube in the airway was confirmed with tracheal rings visualized. Bagging became easier through the nasal tube and oxygen saturation improved. The patient ultimately passed. Please see code note. MTDD
== END 2020-11-07 07:24 | disposition expired ==
LOC: M ED 00:42
DX: T65 Toxic effect of other and unspecified substances (principal); F17.200 Nicotine dependence, unspecified, uncomplicated; F31.9 Bipolar disorder, unspecified; Z91.030 Bee allergy status
CPT/HCPCS: 31500; 80048; 80076; 80143; 80307; 82077; 82550; 82803; 83605; 83930; 84443; 84703; 85025; 87631; 92950; 93005; 93041; 96361; 96374; 96375; 96376; 99285; J2060; J2405

== ENCOUNTER → 2020-11-08 | Outpatient (REF) ==
[~2020-11-08] MED LIST changes: +VENL37.598 PO
== END ==
LOC: M LAB 08:41